=== PATIENT | female | born 1960 | race American Indian/Alaskan Native ===

== ENCOUNTER 2021-11-01 02:38 | Inpatient (IN) | payer MEDICARE ==
[2021-11-01] MEDS ORDERED: HEPARIN 10,000 UNITS/10 ML VIAL IV ONE (02:45)
--- NOTE | 2021-11-01 02:57 | Emergency Department Report ---
ED Chest Pain HPI - General Chief Complaint: Chest Pain Stated Complaint: CHEST PAIN STEMI PUI?: No Time Seen by Provider: 11/01/21 02:45 Source: patient, EMS Mode of arrival: Stretcher Limitations: No Limitations - History of Present Illness Initial Comments: Chief complaint: Chest pain HPI: This is a 60-year-old female with a history of hypertension, tobacco dependence, extensive family history of cardiac disease, HIV on ART, hepatitis C, GERD who presents with severe 10 out of 10 sudden onset of chest pain while watching TV 30 minutes prior to arrival. Her daughter called 911. [facility] informed charge nurse per phone that patient had ST elevation on cardiac tracing. Prior to patient's arrival I requested code STEMI Acetone Button Paster activation. Dr. Alfaro called prior to patient's arrival to obtain information. Upon the patient's arrival EMS cardiac tracing did indeed reveal 3 mm to [address] elevation in anterior leads. Patient received aspirin and 2 nitroglycerin tablets prior to arrival. She does not have a history of cardiac disease. Her son and both parents both had history of cardiac disease. Her son is due to cardiovascular disease. Patient has tight pressure burning sensation substernal radiating to the left chest. She also has concomitant shortness of breath nausea vomiting. Patient receives primary care at [facility], [place]. Complaint: chest pain -: Sudden, minutes(s) (30 minutes prior to arrival) Onset: during rest Pain Location: substernal Pain Radiation: other (Left chest) Severity: severe Severity scale (0 -10): 10 Quality: tightness, pressure, other (Burning) Consistency: constant Improves With: nothing Worsens With: nothing re: nausea, vomting, dyspnea Treatments Prior to Arrival: aspirin, nitroglycerin, other (No relief with aspirin or nitroglycerin patient received 324 mg of aspirin via EMS) - Related Data Allergies Allergy/AdvReac Type Severity Reaction Status Date / Time No Known Allergies Allergy Unverified 11/01/21 02:53 Heart Score - HEART Score History: Highly suspicious EKG: Significant ST-depression Age: 45-65 Risk factors: 1-2 risk factors Troponin: < normal limit HEART Score: 6 - EKG Read Time Time EKG Completed: 02:42 EKG Read Time: 02:42 - Critical Actions Critical Actions: 4-6 pts:12-16.6% risk of adverse cardiac event. Should be admitted ED Review of Systems ROS: Stated complaint: CHEST PAIN STEMI Other details as noted in HPI Comment: All other systems reviewed and negative Constitutional: denies: chills, fever, malaise Respiratory: shortness of breath. denies: cough, wheezing Cardiovascular: chest pain Gastrointestinal: nausea, vomiting ED Past Medical Hx - Past Medical History Previous Medical History?: Yes Hx Hypertension: Yes Hx GERD: Yes Hx Psychiatric Treatment: Yes (Depression) Hx HIV: Yes Additional medical history: Hep C - Surgical History Past Surgical History?: Yes Additional Surgical History: Hysterectomy. Knee replacement - Family History Family history: vascular disease - Social History Smoking Status: Current Every Day Smoker Substance Use Type: None ED Physical Exam - General Limitations: No Limitations General appearance: alert, anxious, other (Appears in severe pain appears uncomfortable slightly anxious) - Head Head exam: Present: atraumatic, normocephalic - Eye Eye exam: Present: normal appearance - ENT ENT exam: Present: mucous membranes moist - Neck Neck exam: Present: normal inspection, full ROM - Respiratory Respiratory exam: Present: normal lung sounds bilaterally. Absent: respiratory distress, wheezes, rales, rhonchi - Cardiovascular Cardiovascular Exam: Present: regular rate, normal rhythm. Absent: systolic murmur, diastolic murmur, rubs, gallop - GI/Abdominal GI/Abdominal exam: Present: soft, normal bowel sounds - Extremities Exam Extremities exam: Present: normal inspection - Neurological Exam Neurological exam: Present: alert, oriented X3 - Psychiatric Psychiatric exam: Present: normal affect, anxious - Skin Skin exam: Present: warm, dry, intact, normal color. Absent: rash ED Course Vital Signs 11/01/21 02:40 Temperature 98.3 F Pulse Rate 70 Respiratory 14 Rate Blood Pressure 126/71 Blood Pressure 126/71 [Right] O2 Sat by Pulse 100 Oximetry ED Medical Decision Making - Lab Data Result diagrams: 11/01/21 02:53 11/01/21 02:53 - EKG Data -: EKG Interpreted by Me EKG shows normal: sinus rhythm Rate: normal - EKG Data 11/01/21 03:01 EKG obtained 0242 EKG interpreted by me Rate 70 bpm normal sinus rhythm normal axis prolonged IL interval normal QTC ST elevation 2 to 4 mm V1 through V5. - Medical Decision Making Acute anterolateral [place]. Code STEMI activation prior to patient's arrival after receiving verbal report from EMS. Patient has equal blood pressure in both arms. Patient treated with heparin bolus and nitroglycerin infusion. With severe pain despite nitroglycerin infusion, patient received IV morphine. Work-up notable for leukocytosis nonspecific, PT PTT within normal limits chemistry revealed troponin value within normal range, Critical Care Time: Yes Critical care time in (mins) excluding proc time.: 40 Critical care attestation.: If time is entered above; I have spent that time in minutes in the direct care of this critically ill patient, excluding procedure time. 40 minutes of critical care time excluding procedures were used in the care of the patient. I discussed case with department secretary and charge nurse. I requested STEMI alert and Acetone Button Paster activation. I came immediately to the bedside upon patient's arrival. I obtained history from EMS at the bedside. I discussed treatment plan with the nursing team members. I reviewed electronic record. P atient required multiple interventions and reassessments. Spoke with python consultant Dr. Alfaro prior to patient's arrival and upon her arrival. I spoke with hospitalist who came immediately to the bedside to evaluate patient for admission. ED Disposition Clinical Impression: Acute anterolateral myocardial infarction, ST elevation myocardial infarction (STEMI) Disposition: ADMITTED INPATIENT Is pt being admited?: Yes Does the pt Need Aspirin: No Condition: Fair
[2021-11-01] MEDS: NITROGLYCERIN DRIP 50 MG/250 ML BOTTLE IV SCH ×2 (03:02→04:57)
[2021-11-01] MEDS ORDERED: MORPHINE 4 MG/1 ML INJ IV ONE (03:04)
[2021-11-01] MEDS ORDERED: MORPHINE 4 MG/1 ML INJ ONE (03:05)
[2021-11-01] MEDS ORDERED: MORPHINE 2 MG/1 ML INJ IV PRN (03:07)
[2021-11-01] MEDS ORDERED: HYDROmorphone 1 MG/1 ML INJ IV PRN (03:07)
[2021-11-01] MEDS ORDERED: ONDANSETRON 4 MG/2 ML INJ IV PRN (03:07)
[2021-11-01] MEDS ORDERED: NITROGLYCERIN 0.4 MG TAB SUBL SL PRN (03:07)
[2021-11-01] MEDS ORDERED: ALBUTEROL 2.5 MG/3 ML NEBU IH PRN (03:07)
[2021-11-01] MEDS ORDERED: SODIUM CHLORIDE 0.9% 1000 ML 1,000 ML IV SCH (03:15)
--- NOTE | 2021-11-01 03:16 | History and Physical Report ---
History of Present Illness Date of examination: 11/01/21 Date of admission: 11/01/21 Chief complaint: Chest pain History of present illness: 60-year-old female with a history of hypertension, tobacco dependence, extensive family history of cardiac disease, HIV on ART, hepatitis C, GERD was brought to the emergency room because of chest pain which is sharp 10/10, while watching TV 30 minutes prior to arrival. Patient has tight pressure burning sensation substernal radiating to the left chest. She also has concomitant shortness of breath nausea vomiting. Her daughter called 911. [facility] informed charge nurse per phone that patient had ST elevation on cardiac tracing. Prior to patient's arrival I requested code STEMI Spray Gun Striper activation. Dr. Alfaro called prior to patient's arrival to obtain information. Upon the patient's arrival EMS cardiac tracing did indeed reveal 3 mm [place] [address] elevation in anterior leads. Patient received aspirin and 2 nitroglycerin tablets prior to arrival. She does not have a history of cardiac disease. Her son and both parents both had history of cardiac disease. Her son is due to cardiovascular disease. In the emergency room patient is found to have ST elevation [place]. Subsequently case discussed with on-call alarm field technician and patient is going to the Spray Gun Striper for further intervention. All labs are pending Past History Past Medical History: GERD, hepatitis, hypertension, other (Tube okay abuse, HIV, hepatitis C) Medications and Allergies Allergies Allergy/AdvReac Type Severity Reaction Status Date / Time No Known Allergies Allergy Unverified 11/01/21 02:53 Active Meds: Active Medications Nitroglycerin/Dextrose (Tridil Drip 50mg/250ml) 50 mg in 250 mls @ 3 mls/hr IV TITR SIMBA; Protocol Last Admin: 11/01/21 03:02 Dose: 10 mcg/min, 3 mls/hr Review of Systems All systems: negative Cardiovascular: chest pain, lightheadedness, shortness of breath, dyspnea on exertion Exam - Constitutional Vitals: Temp Pulse Resp BP Pulse Ox 98.3 F 70 14 126/71 100 11/01/21 02:40 11/01/21 02:40 11/01/21 02:40 11/01/21 02:40 11/01/21 02:40 General appearance: Present: severe distress - EENT Eyes: Present: PERRL ENT: hearing intact, clear oral mucosa - Neck Neck: Present: supple, normal ROM - Respiratory Respiratory effort: normal Respiratory: bilateral: diminished - Cardiovascular Heart Sounds: Present: S1 & S2. Absent: rub, click - Extremities Extremities: pulses symmetrical, No edema Peripheral Pulses: within normal limits - Abdominal General gastrointestinal: Present: soft, non-tender, non-distended, normal bowel sounds Female genitourinary: Present: normal - Integumentary Integumentary: Present: clear, warm, dry - Musculoskeletal Musculoskeletal: gait normal, strength equal bilaterally - Psychiatric Psychiatric: appropriate mood/affect, intact judgment & insight - Neurologic Neurologic: CNII-XII intact, moves all extremities HEART Score - HEART Score EKG: Significant ST-depression Age: 45-65 Risk factors: 1-2 risk factors Troponin: < normal limit - Critical Actions Critical Actions: 4-6 pts:12-16.6% risk of adverse cardiac event. Should be admitted Assessment and Plan VTE prophylaxis?: Chemical Plan of care discussed with patient/family: Yes - Patient Problems (1) ST elevation myocardial infarction (STEMI) Status: Acute Plan to address problem: Admit the patient to the ICU. Aspirin 325 mg p.o. daily. Lipitor 80 mg p.o. daily. Nitroglycerin. Morphine 2 mg IV every 4 hours as needed. We consult on-call alarm field technician for cardiac cath and patient is going to the cardiac cath for further intervention. Serial cardiac enzyme. Echocardiogram (2) Acute anterolateral myocardial infarction Status: Acute Plan to address problem: Aspirin 325 mg p.o. daily. Lipitor 80 mg p.o. daily. Nitroglycerin. Morphine 2 mg IV every 4 hours as needed. We consult on-call alarm field technician for cardiac cath and patient is going to the cardiac cath for further intervention. Serial cardiac enzyme. Echocardiogram (3) HTN (hypertension) Status: Acute Plan to address problem: Hydralazine 10 mg IV every 6 hours as needed. Cardiology evaluation. Continue home medication (4) HIV (human immunodeficiency virus infection) Status: Acute Plan to address problem: Patient is on ART. Outpatient follow-up with infectious disease (5) Tobacco abuse Status: Acute Plan to address problem: Patient counseled regarding quitting smoking. We will put the patient on nicotine patch 14 mg to the skin daily (6) Hepatitis C Status: Acute Plan to address problem: Stable. Continue home medication (7) GERD (gastroesophageal reflux disease) Status: Acute Plan to address problem: Pepcid 20 mg IV every 12 hours for GI prophylaxis (8) DVT prophylaxis Status: Acute Plan to address problem: Anticoagulation as per interventional cardiology. Pepcid 20 mg IV every 12 hours for GI prophylaxis. Patient is a full code
[2021-11-01] MEDS ORDERED: HEPARIN/NS 5000 UNIT/500ML 1,000 ML IR ONE (03:18)
[2021-11-01] MEDS ORDERED: VERAPAMIL 5 MG/2 ML INJ ONE (03:18)
[2021-11-01] MEDS ORDERED: HEPARIN 10,000 UNITS/10 ML VIAL ONE ×2 (03:18→03:47)
[2021-11-01] MEDS ORDERED: NITROGLYCERIN SYRINGE 3 ML ONE (03:19)
[2021-11-01] MEDS ORDERED: LIDOCAINE (2%) 20 MG/1 ML VIAL 20 ML MDV INFILTRATI ONE (03:19)
[2021-11-01] MEDS ORDERED: hydrALAZINE 20 MG/1 ML INJ IV PRN (03:20)
[2021-11-01 03:22] LABS: INR 0.91 (0.87-1.13)
[2021-11-01 03:23] LABS: Partial Thromboplastin Time 31.1 Sec. (24.2-36.6)
[2021-11-01 03:28] LABS: Alanine Aminotransferase 11 units/L (7-56); Albumin 3.5 g/dL (3.9-5); BUN/Creatinine Ratio 15; Blood Urea Nitrogen 23 mg/dL (7-17); Calcium 8.8 mg/dL (8.4-10.2); Hemolysis Index 4
[2021-11-01 03:37] LABS: Hematocrit 34.5 % (30.3-42.9); Hemoglobin 10.8 gm/dl (10.1-14.3); Mean Corpuscular HGB Conc 31 % (30-34); Mean Corpuscular Volume 96 fl (79-97); Platelet Count 378 K/mm3 (140-440); Red Blood Count 3.61 M/mm3 (3.65-5.03); Red Cell Distribution Width 15.9 % (13.2-15.2)
[2021-11-01] MEDS: MIDAZOLAM 2 MG/2 ML INJ ONE ×2 (03:42→03:56)
[2021-11-01] MEDS: fentaNYL 100 MCG/2 ML INJ ONE ×2 (03:43→03:55)
[2021-11-01] MEDS ORDERED: SODIUM CHLORIDE 0.9% 1000 ML 1,000 ML ONE (03:49)
[2021-11-01] MEDS ORDERED: TIROFIBAN/NS 12,500 MCG/250 ML BAG IV ONE (04:07)
[2021-11-01 04:15] LABS: RBC Morphology Normal; Total Cells Counted 100
[2021-11-01] MEDS ORDERED: TICAGRELOR 90 MG TAB ONE ×2 (04:16→11:55)
[2021-11-01] MEDS ORDERED: NITROGLYCERIN DRIP 50 MG/250 ML BOTTLE IV ONE (04:23)
--- NOTE | 2021-11-01 04:35 | Consultation ---
History of Present Illness Consult date: 11/01/21 Requesting physician: ROSA WATT Consult reason: chest pain History of present illness: Patient is a 60 with no prior cardiac history. She has a history of HIV, hepatitis C smoking and a family history of coronary artery disease. She presented by EMS after she experienced spontaneous onset of chest pain while wa tching TV. Pain radiating to her left shoulder. No particular aggravating factors no particular relieving factors associated with mild diaphoresis. EMT noticed that patient had significant ST-T wave changes and code STEMI was called in the field. On arrival to the ER patient's chest pain had significantly improved. EKG revealed anterolateral ST elevation [place]. Patient was emergently taken to the [facility] and underwent primary PCI of the LAD. Post PCI patient is doing well currently chest pain-free and is being admitted to the ICU for further post OK care. Past History Past Medical History: GERD, hepatitis, hypertension, other (Tube okay abuse, HIV , hepatitis C) Social history: smoking Family history: CAD Medications and Allergies Allergies Allergy/AdvReac Type Severity Reaction Status Date / Time No Known Allergies Allergy Unverified 11/01/21 02:53 Active Meds: Active Medications Acetaminophen (Acetaminophen 325 Mg Tab) 650 mg PO Q4H PRN PRN Reason: Pain MILD(1-3)/Fever >100.5/HOLL[place] Albuterol (Albuterol 2.5 Mg/3 Ml Nebu) 2.5 mg IH Q4HRT PRN PRN Reason: Shortness Of Breath Albuterol/Ipratropium (Ipratropium/Albuterol Sulfate 3 Ml Ampul.Neb) 1 ampul IH Q6HRT [facility] Aspirin (Aspirin Ec 325 Mg Tab) 325 mg PO QDAY SIMBA Atorvastatin Calcium (Atorvastatin 40 Mg Tab) 80 mg PO QHS SIMBA Hydralazine HCl (Hydralazine 20 Mg/1 Ml Inj) 10 mg IV Q6H PRN PRN Reason: Blood Pressure Hydromorphone HCl (Hydromorphone 1 Mg/1 Ml Inj) 0.5 mg IV Q3H PRN PRN Reason: Pain , Severe (7-10) Nitroglycerin/Dextrose (Tridil Drip 50mg/250ml) 50 mg in 250 mls @ 3 mls/hr IV TITR SIMBA; Protocol Last Titration: 11/01/21 03:15 Dose: 15 mcg/min, 4.5 mls/hr Sodium Chloride (Nacl 0.9% 1000 Ml) 1,000 mls @ 100 mls/hr IV DIRECT SIMBA Morphine Sulfate (Morphine 2 Mg/1 Ml Inj) 2 mg IV Q4H PRN PRN Reason: Pain, Moderate (4-6) Nitroglycerin (Nitroglycerin 0.4 Mg Tab Subl) 0.4 mg SL .Q5MIN PRN PRN Reason: Chest Pain Ondansetron HCl (Ondansetron 4 Mg/2 Ml Inj) 4 mg IV Q8H PRN PRN Reason: Nausea And Vomiting Sodium Chloride (Sodium Chloride 0.9% 10 Ml Flush Syringe) 10 ml IV BID SIMBA Sodium Chloride (Sodium Chloride 0.9% 10 Ml Flush Syringe) 10 ml IV PRN PRN PRN Reason: LINE FLUSH Review of Systems All systems: negative (As mentioned above) Physical Examination Vital Signs Temp Pulse Resp BP Pulse Ox 98.3 F 70 14 126/71 100 11/01/21 02:40 11/01/21 02:40 11/01/21 02:40 11/01/21 02:40 11/01/21 02:40 General appearance: no acute distress, obese HEENT: Positive: Normocephaly Neck: Positive: neck supple Cardiac: Positive: Reg Rate and Rhythm Lungs: Positive: clear to auscultation Neuro: Positive: Grossly Intact Abdomen: Positive: Unremarkable Female genitourinary: deferred Extremities: Present: normal Results 11/01/21 02:53 11/01/21 02:53 Cardiac Enzymes 11/01/21 Range/Units 02:53 AST 12 (5-40) units/L Coagulation 11/01/21 Range/Units 02:53 PT 13.3 (12.2-14.9) Sec. INR 0.91 (0.87-1.13) APTT 31.1 (24.2-36.6) Sec. CBC 11/01/21 Range/Units 02:53 WBC 17.7 H (4.5-11.0) K/mm3 RBC 3.61 L (3.65-5.03) M/mm3 Hgb 10.8 (10.1-14.3) gm/dl Hct 34.5 (30.3-42.9) % Plt Count 378 (140-440) K/mm3 Lymph # (Auto) Driver Courier Comprehensive Metabolic Panel 11/01/21 Range/Units 02:53 Sodium 135 L (137-145) mmol/L Potassium 4.2 (3.6-5.0) mmol/L Chloride 100.8 (98-107) mmol/L Carbon Dioxide 21 L (22-30) mmol/L BUN 23 H (7-17) mg/dL Creatinine 1.5 H (0.6-1.2) mg/dL Glucose 123 H (65-100) mg/dL Calcium 8.8 (8.4-10.2) mg/dL AST 12 (5-40) units/L ALT 11 (7-56) units/L Alkaline Phosphatase 199 H (35-129) units/L Total Protein 7.3 (6.3-8.2) g/dL Albumin 3.5 L (3.9-5) g/dL EKG interpretations - Telemetry EKG Rhythm: Sinus Rhythm (With acute anterolateral ST elevation minimal reciprocal ST depressions) Assessment and Plan Impression 1. Chest pain secondary to acute ST elevation [place] 2. Acute ST elevation [place] status post primary PCI of the LAD 3. Ischemic cardiomyopathy with a EF around 40% and anterior wall hypokinesis 4. Essential hypertension currently controlled on IV nitroglycerin 5. Acute renal failure 6. HIV on retroviral therapy 7. History of hepatitis C 8. Tobacco abuse 9. Obesity Plan 1. Aspirin Brilinta beta-blockers and high intensity statins 2. In view of the elevated LVEDP continue IV nitroglycerin and her blood pressure stable slowly wean off once blood pressure is stable. 3. Low-dose IV diuretics in view of the significantly elevated LVEDP and mild cardiomyopathy 4. Aggrastat for 12 5. Gentle IV hydration monitor renal function 6. Routine post OK care 7. Rest per primary team 8. Smoking cessation
[2021-11-01] MEDS ORDERED: TIROFIBAN/NS 12,500 MCG/250 ML BAG IV SCH (05:00)
[2021-11-01] MEDS: FUROSEMIDE 20 MG/2 ML INJ IV SCH ×2 (05:44→18:13)
--- NOTE | 2021-11-01 05:55 | XRay Report ---
CHEST 1 VIEW INDICATION: chest pain. COMPARISON: None FINDINGS: SUPPORT DEVICES: None. HEART: Mild diffuse interstitial prominence as could be seen with interstitial edema. No effusion. Ot herwise clear lungs. LUNGS/PLEURA: No acute air space or interstitial disease. ADDITIONAL FINDINGS: None. IMPRESSION: 1. Lung findings as above. Signer Name: Rafael Marroquin MD Signed: 11/01/2021 5:50 AM Workstation Name: [id number]
[2021-11-01 07:57] LABS: Chol/HDL Ratio 1.9 %
[2021-11-01] MEDS ORDERED: IPRATROPIUM/ALBUTEROL SULFATE 3 ML AMPUL.NEB IH SCH (08:00)
[2021-11-01] MEDS: PANTOPRAZOLE 40 MG TAB PO SCH (09:35)
[2021-11-01] MEDS: ASPIRIN 81 MG TAB CHEW PO SCH (09:37)
[2021-11-01] MEDS ORDERED: carvediloL 6.25 MG TAB PO SCH (10:00)
[2021-11-01] MEDS ORDERED: ASPIRIN EC 325 MG TAB PO SCH (10:00)
[2021-11-01] MEDS ORDERED: amLODIPine 5 MG TAB PO SCH (10:00)
--- NOTE | 2021-11-01 10:03 | Progress Note ---
Assessment and Plan - Patient Problems (1) Acute anterolateral myocardial infarction Current Visit: No Status: Acute Plan to address problem: Status post primary PCI of the mid LAD. LV systolic function was mildly to moderately impaired on LV angiography. Patient is on Aggrastat therapy. We will discontinue intravenous nitroglycerin, and switch to Imdur. Additional medicines including atorvastatin, metoprolol, baby aspirin and Brilinta. For afterload reduction, I will hold off ROBERTO or ARB due to the finding of elevated creatinine on presentation, and instead use hydralazine 50 mg 3 times daily. Procardia XL 60 mg for hypertension. Patient is stable for transfer to stepdown or telemetry. Anticipate discharge tomorrow if she remains clinically stable. Subjective Date of service: 11/01/21 Principal diagnosis: Acute myocardial infarction Interval history: Patient is comfortable, alert and oriented x3, no chest pain, following primary PCI of the mid LAD for acute STEMI. Objective Vital Signs Temp Pulse Resp BP BP Pulse Ox 11/01/21 09:36 86 153/98 11/01/21 09:34 75 153/98 11/01/21 09:31 87 17 153/98 99 11/01/21 09:21 74 18 162/88 100 11/01/21 09:11 89 21 167/98 100 11/01/21 09:01 93 H 27 H 167/98 100 11/01/21 08:51 94 H 20 164/83 100 11/01/21 08:41 81 24 161/80 100 11/01/21 08:31 78 23 161/80 100 11/01/21 08:21 92 H 15 171/86 100 11/01/21 08:11 89 20 168/130 100 11/01/21 08:01 92 H 16 168/130 100 11/01/21 07:51 101 H 17 168/130 100 11/01/21 07:43 98.0 F 11/01/21 07:41 74 20 164/96 100 11/01/21 07:30 85 18 164/96 100 11/01/21 07:21 145/85 100 11/01/21 07:11 102/68 100 11/01/21 07:05 99 11/01/21 07:01 89 19 102/68 100 11/01/21 07:00 99 11/01/21 06:51 98 H 21 102/68 100 11/01/21 06:41 98 H 21 168/90 100 11/01/21 06:31 90 15 168/90 100 11/01/21 06:21 85 21 182/86 91 11/01/21 06:11 90 24 127/94 99 11/01/21 06:01 79 21 127/94 89 11/01/21 06:00 98.1 F 11/01/21 05:51 81 20 127/94 97 11/01/21 05:41 83 19 128/87 99 11/01/21 05:31 83 20 128/87 97 11/01/21 05:21 76 29 H 128/87 97 11/01/21 05:11 86 18 11/01/21 05:09 81 11/01/21 02:40 98.3 F 70 14 126/71 126/71 100 - Physical Examination General: No Apparent Distress HEENT: Positive: Normocephaly Neck: Positive: neck supple Cardiac: Positive: Reg Rate and Rhythm Lungs: Positive: clear to auscultation Neuro: Positive: Grossly Intact Abdomen: Positive: Soft Skin: Positive: Clear Extremities: Absent: edema - Labs and Meds Cardiac Enzymes 11/01/21 Range/Units 02:53 AST 12 (5-40) units/L Coagulation 11/01/21 Range/Units 02:53 PT 13.3 (12.2-14.9) Sec. INR 0.91 (0.87-1.13) APTT 31.1 (24.2-36.6) Sec. Lipids 11/01/21 Range/Units 05:29 Triglycerides 266 H (2-149) mg/dL Cholesterol 103 (50-199) mg/dL HDL Cholesterol 54 (40-59) mg/dL Cholesterol/HDL Ratio 1.90 % CBC 11/01/21 Range/Units 02:53 WBC 17.7 H (4.5-11.0) K/mm3 RBC 3.61 L (3.65-5.03) M/mm3 Hgb 10.8 (10.1-14.3) gm/dl Hct 34.5 (30.3-42.9) % Plt Count 378 (140-440) K/mm3 Lymph # (Auto) Radio Program Checker Comprehensive Metabolic Panel 11/01/21 Range/Units 02:53 Sodium 135 L (137-145) mmol/L Potassium 4.2 (3.6-5.0) mmol/L Chloride 100.8 (98-107) mmol/L Carbon Dioxide 21 L (22-30) mmol/L BUN 23 H (7-17) mg/dL Creatinine 1.5 H (0.6-1.2) mg/dL Glucose 123 H (65-100) mg/dL Calcium 8.8 (8.4-10.2) mg/dL AST 12 (5-40) units/L ALT 11 (7-56) units/L Alkaline Phosphatase 199 H (35-129) units/L Total Protein 7.3 (6.3-8.2) g/dL Albumin 3.5 L (3.9-5) g/dL
--- NOTE | 2021-11-01 10:17 | Electrocardiograph Report ---
[facility] Test Date: 2021-11-01 Test Time: 02:42:53 Pat Name: BEKA BELLO Department: Room: A254 Gender: F Business Development: ZARA : 1960 Requested By: CHAY WASHBURN Order Number: [id number] Reading MD: Brody Vizcaino Measurements Intervals [place] Rate: 69 P: -1 FL: 215 QRS: -3 QRSD: 93 T: 45 QT: 434 QTc: 467 Interpretive Statements Sinus rhythm Borderline prolonged [place] interval Anterior infarct, acute Lateral wall also involved No previous ECG available for comparison Electronically Signed On 11-01-2021 10:17:05 EST by Brody Vizcaino
--- NOTE | 2021-11-01 10:18 | Electrocardiograph Report ---
[facility] Test Date: 2021-11-01 Test Time: 05:51:35 Pat Name: BEKA BELLO Department: Room: A254 1 Gender: F Broommaker: RESP : 1960 Requested By: VICENTE LINARES Order Number: [id number] Reading MD: Brody Vizcaino Measurements Intervals [place] Rate: 82 P: 36 FL: 235 QRS: 13 QRSD: 92 T: 28 QT: 412 QTc: 483 Interpretive Statements Sinus rhythm Prolonged FL interval ST elevations in anterior bharath normalized. Electronically Signed On 11-01-2021 10:17:59 EST by Brody Vizcaino
[2021-11-01] MEDS: NIFEdipine XL 60 MG TAB PO SCH (11:28)
[2021-11-01] MEDS: hydrALAZINE 25 MG TAB PO SCH ×2 (11:31→21:04)
[2021-11-01] MEDS: METOPROLOL TARTRATE 50 MG TAB PO SCH ×2 (11:32→21:05)
[2021-11-01] MEDS: HYDROcodone/ACETAMINOPHEN 5-325 MG TAB PO PRN ×2 (14:22→20:55)
[2021-11-01 14:30] LABS: BUN/Creatinine Ratio 19; Blood Urea Nitrogen 21 mg/dL (7-17); Calcium 9.2 mg/dL (8.4-10.2); Hemolysis Index 5
[2021-11-01 14:47] LABS: Hematocrit 34.5 % (30.3-42.9); Hemoglobin 11.1 gm/dl (10.1-14.3); Mean Corpuscular HGB Conc 32 % (30-34); Mean Corpuscular Volume 95 fl (79-97); Platelet Count 329 K/mm3 (140-440); Red Blood Count 3.63 M/mm3 (3.65-5.03); Red Cell Distribution Width 15.6 % (13.2-15.2)
--- NOTE | 2021-11-01 15:14 | Event Note ---
<DEE ROBERSON - Last Filed: 11/01/21 16:34> Date: 11/01/21 This is a 60-year-old female with HTN, HIV on antiretroviral therapy, hepatitis C, GERD, depression and current tobacco (half a pack per day for 20 years) abuse who presented to the emergency department on 11/01 with complaints of sharp chest pain 10/10 with chest tightness and substernal burning sensation with radiation to left chest associated with shortness of breath, nausea and vomiting. Code STEMI was called when EMS informed charge nurse patient had ST elevation on ECG. EMS administered aspirin and nitroglycerin x2. Upon arrival to emergency department stating was comfortable throughout the ECG and she was taken to [facility] Engineer with cardiology where she underwent primary PCI of LAD with deployment of the stent. 11/01: Patient admitted to ICU postop with Aggrastat and nitroglycerin drip. Nitroglycerin drip weaned off and patient started on oral antihypertensives. Cleared to transfer to the floor. COVID PCR pending. This is a 60-year-old female with HTN, HIV, hepatitis C, depression, GERD and current tobacco abuse admitted with STEMI Neuro: h/o depression -Resume home antidepressant when obtained -Avoid delirium -Maintain sleep-wake cycle Cardio: STEMI, CAD, ischemic cardiomyopathy, h/o HTN -Cardiology consulted, appreciate recommendations -99% occlusion of LAD -S/p PCI to LAD with deployment of stent x1 -S/p nitroglycerin drip -Aggrastat drip for 12 hours -Statin -Beta-ness, aspirin 81 mg, Brilinta, hydralazine, Procardia -Blood pressure monitor protocol -LDL panel noted -IV Lasix -Echocardiogram pending -Intraprocedure noted with ischemic cardiomyopathy ejection fraction approximately 40% and anterior wall hypokinesis -Per cardiology avoid ACEi or ARB due to elevated creatinine presentation Respiratory: Acute Hypoxic Resp. failure, h/o tobacco abuse -Home medications include albuterol -Tobacco cessation education -Supplemental oxygenation as needed -SPO2 monitoring -Pulmonary hygiene -Need outpatient follow up with Pulm GI: h/o GERD, Hep C -Cardiac diet -Encouraged lifestyle and dietary modifications upon discharge -PPI -BR: Colace -24-hour -2282 ML : Acute kidney injury likely secondary to vasomotor nephropathy, hyponatremia (resolved), metabolic acidosis (resolving) -Presented with a BUN/creatinine of 1.5/23 -11/01 BUN/creatinine 1.11/10 -On IV diuretic with Lasix -Strict I&O -Trend BMP ID: h/o HIV -resume home antiretroviral therapy once obtained -followup with outpt HIV clinic -May need CD4 count -Monitor WBC and temp curve Heme: Leukocytosis -Presented with elevated WBC -Trend CBC -Transfuse for hbg<7 -SCDs to BLE while in bed Endo: NAD -Avoid hypoglycemia Dispo: Transfer to floor with tele (cleared by cardio) The high probability of a clinically significant, sudden or life threatening deterioration of the [cardio] system(s) required my full and direct attention, intervention and personal management. The aggregate critical care time was [] minutes. This time is in addition to time spent performing reported procedures but includes the following: [x] Data Review and interpretation [x] Patient assessment and monitoring of vital signs [x] Documentation [x] Medication orders and management <ERICK SMALL - Last Filed: 11/08/21 20:21> 60 min cct
[2021-11-01] MEDS: DOCUSATE SODIUM 100 MG CAP PO SCH (21:05)
[2021-11-01] MEDS: TICAGRELOR 90 MG TAB PO SCH (21:05)
[2021-11-01] MEDS ORDERED: ALPRAZolam 0.25 MG TAB PO ONE (22:47)
--- NOTE | 2021-11-02 01:35 | Operative Report ---
DATE OF SURGERY: 11/01/2021 CORONARY ANGIOGRAM AND PERCUTANEOUS INTERVENTION REPORT PROCEDURES PERFORMED: 1. Selective left and right coronary angiogram. 2. Left ventriculogram. 3. Successful percutaneous intervention of the proximal LAD with deployment of drug-eluting stent. INDICATION: Acute anterior ST-elevation WI. MODERATE SEDATION DETAILS: Moderate sedation was given under my direct supervision and continuous hemodynamic monitoring. Versed and fentanyl was given. Sedation start time 3:39 a.m., sedation end time 4:15 a.m. Total sedation time is 36 minutes. PROCEDURE DETAILS: 1. The patient was prepped and draped in a sterile fashion after informed consent. 2. The right radial site was anesthetized using local Lidocaine infiltration. 3. The right femoral radial was entered using the Seldinger technique, followed by the placement of a 6-Guatemalan sheath. 4. Selective left and right coronary angiography was performed using 6-[place]na catheters. Angiograms were done in multiple projections. 5. Selective left ventricular angiography was done using a 6-[place] pigtail catheter. Left ventricular angiography was performed in the right anterior oblique projection. 6. The catheters were withdrawn, the sheath removed, and hemostasis was achieved.Post procedure TR band sed for complete hemostasis. 7. The patient was transferred to the post cardiac catheterization unit in stable condition. There were no complications, equipment malfunction, or technical difficulties. FINDINGS: 1. Hemodynamics: AO 148/84, LV 148/30, LVEDP was 36. 2. Left ventriculogram done in 30-degree ACHARYA projection shows moderately reduced LV systolic function, EF around 40-45% with anterior wall hypokinesis. ANGIOGRAM DETAILS: 1. Left main is angiographically normal. 2. LAD is a large caliber vessel. A complex bifurcation proximal thrombotic 99% stenosis is noted. 3. The circumflex is a medium caliber vessel with significant tortuosity, but no significant stenosis. 4. Right coronary artery is a medium caliber dominant vessel with no significant stenosis. IMPRESSION: 1. Significant complex single vessel coronary artery disease including proximal bifurcating 90% thrombotic lesion of the LAD. 2. Significantly elevated left ventricular end-diastolic pressure. 3. Moderately reduced left ventricular systolic function. PLAN: Proceed with PCI of the LAD. PERCUTANEOUS INTERVENTION DETAILS: Intravenous heparin was used to maintain therapeutic ACT. Intravenous Aggrastat also initiated given the thrombotic nature of the stenosis. A Runthrough wire was advanced across the LAD. We had difficulty crossing the second wire into the diagonal. Once the BMW wire was advanced across the diagonal, initial predilatation of the lesion was done, following which a 3.5 x 15 mm Resolute drug-eluting stent was deployed across the stenosis. This was then serially postdilated with a 3.5 and then 4.0 balloon and later on a 4.5 balloon to high atmospheres. Repeat angiogram showed good results. There was some thrombus shift into the diagonal. The diagonal wire was withdrawn and re-crossed. Slight dottering was done using a compliant balloon. Angiogram repeated. No significant diagonal occlusion noted. The patient tolerated the procedure well. Guide and wire were removed. A 180 mg of Brilinta was given. IMPRESSION: Status post successful percutaneous intervention of a complex left anterior descending bifurcation using a 3.5 x 12 mm Resolute drug-eluting stent. PLAN: 1. Aspirin for life. 2. Brilinta for 1 year, preferably more. 3. Routine post WI adjuvant pharmacotherapy and care. 4. Aggrastat for 12 hours. 5. Note, the patient had a significant tortuous diagonal LAD bifurcation. We had significant difficulty in crossing wires into the bifurcation lesion. TID: [id number] RECEIPT: [id number] MARILIN/MARIAMA/GERBER ESQUIVEL
[2021-11-02] MEDS: HYDROcodone/ACETAMINOPHEN 5-325 MG TAB PO PRN ×3 (02:43→23:05)
[2021-11-02 05:36] LABS: Basophils % (Auto) 0.4 % (0.0-1.8); Eosinophils # (Auto) 0.1 K/mm3 (0.0-0.4); Eosinophils % (Auto) 0.7 % (0.0-4.3); Hematocrit 36.2 % (30.3-42.9); Hemoglobin 11.7 gm/dl (10.1-14.3); Lymphocytes # (Auto) 2.8 K/mm3 (1.2-5.4); Lymphocytes % (Auto) 30.9 % (13.4-35.0); Mean Corpuscular HGB Conc 32 % (30-34); Mean Corpuscular Volume 94 fl (79-97); Monocytes # (Auto) 0.4 K/mm3 (0.0-0.8); Monocytes % (Auto) 4.8 % (0.0-7.3); Platelet Count 352 K/mm3 (140-440); Red Blood Count 3.85 M/mm3 (3.65-5.03); Red Cell Distribution Width 15.7 % (13.2-15.2)
[2021-11-02 05:48] LABS: BUN/Creatinine Ratio 17; Blood Urea Nitrogen 19 mg/dL (7-17); Calcium 9.4 mg/dL (8.4-10.2); Hemolysis Index 17
[2021-11-02] MEDS: hydrALAZINE 25 MG TAB PO SCH ×3 (06:28→21:00)
[2021-11-02] MEDS: FUROSEMIDE 20 MG/2 ML INJ IV SCH ×2 (06:29→17:32)
--- NOTE | 2021-11-02 08:38 | XRay Report ---
CHEST - 1 VIEW 0723 hours INDICATION: post pci COMPARISON: Yesterday FINDINGS: Support devices: None Heart: Stable cardiomediastinal silhouette. Lungs/pleura: Poor inspiration. The lungs remain generally clear. No pneumothorax. Additional findings: None. IMPRESSION: Unchanged exam. No acute process noted. Signer Name: Ilir Mason Jr, MD Signed: 11/02/2021 8:34 AM Workstation Name: [id number]
--- NOTE | 2021-11-02 10:54 | Electrocardiograph Report ---
[facility] Test Date: 2021-11-01 Test Time: 10:09:11 Pat Name: BEKA BELLO Department: Room: A474 Gender: F Immigration Case Manager: TAYLOR : 1960 Requested By: ROSA WATT Order Number: [id number] Reading MD: Brody Vizcaino Measurements Intervals Carmine Rate: 69 P: 8 RI: 207 QRS: 2 QRSD: 88 T: 23 QT: 454 QTc: 485 Interpretive Statements Sinus rhythm Atrial premature complex Left ventricular hypertrophy Abnormal T, consider ischemia, anterior leads Compared to ECG 11/01/2021 05:51:35 Atrial premature complex(es) now present Changes of evolving anterior MInoted. Electronically Signed On 11-02-2021 10:54:01 EST by Brody Vizcaino
[2021-11-02] MEDS: NIFEdipine XL 60 MG TAB PO SCH (13:00)
--- NOTE | 2021-11-02 13:12 | Progress Note ---
Assessment and Plan - Patient Problems (1) Acute anterolateral myocardial infarction Current Visit: No Status: Inactive Plan to address problem: Status post primary PCI of the mid LAD. LV systolic function was mildly to moderately impaired on LV angiography. Patient is on guideline directed medical therapy. (2) Bradycardia Current Visit: Yes Status: Acute Plan to address problem: Patient demonstrates intermittent AV block with P waves and no AV conduction. We will discontinue metoprolol, hold anticipated discharge, and request electrophysiologic consultation. Subjective Date of service: 11/02/21 Principal diagnosis: Acute myocardial infarction Interval history: The patient is comfortable in no acute distress. No new cardiac complaints. On monitoring manager, she has been demonstrating intermittent, marked bradycardia. During the night, she was described with a 6-second pause consisting of P waves with no AV conduction. This morning, there has been intermittent episodes of similar but shorter pauses. Objective Vital Signs Temp Pulse Resp BP Pulse Ox 11/02/21 12:04 100 11/02/21 06:28 70 110/67 11/02/21 04:00 70 100 11/02/21 00:00 100 11/01/21 23:33 97.9 F 68 19 110/67 100 11/01/21 22:41 73 15 121/66 98 11/01/21 22:31 59 L 17 121/66 98 11/01/21 22:21 74 27 H 121/66 94 11/01/21 22:11 72 12 121/66 95 11/01/21 22:03 72 18 121/66 94 11/01/21 22:01 72 24 121/66 97 11/01/21 21:01 71 24 145/70 96 11/01/21 20:21 64 23 151/73 98 11/01/21 20:11 87 18 146/65 98 11/01/21 20:01 74 21 146/65 100 11/01/21 20:00 97.9 F 99 11/01/21 19:51 74 20 150/80 100 11/01/21 19:42 67 11/01/21 19:41 66 23 145/83 96 11/01/21 19:30 65 19 145/83 99 11/01/21 19:21 78 23 147/87 98 11/01/21 19:11 85 29 H 146/79 99 11/01/21 19:01 69 20 146/79 96 11/01/21 18:51 74 27 H 146/80 95 11/01/21 18:41 80 21 144/71 94 11/01/21 18:30 67 13 144/71 100 11/01/21 18:21 72 19 142/79 100 11/01/21 18:11 71 20 147/75 98 11/01/21 18:00 75 22 147/75 97 11/01/21 17:51 69 23 127/83 98 11/01/21 17:41 77 18 136/75 97 11/01/21 17:30 77 21 136/75 96 11/01/21 17:21 79 26 H 127/62 97 11/01/21 17:11 70 21 130/57 99 11/01/21 17:01 77 26 H 130/57 99 11/01/21 16:51 73 24 151/70 97 11/01/21 16:47 98.3 F 11/01/21 16:41 72 15 144/67 98 11/01/21 16:30 74 16 144/67 95 11/01/21 16:21 75 19 135/84 97 11/01/21 16:11 70 18 133/81 95 11/01/21 16:00 78 19 133/81 100 11/01/21 15:51 63 16 139/65 99 11/01/21 15:41 67 20 138/57 100 11/01/21 15:30 71 18 138/57 100 11/01/21 15:21 84 17 136/58 99 11/01/21 15:11 76 21 138/71 100 11/01/21 15:00 71 16 138/71 100 11/01/21 14:51 71 17 150/60 100 11/01/21 14:41 64 15 117/84 100 11/01/21 14:30 79 19 117/84 100 11/01/21 14:21 78 15 138/88 100 11/01/21 14:11 79 18 138/73 100 11/01/21 14:01 73 20 138/73 100 11/01/21 13:51 74 21 134/78 99 11/01/21 13:41 77 19 131/75 100 11/01/21 13:31 76 19 131/75 100 11/01/21 13:21 66 21 142/72 100 11/01/21 13:11 69 15 139/83 100 - Physical Examination General: No Apparent Distress HEENT: Positive: Normocephaly Neck: Positive: neck supple Cardiac: Positive: Reg Rate and Rhythm Lungs: Positive: Decreased Breath Sounds Neuro: Positive: Grossly Intact Abdomen: Positive: Soft Skin: Positive: Clear Extremities: Absent: edema - Labs and Meds CBC 11/01/21 11/02/21 Range/Units 13:55 04:17 WBC 10.7 9.0 (4.5-11.0) K/mm3 RBC 3.63 L 3.85 (3.65-5.03) M/mm3 Hgb 11.1 11.7 (10.1-14.3) gm/dl Hct 34.5 36.2 (30.3-42.9) % Plt Count 329 352 (140-440) K/mm3 Lymph # (Auto) 2.8 (1.2-5.4) K/mm3 Gillespie # (Auto) 0.4 (0.0-0.8) K/mm3 Eos # (Auto) 0.1 (0.0-0.4) K/mm3 Baso # (Auto) 0.0 (0.0-0.1) K/mm3 Comprehensive Metabolic Panel 11/01/21 11/02/21 Range/Units 13:55 04:17 Sodium 139 136 L (137-145) mmol/L Potassium 4.8 4.5 (3.6-5.0) mmol/L Chloride 104.8 100.8 (98-107) mmol/L Carbon Dioxide 22 22 (22-30) mmol/L BUN 21 H 19 H (7-17) mg/dL Creatinine 1.1 1.1 (0.6-1.2) mg/dL Glucose 96 103 H (65-100) mg/dL Calcium 9.2 9.4 (8.4-10.2) mg/dL
[2021-11-02] MEDS: ASPIRIN 81 MG TAB CHEW PO SCH (13:40)
[2021-11-02] MEDS: TICAGRELOR 90 MG TAB PO SCH ×2 (13:42→21:00)
[2021-11-02] MEDS: PANTOPRAZOLE 40 MG TAB PO SCH (13:42)
[2021-11-02] MEDS: DOCUSATE SODIUM 100 MG CAP PO SCH ×2 (13:42→21:00)
--- NOTE | 2021-11-02 15:27 | Consultation ---
History of Present Illness Consult date: 11/02/21 Consult reason: bradycardia History of present illness: 60-year-old female with past medical history of hepatitis C and HIV presented with anterior STEMI on 11/01/2021 for which she received proximal LAD stent. She has been also found to have ischemic cardiomyopathy with LVEF 35 to 40% per echo. Electrophysiology is consulted due to prolonged pauses and bradycardia concerning for AV block. Patient currently reports shortness of breath but no chest pain. She denies lightheadedness, dizziness, or syncope. Review of telemetry shows episodes of high-grade and Mobitz 2 AV block. She has been noted to have pauses up to 6 seconds, which occurred overnight. Her beta- ness therapy has been held, and currently heart rates are 80 bpm with one-to-one AV conduction and no further AV block or pauses noted. Past History Past Medical History: GERD, hepatitis, hypertension, other (Tube okay abuse, HIV, hepatitis C) Social history: smoking Family history: CAD Medications and Allergies Allergies Allergy/AdvReac Type Severity Reaction Status Date / Time No Known Allergies Allergy Verified 11/02/21 08:55 Home Medications Medication Instructions Recorded Confirmed Last Taken Type ARIPiprazole [Abilify TAB] 5 mg PO DAILY 11/02/21 11/02/21 2 Days Ago History ~10/31/21 Albuterol Mdi (or & Nicu Only) 2 puff IH QID PRN 11/02/21 11/02/21 2 Days Ago History [ProAir HFA Inhaler] ~10/31/21 AtorvaSTATin [Lipitor] 40 mg PO QHS 11/02/21 11/02/21 2 Days Ago History ~10/31/21 Bictegrav/Emtricit/Tenofov Ala 1 tab PO QDAY 11/02/21 11/02/21 2 Days Ago History [Biktarvy 50-200-25 mg Tablet] ~10/31/21 Budesonide/Formoterol Fumarate 2 puff IH QDAY PRN 11/02/21 11/02/21 2 Days Ago History [Symbicort 80-4.5 Mcg Inhaler] ~10/31/21 Candesartan (Nf) [Atacand (Nf)] 32 mg PO QDAY 11/02/21 11/02/21 2 Days Ago History ~10/31/21 Chlorthalidone 50 mg PO QDAY 11/02/21 11/02/21 2 Days Ago History ~10/31/21 Diclofenac 1% [Diclofenac 1% 2 - 4 gm TP QID PRN 11/02/21 11/02/21 2 Days Ago History topical gel] ~10/31/21 Esomeprazole Magnesium [NexIUM] 40 mg PO QDAY 11/02/21 11/02/21 2 Days Ago History ~10/31/21 HYDROcodone/APAP 5-325 [[place] 1 tab PO BID 11/02/21 11/02/21 2 Days Ago History 5/325] ~10/31/21 Trazodone HCl 100 mg PO QHS 11/02/21 11/02/21 2 Days Ago History ~10/31/21 Valacyclovir HCl [Valacyclovir] 1,000 mg PO QDAY 11/02/21 11/02/21 2 Days Ago History ~10/31/21 amLODIPine [Norvasc] 10 mg PO DAILY 11/02/21 11/02/21 2 Days Ago History ~10/31/21 carvediloL [Coreg] 25 mg PO BID 11/02/21 11/02/21 2 Days Ago History ~10/31/21 Active Meds: Active Medications Acetaminophen (Acetaminophen 325 Mg Tab) 650 mg PO Q4H PRN PRN Reason: Pain MILD(1-3)/Fever >100.5/[place] Hydrocodone Bitart/Acetaminophen (Hydrocodone/Acetaminophen 5-325 Mg Tab) 1 each PO Q6H PRN PRN Reason: Pain, Moderate (4-6) Last Admin: 11/02/21 02:43 Dose: 1 each Albuterol (Albuterol 2.5 Mg/3 Ml Nebu) 2.5 mg IH Q4HRT PRN PRN Reason: Shortness Of Breath Aspirin (Aspirin 81 Mg Tab Chew) 81 mg PO QDAY [facility] Last Admin: 11/02/21 13:40 Dose: 81 mg Atorvastatin Calcium (Atorvastatin 40 Mg Tab) 80 mg PO QHS [facility] Last Admin: 11/01/21 21:05 Dose: 80 mg Docusate Sodium (Docusate Sodium 100 Mg Cap) 100 mg PO BID [facility] Last Admin: 11/02/21 13:42 Dose: Not Given Furosemide (Furosemide 20 Mg/2 Ml Inj) 20 mg IV 0600,1800 [facility] Last Admin: 11/02/21 06:29 Dose: 20 mg Hydralazine HCl (Hydralazine 20 Mg/1 Ml Inj) 10 mg IV Q6H PRN PRN Reason: Blood Pressure Hydralazine HCl (Hydralazine 25 Mg Tab) 50 mg PO Q8HR [facility] Last Admin: 11/02/21 13:40 Dose: 50 mg Isosorbide Mononitrate (Isosorbide Mononitrate Er 30 Mg Tab) 30 mg PO QDAY [facility] Last Admin: 11/02/21 13:42 Dose: 30 mg Nifedipine (Nifedipine Xl 60 Mg Tab) 60 mg PO QDAY [facility] Last Admin: 11/02/21 13:00 Dose: 60 mg Nitroglycerin (Nitroglycerin 0.4 Mg Tab Subl) 0.4 mg SL .Q5MIN PRN PRN Reason: Chest Pain Ondansetron HCl (Ondansetron 4 Mg/2 Ml Inj) 4 mg IV Q8H PRN PRN Reason: Nausea And Vomiting Pantoprazole Sodium (Pantoprazole 40 Mg Tab) 40 mg PO QDAC [facility] Last Admin: 11/02/21 13:42 Dose: 40 mg Sodium Chloride (Sodium Chloride 0.9% 10 Ml Flush Syringe) 10 ml IV BID [facility] Last Admin: 11/02/21 13:41 Dose: 10 ml Sodium Chloride (Sodium Chloride 0.9% 10 Ml Flush Syringe) 10 ml IV PRN PRN PRN Reason: LINE FLUSH Ticagrelor (Ticagrelor 90 Mg Tab) 90 mg PO BID [facility] Last Admin: 11/02/21 13:42 Dose: 90 mg Physical Examination Vital Signs Temp Pulse Resp BP Pulse Ox 98.3 F 70 14 126/71 100 11/01/21 02:40 11/01/21 02:40 11/01/21 02:40 11/01/21 02:40 11/01/21 02:40 Narrative exam: Generalno acute distress, well-developed HEENTatraumatic, no scleral icterus CVregular rate and rhythm, no murmurs, no JVD LungsCTAB, no wheezing or crackles Abdomensoft, nontender, nondistended, obese Extremitiesno pedal edema Skinsoft, no rash noted Neuroalert and oriented, no facial droop, no focal deficits Psychaffect appropriate Results 11/02/21 04:17 11/02/21 04:17 CBC 11/02/21 Range/Units 04:17 WBC 9.0 (4.5-11.0) K/mm3 RBC 3.85 (3.65-5.03) M/mm3 Hgb 11.7 (10.1-14.3) gm/dl Hct 36.2 (30.3-42.9) % Plt Count 352 (140-440) K/mm3 Lymph # (Auto) 2.8 (1.2-5.4) K/mm3 Jones # (Auto) 0.4 (0.0-0.8) K/mm3 Eos # (Auto) 0.1 (0.0-0.4) K/mm3 Baso # (Auto) 0.0 (0.0-0.1) K/mm3 Comprehensive Metabolic Panel 11/02/21 Range/Units 04:17 Sodium 136 L (137-145) mmol/L Potassium 4.5 (3.6-5.0) mmol/L Chloride 100.8 (98-107) mmol/L Carbon Dioxide 22 (22-30) mmol/L BUN 19 H (7-17) mg/dL Creatinine 1.1 (0.6-1.2) mg/dL Glucose 103 H (65-100) mg/dL Calcium 9.4 (8.4-10.2) mg/dL 11/01/2021 at 2:42 AM EKGsinus rhythm, anterolateral ST elevations, first-degree AV block Assessment and Plan #Paroxysmal Mobitz 2 and high-grade AV block #CAD and STEMI status post proximal LAD stent 11/01/2021 #Ischemic cardiomyopathy #Hepatitis C #HIV Review of telemetry shows episodes of high-grade AV block and Mobitz 2 AV block. In setting of recent STEMI status post revascularization, AV block may resolve. Would continue to hold beta-ness and other AV philly blocking agents at this time. Check TSH/fT4. We will monitor for recurrence of AV block over the weekend and consider pacem bere implant on Saturday (if needed). Otherwise, if no further AV block is noted, patient would benefit from outpatient event monitor. Thank you for involving us in the care of this patient.
--- NOTE | 2021-11-02 19:49 | Progress Note ---
Assessment and Plan Assessment and plan: 60-year-old female with morbid obesity, HTN, HIV on antiretroviral therapy, hepatitis C, GERD, depression and current tobacco (half a pack per day for 20 years) abuse who presented to the emergency department on 11/01 with complaints of sharp chest pain 10/10 with chest tightness and substernal burning sensation with radiation to left chest associated with shortness of breath, nausea and vomiting. Code STEMI was called when EMS informed charge nurse patient had ST elevation on ECG. EMS administered aspirin and nitroglycerin x2. Upon arrival to emergency department stating was comfortable throughout the ECG and she was taken to [facility] with cardiology where she underwent primary PCI of LAD with deployment of the stent. Post cath, admitted to ICU postop with Aggrastat and nitroglycerin drip. Nitroglycerin drip weaned off and patient started on oral antihypertensives. Cleared to transfer to the floor. COVID PCR negative. Cardio: STEMI, CAD, ischemic cardiomyopathy, h/o HTN -Cardiology consulted, appreciate recommendations -99% occlusion of LAD -S/p PCI to LAD with deployment of stent x1 -Statin - aspirin 81 mg, Brilinta, hydralazine, Procardia -IV Lasix -Echo-borderline LV dilatation, mild to moderate LVH, LVEF 35 to 40%, RVSP 40 mm. -Intraprocedure noted with ischemic cardiomyopathy ejection fraction approximately 40% and anterior wall hypokinesis -Chest x-ray shows no evidence of CHF. -Per cardiology avoid ACEi or ARB due to elevated creatinine presentation High-grade intermittent AV block, Mobitz type II -Intermittent Mobitz type II blocks noted overnight and in today on telemetry -Intermittent pauses up to 6 secondsP waves without QRS complexes Cardiology as well as EP assisting. Beta-ness and AV philly blockers on hold/to be avoided -Electrolytespotassium and magnesium normal. TSH and free T4 normal. May resolved in the setting of STEMI with stent placement If persistent may need a pacemaker -Cardiology recommends close observation in the IMCU Acute Hypoxic Resp. Insufficiency, ongoing tobacco abuse, morbid obesity -Home medications include albuterol -Tobacco cessation education -Supplemental oxygenation as needed -Weaned to room air -Need outpatient follow up with Pulm -At high risk for ROSLYN, needs to be screened if not already done Hep C History of GERD Acute kidney injury -Presented with a BUN/creatinine of 1.5/23 -Resolving, creatinine 1.1 -On IV diuretic with Lasix -Continue to monitor renal function and electrolytes h/o HIV -resume home antiretroviral therapy once obtained Leukocytosis, resolved -Presented with elevated WBC -Resolved -Likely reactive Discussed with the patient and the nursing staff. History Interval history: Patient is alert and oriented. She is eager to go home. Patient reports some paroxysmal nocturnal dyspnea. Denies chest pains or palpitations. Complains some aches in the lower extremities. Telemetry continues to report pauses consisting of none condition of QRS complexes as well as episodes of Mobitz type II AV block since last night. Cardiology currently evaluating. Currently hemodynamically stable. Hospitalist Physical - Constitutional Vitals: Temp Pulse Resp BP Pulse Ox 97.8 F 84 20 144/73 99 11/02/21 15:20 11/02/21 15:20 11/02/21 15:20 11/02/21 15:20 11/02/21 15:20 General appearance: Present: no acute distress, obese - EENT Eyes: Present: PERRL, EOM intact ENT: hearing intact - Neck Neck: Present: supple - Respiratory Respiratory effort: normal Respiratory: bilateral: CTA - Cardiovascular Rhythm: regular - Extremities Extremities: No edema - Abdominal General gastrointestinal: soft, non-tender, other (Obese) - Integumentary Integumentary: Absent: rash - Psychiatric Psychiatric: appropriate mood/affect - Neurologic Neurologic: no focal deficits, moves all extremities HEART Score - HEART Score EKG: Significant ST-depression Age: 45-65 Risk factors: 1-2 risk factors Troponin: Troponin T 2.110 ng/mL (0.00-0.029) H* D 11/02/21 04:17 Troponin: < normal limit - Critical Actions Critical Actions: 4-6 pts:12-16.6% risk of adverse cardiac event. Should be admitted Results - Labs CBC & Chem 7: 11/02/21 04:17 11/02/21 04:17 Labs: Laboratory Last Values WBC 9.0 K/mm3 (4.5-11.0) 11/02/21 04:17 RBC 3.85 M/mm3 (3.65-5.03) 11/02/21 04:17 Hgb 11.7 gm/dl (10.1-14.3) 11/02/21 04:17 Hct 36.2 % (30.3-42.9) 11/02/21 04:17 MCV 94 fl (79-97) 11/02/21 04:17 MCH 30 pg (28-32) 11/02/21 04:17 MCHC 32 % (30-34) 11/02/21 04:17 RDW 15.7 % (13.2-15.2) H 11/02/21 04:17 Plt Count 352 K/mm3 (140-440) 11/02/21 04:17 Lymph % (Auto) 30.9 % (13.4-35.0) 11/02/21 04:17 [place] % (Auto) 4.8 % (0.0-7.3) 11/02/21 04:17 Eos % (Auto) 0.7 % (0.0-4.3) 11/02/21 04:17 Baso % (Auto) 0.4 % (0.0-1.8) 11/02/21 04:17 Lymph # (Auto) 2.8 K/mm3 (1.2-5.4) 11/02/21 04:17 [place] # (Auto) 0.4 K/mm3 (0.0-0.8) 11/02/21 04:17 Eos # (Auto) 0.1 K/mm3 (0.0-0.4) 11/02/21 04:17 Baso # (Auto) 0.0 K/mm3 (0.0-0.1) 11/02/21 04:17 Add Manual Diff Complete 11/01/21 02:53 Total Counted 100 11/01/21 02:53 Seg Neutrophils % 63.2 % (40.0-70.0) 11/02/21 04:17 Seg Neuts % (Manual) 44.0 % (40.0-70.0) 11/01/21 02:53 Band Neutrophils % 0 % 11/01/21 02:53 Lymphocytes % (Manual) 46.0 % (13.4-35.0) H 11/01/21 02:53 Reactive Lymphs % (Man) 0 % 11/01/21 02:53 Monocytes % (Manual) 7.0 % (0.0-7.3) 11/01/21 02:53 Eosinophils % (Manual) 2.0 % (0.0-4.3) 11/01/21 02:53 Basophils % (Manual) 1.0 % (0.0-1.8) 11/01/21 02:53 Metamyelocytes % 0 % 11/01/21 02:53 Myelocytes % 0 % 11/01/21 02:53 Promyelocytes % 0 % 11/01/21 02:53 Blast Cells % 0 % 11/01/21 02:53 Nucleated RBC % Not Reportable 11/01/21 02:53 Seg Neutrophils # 5.7 K/mm3 (1.8-7.7) 11/02/21 04:17 Seg Neutrophils # Man 7.8 K/mm3 (1.8-7.7) H 11/01/21 02:53 Band Neutrophils # 0.0 K/mm3 11/01/21 02:53 Lymphocytes # (Manual) 8.1 K/mm3 (1.2-5.4) H 11/01/21 02:53 Abs React Lymphs (Man) 0.0 K/mm3 11/01/21 02:53 Monocytes # (Manual) 1.2 K/mm3 (0.0-0.8) H 11/01/21 02:53 Eosinophils # (Manual) 0.4 K/mm3 (0.0-0.4) 11/01/21 02:53 Basophils # (Manual) 0.2 K/mm3 (0.0-0.1) H 11/01/21 02:53 Metamyelocytes # 0.0 K/mm3 11/01/21 02:53 Myelocytes # 0.0 K/mm3 11/01/21 02:53 Promyelocytes # 0.0 K/mm3 11/01/21 02:53 Blast Cells # 0.0 K/mm3 11/01/21 02:53 WBC Morphology Not Reportable 11/01/21 02:53 Hypersegmented Neuts Not Reportable 11/01/21 02:53 Hyposegmented Neuts Not Reportable 11/01/21 02:53 Hypogranular Neuts Not Reportable 11/01/21 02:53 Smudge Cells Not Reportable 11/01/21 02:53 Toxic Granulation Not Reportable 11/01/21 02:53 Toxic Vacuolation Not Reportable 11/01/21 02:53 Dohle Bodies Not Reportable 11/01/21 02:53 Pelger-Huet Anomaly Not Reportable 11/01/21 02:53 Jones Rods Not Reportable 11/01/21 02:53 Platelet Estimate Not Reportable 11/01/21 02:53 Clumped Platelets Not Reportable 11/01/21 02:53 Plt Clumps, EDTA Not Reportable 11/01/21 02:53 Large Platelets Not Reportable 11/01/21 02:53 Giant Platelets Not Reportable 11/01/21 02:53 Platelet Satelliting Not Reportable 11/01/21 02:53 Plt Morphology Comment Not Reportable 11/01/21 02:53 RBC Morphology Normal 11/01/21 02:53 Dimorphic RBCs Not Reportable 11/01/21 02:53 Polychromasia Not Reportable 11/01/21 02:53 Hypochromasia Not Reportable 11/01/21 02:53 Poikilocytosis Not Reportable 11/01/21 02:53 Anisocytosis Not Reportable 11/01/21 02:53 Microcytosis Not Reportable 11/01/21 02:53 Macrocytosis Not Reportable 11/01/21 02:53 Spherocytes Not Reportable 11/01/21 02:53 Pappenheimer Bodies Not Reportable 11/01/21 02:53 Sickle Cells Not Reportable 11/01/21 02:53 Target Cells Not Reportable 11/01/21 02:53 Tear Drop Cells Not Reportable 11/01/21 02:53 Ovalocytes Not Reportable 11/01/21 02:53 Helmet Cells Not Reportable 11/01/21 02:53 [place]aino[place] Bodies Not Reportable 11/01/21 02:53 [place] Rings Not Reportable 11/01/21 02:53 [place] Cells Not Reportable 11/01/21 02:53 Bite Cells Not Reportable 11/01/21 02:53 Crenated Cell Not Reportable 11/01/21 02:53 Elliptocytes Not Reportable 11/01/21 02:53 Acanthocytes (Spur) Not Reportable 11/01/21 02:53 Rouleaux Not Reportable 11/01/21 02:53 Hemoglobin C Crystals Not Reportable 11/01/21 02:53 Schistocytes Not Reportable 11/01/21 02:53 Malaria parasites Not Reportable 11/01/21 02:53 Tong Bodies Not Reportable 11/01/21 02:53 Hem Pathologist Commnt No 11/01/21 02:53 PT 13.3 Sec. (12.2-14.9) 11/01/21 02:53 INR 0.91 (0.87-1.13) 11/01/21 02:53 APTT 31.1 Sec. (24.2-36.6) 11/01/21 02:53 Sodium 136 mmol/L (137-145) L 11/02/21 04:17 Potassium 4.5 mmol/L (3.6-5.0) 11/02/21 04:17 Chloride 100.8 mmol/L (98-107) 11/02/21 04:17 Carbon Dioxide 22 mmol/L (22-30) 11/02/21 04:17 Anion Gap 18 mmol/L 11/02/21 04:17 BUN 19 mg/dL (7-17) H 11/02/21 04:17 Creatinine 1.1 mg/dL (0.6-1.2) 11/02/21 04:17 Estimated GFR > 60 ml/min 11/02/21 04:17 BUN/Creatinine Ratio 17 % 11/02/21 04:17 Glucose 103 mg/dL (65-100) H 11/02/21 04:17 Calcium 9.4 mg/dL (8.4-10.2) 11/02/21 04:17 Phosphorus 4.10 mg/dL (2.5-4.5) 11/01/21 13:55 Magnesium 1.80 mg/dL (1.7-2.3) 11/02/21 16:01 Total Bilirubin < 0.20 mg/dL (0.1-1.2) 11/01/21 02:53 AST 12 units/L (5-40) 11/01/21 02:53 ALT 11 units/L (7-56) 11/01/21 02:53 Alkaline Phosphatase 199 units/L (35-129) H 11/01/21 02:53 Troponin T 2.110 ng/mL (0.00-0.029) H* D 11/02/21 04:17 Total Protein 7.3 g/dL (6.3-8.2) 11/01/21 02:53 Albumin 3.5 g/dL (3.9-5) L 11/01/21 02:53 Albumin/Globulin Ratio 0.9 % 11/01/21 02:53 Triglycerides 266 mg/dL (2-149) H 11/01/21 05:29 Cholesterol 103 mg/dL (50-199) 11/01/21 05:29 LDL Cholesterol Direct 48 mg/dL (50-130) L 11/01/21 05:29 HDL Cholesterol 54 mg/dL (40-59) 11/01/21 05:29 Cholesterol/HDL Ratio 1.90 % 11/01/21 05:29 TSH 3.450 mlU/mL (0.270-4.200) 11/02/21 16:01 Free T4 1.15 ng/dL (0.76-1.46) 11/02/21 16:01 Coronavirus (PCR) Negative (Negative) 11/01/21 Unknown Blood Type B POSITIVE 11/01/21 02:53 Antibody Screen Negative 11/01/21 02:53 Active Medications - Current Medications Current Medications: Generic Name Dose Route Start Last Admin Trade Name Freq PRN Reason Stop Dose Admin Acetaminophen 650 mg 11/01/21 03:07 Acetaminophen 325 Mg Tab PO Q4H PRN Pain MILD(1-3)/Fever >100.5/[place] Hydrocodone Bitart/Acetaminophen 1 each 11/01/21 04:23 11/02/21 17:36 Hydrocodone/Acetaminophen 5-325 Mg Tab PO 1 each Q6H PRN Administration Pain, Moderate (4-6) Albuterol 2.5 mg 11/01/21 03:07 Albuterol 2.5 Mg/3 Ml Nebu IH Q4HRT PRN Shortness Of Breath Aspirin 81 mg 11/01/21 10:00 11/02/21 13:40 Aspirin 81 Mg Tab Chew PO 81 mg QDAY SIMBA Administration Atorvastatin Calcium 80 mg 11/01/21 22:00 11/01/21 21:05 Atorvastatin 40 Mg Tab PO 80 mg QHS SIMBA Administration Docusate Sodium 100 mg 11/01/21 22:00 11/02/21 13:42 Docusate Sodium 100 Mg Cap PO Not Given BID SIMBA Furosemide 20 mg 11/01/21 06:00 11/02/21 17:32 Furosemide 20 Mg/2 Ml Inj IV 20 mg 0600,1800 SIMBA Administration Hydralazine HCl 10 mg 11/01/21 03:20 Hydralazine 20 Mg/1 Ml Inj IV Q6H PRN Blood Pressure Hydralazine HCl 50 mg 11/01/21 11:00 11/02/21 13:40 Hydralazine 25 Mg Tab PO 50 mg Q8HR SIMBA Administration Isosorbide Mononitrate 30 mg 11/01/21 11:00 11/02/21 13:42 Isosorbide Mononitrate Er 30 Mg Tab PO 30 mg QDAY SIMBA Administration Nifedipine 60 mg 11/01/21 11:00 11/02/21 13:00 Nifedipine Xl 60 Mg Tab PO 60 mg QDAY SIMBA Administration Nitroglycerin 0.4 mg 11/01/21 03:07 Nitroglycerin 0.4 Mg Tab Subl SL .Q5MIN PRN Chest Pain Ondansetron HCl 4 mg 11/01/21 03:07 Ondansetron 4 Mg/2 Ml Inj IV Q8H PRN Nausea And Vomiting Pantoprazole Sodium 40 mg 11/01/21 07:30 11/02/21 13:42 Pantoprazole 40 Mg Tab PO 40 mg QDAC SIMBA Administration Sodium Chloride 10 ml 11/01/21 10:00 11/02/21 13:41 Sodium Chloride 0.9% 10 Ml Flush Syringe IV 10 ml BID SIMBA Administration Sodium Chloride 10 ml 11/01/21 03:07 Sodium Chloride 0.9% 10 Ml Flush Syringe IV PRN PRN LINE FLUSH Ticagrelor 90 mg 11/01/21 22:00 11/02/21 13:42 Ticagrelor 90 Mg Tab PO 90 mg BID SIMBA Administration
[2021-11-02] MEDS ORDERED: MAGNESIUM SULFATE 2 GM/50 ML BAG IV ONE (20:25)
[2021-11-03] MEDS: ACETAMINOPHEN 325 MG TAB PO PRN (03:04)
[2021-11-03] MEDS: HYDROcodone/ACETAMINOPHEN 5-325 MG TAB PO PRN ×3 (05:12→19:19)
[2021-11-03] MEDS: FUROSEMIDE 20 MG/2 ML INJ IV SCH ×2 (05:13→17:46)
[2021-11-03] MEDS: hydrALAZINE 25 MG TAB PO SCH ×3 (05:13→21:00)
[2021-11-03 06:08] LABS: Basophils % (Auto) 0.4 % (0.0-1.8); Eosinophils # (Auto) 0.1 K/mm3 (0.0-0.4); Eosinophils % (Auto) 0.8 % (0.0-4.3); Hematocrit 35.6 % (30.3-42.9); Hemoglobin 11.6 gm/dl (10.1-14.3); Lymphocytes # (Auto) 3.4 K/mm3 (1.2-5.4); Lymphocytes % (Auto) 37.7 % (13.4-35.0); Mean Corpuscular HGB Conc 33 % (30-34); Mean Corpuscular Volume 95 fl (79-97); Monocytes # (Auto) 0.6 K/mm3 (0.0-0.8); Monocytes % (Auto) 6.3 % (0.0-7.3); Platelet Count 366 K/mm3 (140-440); Red Blood Count 3.77 M/mm3 (3.65-5.03); Red Cell Distribution Width 15.6 % (13.2-15.2)
[2021-11-03 06:19] LABS: Albumin 3.4 g/dL (3.9-5); Calcium 9.3 mg/dL (8.4-10.2)
[2021-11-03] MEDS: DOCUSATE SODIUM 100 MG CAP PO SCH ×2 (09:29→21:01)
[2021-11-03] MEDS: TICAGRELOR 90 MG TAB PO SCH ×2 (09:29→21:01)
[2021-11-03] MEDS: ASPIRIN 81 MG TAB CHEW PO SCH (09:29)
[2021-11-03] MEDS: PANTOPRAZOLE 40 MG TAB PO SCH (09:29)
[2021-11-03] MEDS: NIFEdipine XL 60 MG TAB PO SCH (09:29)
--- NOTE | 2021-11-03 11:07 | Electrocardiograph Report ---
[facility] Test Date: 2021-11-02 Test Time: 14:53:48 Pat Name: BEKA BELLO Department: Room: A264 Gender: F Medical I D Sales: JOVAN : 1960 Requested By: BRI WHITE Order Number: [id number] Reading MD: Brody Vizcaino Measurements Intervals [place] Rate: 77 P: -18 TX: 159 QRS: 8 QRSD: 103 T: 92 QT: 491 QTc: 556 Interpretive Statements Sinus rhythm Left ventricular hypertrophy Abnrm T, probable ischemia, anterolateral lds Prolonged QT interval Compared to ECG 11/01/2021 10:09:11 Prolonged QT interval now present Changes of evolving anterior infarct noted. Electronically Signed On 11-03-2021 11:07:18 EST by Brody Vizcaino
--- NOTE | 2021-11-03 14:07 | Progress Note ---
Assessment and Plan - Patient Problems (1) Acute anterolateral myocardial infarction Current Visit: No Status: Inactive Plan to address problem: Status post primary PCI of the mid LAD. LV systolic function was mildly to moderately impaired on LV angiography. Patient is on guideline directed medical therapy. Beta-blockers on hold due to the patient's development of bradycardia and heart block. (2) Bradycardia Current Visit: Yes Status: Acute Plan to address problem: Patient demonstrates intermittent AV block with P waves and no AV conduction. We have metoprolol, and the patient is transferred to the CCU stepdown for close monitoring. Over the next 48 hours, we will determine further management including possible pacemaker therapy if bradycardia and heart block persists. Subjective Date of service: 11/03/21 Principal diagnosis: Acute myocardial infarction Interval history: The patient was transferred to the stepdown unit for further close monitoring of intermittent heart block. Currently she is in a stable sinus rhythm with one-t o-one conduction heart rate 84. Objective Vital Signs Temp Pulse Pulse Resp BP Pulse Ox 11/03/21 13:39 100 H 111/87 11/03/21 12:00 98.1 F 11/03/21 09:30 99 11/03/21 09:29 108 H 132/54 11/03/21 08:00 98.1 F 88 75 18 98 11/03/21 05:13 90 126/69 11/03/21 04:00 71 15 99 11/03/21 00:00 99 11/02/21 22:59 99.9 F H 84 16 103/57 99 11/02/21 21:00 84 103/57 11/02/21 20:10 98.9 F 82 16 105/64 99 11/02/21 16:00 100 11/02/21 15:20 97.8 F 84 20 144/73 99 - Physical Examination General: No Apparent Distress HEENT: Positive: Normocephaly Neck: Positive: neck supple Cardiac: Positive: Reg Rate and Rhythm Lungs: Positive: clear to auscultation Neuro: Positive: Grossly Intact Abdomen: Positive: Soft Skin: Positive: Clear Extremities: Absent: edema - Labs and Meds Cardiac Enzymes 11/03/21 Range/Units 05:08 AST 32 (5-40) units/L CBC 11/03/21 Range/Units 05:08 WBC 9.1 (4.5-11.0) K/mm3 RBC 3.77 (3.65-5.03) M/mm3 Hgb 11.6 (10.1-14.3) gm/dl Hct 35.6 (30.3-42.9) % Plt Count 366 (140-440) K/mm3 Lymph # (Auto) 3.4 (1.2-5.4) K/mm3 [place] # (Auto) 0.6 (0.0-0.8) K/mm3 Eos # (Auto) 0.1 (0.0-0.4) K/mm3 Baso # (Auto) 0.0 (0.0-0.1) K/mm3 Comprehensive Metabolic Panel 11/03/21 Range/Units 05:08 Sodium 138 (137-145) mmol/L Potassium 4.4 (3.6-5.0) mmol/L Chloride 101.6 (98-107) mmol/L Carbon Dioxide 22 (22-30) mmol/L BUN 30 H (7-17) mg/dL Creatinine 1.6 H (0.6-1.2) mg/dL Glucose 101 H (65-100) mg/dL Calcium 9.3 (8.4-10.2) mg/dL AST 32 (5-40) units/L ALT 17 (7-56) units/L Alkaline Phosphatase 197 H (35-129) units/L Total Protein 7.7 (6.3-8.2) g/dL Albumin 3.4 L (3.9-5) g/dL
--- NOTE | 2021-11-03 14:13 | Progress Note ---
Assessment and Plan Assessment and plan: Assessment and plan: 60-year-old female with morbid obesity, HTN, HIV on antiretroviral therapy, hepatitis C, GERD, depression and current tobacco (half a pack per day for 20 ye ars) abuse who presented to the emergency department on 11/01 with complaints of sharp chest pain 10/10 with chest tightness and substernal burning sensation with radiation to left chest associated with shortness of breath, nausea and vomiting. Code STEMI was called when EMS informed charge nurse patient had ST elevation on ECG. EMS administered aspirin and nitroglycerin x2. Upon arrival to emergency department stating was comfortable throughout the ECG and she was taken to [facility] with cardiology where she underwent primary PCI of LAD with deployment of the stent. Post cath, admitted to ICU postop with Aggrastat and nitroglycerin drip. Nitroglycerin drip weaned off and patient started on oral antihypertensives. Cleared to transfer to the floor. COVID PCR negative. Hospital Course 11/03/2021: D/w patient that she will be observed in ICU overweekend. Patient had recent of sister and would like to leave but I recommended against this. She was advised that if she wanted to leave she would have to leave AMA. Avoid philly blockers. will follow with cardiology for further recs. Potential PPM placement on saturday. D/w pharmacy, anti-retrovirals for HIV resumed. Assessment and Plan Cardio: STEMI, CAD, ischemic cardiomyopathy, h/o HTN -Cardiology consulted, appreciate recommendations -99% occlusion of LAD -S/p PCI to LAD with deployment of stent x1 -Statin - aspirin 81 mg, Brilinta, hydralazine, Procardia -IV Lasix -Echo-borderline LV dilatation, mild to moderate LVH, LVEF 35 to 40%, RVSP 40 mm. -Intraprocedure noted with ischemic cardiomyopathy ejection fraction approximately 40% and anterior wall hypokinesis -Chest x-ray shows no evidence of CHF. -Per cardiology avoid ACEi or ARB due to elevated creatinine presentation High-grade intermittent AV block, Mobitz type II -Intermittent Mobitz type II blocks noted overnight and in today on telemetry -Intermittent pauses up to 6 secondsP waves without QRS complexes Cardiology as well as EP assisting. Beta-ness and AV philly blockers on hold/to be avoided -Electrolytespotassium and magnesium normal. TSH and free T4 normal. May resolved in the setting of STEMI with stent placement If persistent may need a pacemaker -Cardiology recommends close observation in the IMCU Acute Hypoxic Resp. Insufficiency, ongoing tobacco abuse, morbid obesity -Home medications include albuterol -Tobacco cessation education -Supplemental oxygenation as needed -Weaned to room air -Need outpatient follow up with Pulm -At high risk for ROSLYN, needs to be screened if not already done Hep C History of GERD Acute kidney injury -Presented with a BUN/creatinine of 1.5/23 -Resolving, creatinine 1.1 -On IV diuretic with Lasix -Continue to monitor renal function and electrolytes h/o HIV -d/w pharmacy, ok to resume home antiretroviral therapy once obtained Leukocytosis, resolved -Presented with elevated WBC -Resolved -Likely reactive Discussed with the patient and the nursing staff. History Interval history: Doing well on encounter. Pulse rate was in 80's. rhythm is NSR on tele. No further episodes of pauses on my brief telemetry review. Hospitalist Physical - Physical exam Narrative exam: General appearance: Present: no acute distress, obese - EENT Eyes: Present: PERRL, EOM intact ENT: hearing intact - Neck Neck: Present: supple - Respiratory Respiratory effort: normal Respiratory: bilateral: CTA - Cardiovascular Rhythm: regular - Extremities Extremities: No edema - Abdominal General gastrointestinal: soft, non-tender, other (Obese) - Integumentary Integumentary: Absent: rash - Psychiatric Psychiatric: appropriate mood/affect - Neurologic Neurologic: no focal deficits, moves all extremities - Constitutional Vitals: Temp Pulse Resp BP Pulse Ox 98.1 F 100 H 18 111/87 99 11/03/21 12:00 11/03/21 13:39 11/03/21 08:00 11/03/21 13:39 11/03/21 09:30 General appearance: Present: no acute distress, obese HEART Score - HEART Score EKG: Significant ST-depression Age: 45-65 Risk factors: 1-2 risk factors Troponin: Troponin T 2.110 ng/mL (0.00-0.029) H* D 11/02/21 04:17 Troponin: < normal limit - Critical Actions Critical Actions: 4-6 pts:12-16.6% risk of adverse cardiac event. Should be admitted Results - Labs CBC & Chem 7: 11/03/21 05:08 11/03/21 05:08 Labs: Laboratory Last Values WBC 9.1 K/mm3 (4.5-11.0) 11/03/21 05:08 RBC 3.77 M/mm3 (3.65-5.03) 11/03/21 05:08 Hgb 11.6 gm/dl (10.1-14.3) 11/03/21 05:08 Hct 35.6 % (30.3-42.9) 11/03/21 05:08 MCV 95 fl (79-97) 11/03/21 05:08 MCH 31 pg (28-32) 11/03/21 05:08 MCHC 33 % (30-34) 11/03/21 05:08 RDW 15.6 % (13.2-15.2) H 11/03/21 05:08 Plt Count 366 K/mm3 (140-440) 11/03/21 05:08 Lymph % (Auto) 37.7 % (13.4-35.0) H 11/03/21 05:08 [place] % (Auto) 6.3 % (0.0-7.3) 11/03/21 05:08 Eos % (Auto) 0.8 % (0.0-4.3) 11/03/21 05:08 Baso % (Auto) 0.4 % (0.0-1.8) 11/03/21 05:08 Lymph # (Auto) 3.4 K/mm3 (1.2-5.4) 11/03/21 05:08 [place] # (Auto) 0.6 K/mm3 (0.0-0.8) 11/03/21 05:08 Eos # (Auto) 0.1 K/mm3 (0.0-0.4) 11/03/21 05:08 Baso # (Auto) 0.0 K/mm3 (0.0-0.1) 11/03/21 05:08 Add Manual Diff Complete 11/01/21 02:53 Total Counted 100 11/01/21 02:53 Seg Neutrophils % 54.8 % (40.0-70.0) 11/03/21 05:08 Seg Neuts % (Manual) 44.0 % (40.0-70.0) 11/01/21 02:53 Band Neutrophils % 0 % 11/01/21 02:53 Lymphocytes % (Manual) 46.0 % (13.4-35.0) H 11/01/21 02:53 Reactive Lymphs % (Man) 0 % 11/01/21 02:53 Monocytes % (Manual) 7.0 % (0.0-7.3) 11/01/21 02:53 Eosinophils % (Manual) 2.0 % (0.0-4.3) 11/01/21 02:53 Basophils % (Manual) 1.0 % (0.0-1.8) 11/01/21 02:53 Metamyelocytes % 0 % 11/01/21 02:53 Myelocytes % 0 % 11/01/21 02:53 Promyelocytes % 0 % 11/01/21 02:53 Blast Cells % 0 % 11/01/21 02:53 Nucleated RBC % Not Reportable 11/01/21 02:53 Seg Neutrophils # 5.0 K/mm3 (1.8-7.7) 11/03/21 05:08 Seg Neutrophils # Man 7.8 K/mm3 (1.8-7.7) H 11/01/21 02:53 Band Neutrophils # 0.0 K/mm3 11/01/21 02:53 Lymphocytes # (Manual) 8.1 K/mm3 (1.2-5.4) H 11/01/21 02:53 Abs React Lymphs (Man) 0.0 K/mm3 11/01/21 02:53 Monocytes # (Manual) 1.2 K/mm3 (0.0-0.8) H 11/01/21 02:53 Eosinophils # (Manual) 0.4 K/mm3 (0.0-0.4) 11/01/21 02:53 Basophils # (Manual) 0.2 K/mm3 (0.0-0.1) H 11/01/21 02:53 Metamyelocytes # 0.0 K/mm3 11/01/21 02:53 Myelocytes # 0.0 K/mm3 11/01/21 02:53 Promyelocytes # 0.0 K/mm3 11/01/21 02:53 Blast Cells # 0.0 K/mm3 11/01/21 02:53 WBC Morphology Not Reportable 11/01/21 02:53 Hypersegmented Neuts Not Reportable 11/01/21 02:53 Hyposegmented Neuts Not Reportable 11/01/21 02:53 Hypogranular Neuts Not Reportable 11/01/21 02:53 Smudge Cells Not Reportable 11/01/21 02:53 Toxic Granulation Not Reportable 11/01/21 02:53 Toxic Vacuolation Not Reportable 11/01/21 02:53 Dohle Bodies Not Reportable 11/01/21 02:53 Pelger-Huet Anomaly Not Reportable 11/01/21 02:53 Jones Rods Not Reportable 11/01/21 02:53 Platelet Estimate Not Reportable 11/01/21 02:53 Clumped Platelets Not Reportable 11/01/21 02:53 Plt Clumps, EDTA Not Reportable 11/01/21 02:53 Large Platelets Not Reportable 11/01/21 02:53 Giant Platelets Not Reportable 11/01/21 02:53 Platelet Satelliting Not Reportable 11/01/21 02:53 Plt Morphology Comment Not Reportable 11/01/21 02:53 RBC Morphology Normal 11/01/21 02:53 Dimorphic RBCs Not Reportable 11/01/21 02:53 Polychromasia Not Reportable 11/01/21 02:53 Hypochromasia Not Reportable 11/01/21 02:53 Poikilocytosis Not Reportable 11/01/21 02:53 Anisocytosis Not Reportable 11/01/21 02:53 Microcytosis Not Reportable 11/01/21 02:53 Macrocytosis Not Reportable 11/01/21 02:53 Spherocytes Not Reportable 11/01/21 02:53 Pappenheimer Bodies Not Reportable 11/01/21 02:53 Sickle Cells Not Reportable 11/01/21 02:53 Target Cells Not Reportable 11/01/21 02:53 Tear Drop Cells Not Reportable 11/01/21 02:53 Ovalocytes Not Reportable 11/01/21 02:53 Helmet Cells Not Reportable 11/01/21 02:53 [place] Bodies Not Reportable 11/01/21 02:53 [place] Rings Not Reportable 11/01/21 02:53 [place] Cells Not Reportable 11/01/21 02:53 Bite Cells Not Reportable 11/01/21 02:53 Crenated Cell Not Reportable 11/01/21 02:53 Elliptocytes Not Reportable 11/01/21 02:53 Acanthocytes (Spur) Not Reportable 11/01/21 02:53 Rouleaux Not Reportable 11/01/21 02:53 Hemoglobin C Crystals Not Reportable 11/01/21 02:53 Schistocytes Not Reportable 11/01/21 02:53 Malaria parasites Not Reportable 11/01/21 02:53 Tong Bodies Not Reportable 11/01/21 02:53 Hem Pathologist Commnt No 11/01/21 02:53 PT 13.3 Sec. (12.2-14.9) 11/01/21 02:53 INR 0.91 (0.87-1.13) 11/01/21 02:53 APTT 31.1 Sec. (24.2-36.6) 11/01/21 02:53 Sodium 138 mmol/L (137-145) 11/03/21 05:08 Potassium 4.4 mmol/L (3.6-5.0) 11/03/21 05:08 Chloride 101.6 mmol/L (98-107) 11/03/21 05:08 Carbon Dioxide 22 mmol/L (22-30) 11/03/21 05:08 Anion Gap 19 mmol/L 11/03/21 05:08 BUN 30 mg/dL (7-17) H 11/03/21 05:08 Creatinine 1.6 mg/dL (0.6-1.2) H 11/03/21 05:08 Estimated GFR 40 ml/min 11/03/21 05:08 BUN/Creatinine Ratio 19 % 11/03/21 05:08 Glucose 101 mg/dL (65-100) H 11/03/21 05:08 Calcium 9.3 mg/dL (8.4-10.2) 11/03/21 05:08 Phosphorus 4.10 mg/dL (2.5-4.5) 11/01/21 13:55 Magnesium 2.40 mg/dL (1.7-2.3) H 11/03/21 05:08 Total Bilirubin 0.30 mg/dL (0.1-1.2) 11/03/21 05:08 AST 32 units/L (5-40) 11/03/21 05:08 ALT 17 units/L (7-56) 11/03/21 05:08 Alkaline Phosphatase 197 units/L (35-129) H 11/03/21 05:08 Troponin T 2.110 ng/mL (0.00-0.029) H* D 11/02/21 04:17 Total Protein 7.7 g/dL (6.3-8.2) 11/03/21 05:08 Albumin 3.4 g/dL (3.9-5) L 11/03/21 05:08 Albumin/Globulin Ratio 0.8 % 11/03/21 05:08 Triglycerides 266 mg/dL (2-149) H 11/01/21 05:29 Cholesterol 103 mg/dL (50-199) 11/01/21 05:29 LDL Cholesterol Direct 48 mg/dL (50-130) L 11/01/21 05:29 HDL Cholesterol 54 mg/dL (40-59) 11/01/21 05:29 Cholesterol/HDL Ratio 1.90 % 11/01/21 05:29 TSH 3.450 mlU/mL (0.270-4.200) 11/02/21 16:01 Free T4 1.15 ng/dL (0.76-1.46) 11/02/21 16:01 Coronavirus (PCR) Negative (Negative) 11/01/21 Unknown Blood Type B POSITIVE 11/01/21 02:53 Antibody Screen Negative 11/01/21 02:53 Active Medications - Current Medications Current Medications: Generic Name Dose Route Start Last Admin Trade Name Freq PRN Reason Stop Dose Admin Acetaminophen 650 mg 11/01/21 03:07 11/03/21 03:04 Acetaminophen 325 Mg Tab PO 650 mg Q4H PRN Administration Pain MILD(1-3)/Fever >100.5/[place] Hydrocodone Bitart/Acetaminophen 1 each 11/01/21 04:23 11/03/21 12:09 Hydrocodone/Acetaminophen 5-325 Mg Tab PO 1 each Q6H PRN Administration Pain, Moderate (4-6) Albuterol 2.5 mg 11/01/21 03:07 Albuterol 2.5 Mg/3 Ml Nebu IH Q4HRT PRN Shortness Of Breath Aspirin 81 mg 11/01/21 10:00 11/03/21 09:29 Aspirin 81 Mg Tab Chew PO 81 mg QDAY SIMBA Administration Atorvastatin Calcium 80 mg 11/01/21 22:00 11/02/21 21:00 Atorvastatin 40 Mg Tab PO 80 mg QHS SIMBA Administration Docusate Sodium 100 mg 11/01/21 22:00 11/03/21 09:29 Docusate Sodium 100 Mg Cap PO 100 mg BID SIMBA Administration Furosemide 20 mg 11/01/21 06:00 11/03/21 05:13 Furosemide 20 Mg/2 Ml Inj IV 20 mg 0600,1800 SIMBA Administration Hydralazine HCl 10 mg 11/01/21 03:20 Hydralazine 20 Mg/1 Ml Inj IV Q6H PRN Blood Pressure Hydralazine HCl 50 mg 11/01/21 11:00 11/03/21 13:39 Hydralazine 25 Mg Tab PO 50 mg Q8HR SIMBA Administration Isosorbide Mononitrate 30 mg 11/01/21 11:00 11/03/21 09:29 Isosorbide Mononitrate Er 30 Mg Tab PO 30 mg QDAY SIMBA Administration Nifedipine 60 mg 11/01/21 11:00 11/03/21 09:29 Nifedipine Xl 60 Mg Tab PO 60 mg QDAY SIMBA Administration Nitroglycerin 0.4 mg 11/01/21 03:07 Nitroglycerin 0.4 Mg Tab Subl SL .Q5MIN PRN Chest Pain Ondansetron HCl 4 mg 11/01/21 03:07 Ondansetron 4 Mg/2 Ml Inj IV Q8H PRN Nausea And Vomiting Pantoprazole Sodium 40 mg 11/01/21 07:30 11/03/21 09:29 Pantoprazole 40 Mg Tab PO 40 mg QDAC SIMBA Administration Sodium Chloride 10 ml 11/01/21 10:00 11/03/21 09:30 Sodium Chloride 0.9% 10 Ml Flush Syringe IV 10 ml BID SIMBA Administration Sodium Chloride 10 ml 11/01/21 03:07 Sodium Chloride 0.9% 10 Ml Flush Syringe IV PRN PRN LINE FLUSH Ticagrelor 90 mg 11/01/21 22:00 11/03/21 09:29 Ticagrelor 90 Mg Tab PO 90 mg BID SIMBA Administration Zolpidem Tartrate 5 mg 11/02/21 22:41 Zolpidem 5 Mg Tab PO QHS PRN Sleep
[2021-11-03] MEDS: ZOLPIDEM 5 MG TAB PO PRN (23:11)
[2021-11-04] MEDS: HYDROcodone/ACETAMINOPHEN 5-325 MG TAB PO PRN ×3 (02:17→20:08)
[2021-11-04] MEDS: ACETAMINOPHEN 325 MG TAB PO PRN (06:10)
[2021-11-04] MEDS: FUROSEMIDE 20 MG/2 ML INJ IV SCH (06:10)
[2021-11-04] MEDS: hydrALAZINE 25 MG TAB PO SCH ×3 (06:10→21:09)
--- NOTE | 2021-11-04 09:09 | Progress Note ---
Assessment and Plan Assessment and plan: Assessment and plan: 60-year-old female with morbid obesity, HTN, HIV on antiretroviral therapy, hepatitis C, GERD, depression and current tobacco (half a pack per day for 20 ye ars) abuse who presented to the emergency department on 11/01 with complaints of sharp chest pain 10/10 with chest tightness and substernal burning sensation with radiation to left chest associated with shortness of breath, nausea and vomiting. Code STEMI was called when EMS informed charge nurse patient had ST elevation on ECG. EMS administered aspirin and nitroglycerin x2. Upon arrival to emergency department stating was comfortable throughout the ECG and she was taken to [facility] with cardiology where she underwent primary PCI of LAD with deployment of the stent. Post cath, admitted to ICU postop with Aggrastat and nitroglycerin drip. Nitroglycerin drip weaned off and patient started on oral antihypertensives. Cleared to transfer to the floor. COVID PCR negative. Hospital Course 11/03/2021: D/w patient that she will be observed in ICU overweekend. Patient had recent of sister and would like to leave but I recommended against this. She was advised that if she wanted to leave she would have to leave AMA. Avoid philly blockers. will follow with cardiology for further recs. Potential PPM placement on saturday. D/w pharmacy, anti-retrovirals for HIV resumed. 11/04/2021: Episodes of NSVT off BB per cardiology. Plan for PPM on saturday. Will remain in IMCU Assessment and Plan Cardio: STEMI, CAD, ischemic cardiomyopathy, h/o HTN -Cardiology consulted, appreciate recommendations -99% occlusion of LAD -S/p PCI to LAD with deployment of stent x1 -Statin - aspirin 81 mg, Brilinta, hydralazine, Procardia -IV Lasix -Echo-borderline LV dilatation, mild to moderate LVH, LVEF 35 to 40%, RVSP 40 mm. -Intraprocedure noted with ischemic cardiomyopathy ejection fraction approximate ly 40% and anterior wall hypokinesis -Chest x-ray shows no evidence of CHF. -Per cardiology avoid ACEi or ARB due to elevated creatinine presentation - holding BB at this time. High-grade intermittent AV block, Mobitz type II -Intermittent Mobitz type II blocks noted overnight and in today on telemetry -Intermittent pauses up to 6 secondsP waves without QRS complexes Cardiology as well as EP assisting. Beta-ness and AV philly blockers on hold/to be avoided -Electrolytespotassium and magnesium normal. TSH and free T4 normal. May resolved in the setting of STEMI with stent placement -Cardiology recommends close observation in the IMCU - plan for ppm saturday Acute Hypoxic Resp. Insufficiency, ongoing tobacco abuse, morbid obesity -Home medications include albuterol -Tobacco cessation education -Supplemental oxygenation as needed -Weaned to room air -Need outpatient follow up with Pulm -At high risk for ROSLYN, needs to be screened if not already done Hep C History of GERD Acute kidney injury -Presented with a BUN/creatinine of 1.5/ -Resolving, creatinine 1.1 -On IV diuretic with Lasix -Continue to monitor renal function and electrolytes h/o HIV -d/w pharmacy, ok to resume home antiretroviral therapy once obtained Leukocytosis, resolved -Presented with elevated WBC -Resolved -Likely reactive The high probability of a clinically significant, sudden or life threatening deterioration of the [cardiac] system(s) required my full and direct attention, intervention and personal management. The aggregate critical care time was [60] minutes. This time is in addition to time spent performing reported procedures but includes the following: [x] Data Review and interpretation [x] Patient assessment and monitoring of vital signs [x] Documentation [x] Medication orders and management History Interval history: Doing well on encounter. Pulse rate was in 80's. rhythm is NSR on tele. Hospitalist Physical - Physical exam Narrative exam: General appearance: Present: no acute distress, obese - EENT Eyes: Present: PERRL, EOM intact ENT: hearing intact - Neck Neck: Present: supple - Respiratory Respiratory effort: normal Respiratory: bilateral: CTA - Cardiovascular Rhythm: regular - Extremities Extremities: No edema - Abdominal General gastrointestinal: soft, non-tender, other (Obese) - Integumentary Integumentary: Absent: rash - Psychiatric Psychiatric: appropriate mood/affect - Neurologic Neurologic: no focal deficits, moves all extremities - Constitutional Vitals: Temp Pulse Resp BP Pulse Ox 97.6 F 85 18 118/66 95 11/04/21 00:00 11/04/21 06:10 11/04/21 04:00 11/04/21 06:10 11/04/21 07:58 General appearance: Present: no acute distress, obese HEART Score - HEART Score EKG: Significant ST-depression Age: 45-65 Risk factors: 1-2 risk factors Troponin: Troponin T 2.110 ng/mL (0.00-0.029) H* D 11/02/21 04:17 Troponin: < normal limit - Critical Actions Critical Actions: 4-6 pts:12-16.6% risk of adverse cardiac event. Should be admitted Results - Labs CBC & Chem 7: 11/03/21 05:08 11/03/21 05:08 Labs: Laboratory Last Values WBC 9.1 K/mm3 (4.5-11.0) 11/03/21 05:08 RBC 3.77 M/mm3 (3.65-5.03) 11/03/21 05:08 Hgb 11.6 gm/dl (10.1-14.3) 11/03/21 05:08 Hct 35.6 % (30.3-42.9) 11/03/21 05:08 MCV 95 fl (79-97) 11/03/21 05:08 MCH 31 pg (28-32) 11/03/21 05:08 MCHC 33 % (30-34) 11/03/21 05:08 RDW 15.6 % (13.2-15.2) H 11/03/21 05:08 Plt Count 366 K/mm3 (140-440) 11/03/21 05:08 Lymph % (Auto) 37.7 % (13.4-35.0) H 11/03/21 05:08 [place] % (Auto) 6.3 % (0.0-7.3) 11/03/21 05:08 Eos % (Auto) 0.8 % (0.0-4.3) 11/03/21 05:08 Baso % (Auto) 0.4 % (0.0-1.8) 11/03/21 05:08 Lymph # (Auto) 3.4 K/mm3 (1.2-5.4) 11/03/21 05:08 [place] # (Auto) 0.6 K/mm3 (0.0-0.8) 11/03/21 05:08 Eos # (Auto) 0.1 K/mm3 (0.0-0.4) 11/03/21 05:08 Baso # (Auto) 0.0 K/mm3 (0.0-0.1) 11/03/21 05:08 Add Manual Diff Complete 11/01/21 02:53 Total Counted 100 11/01/21 02:53 Seg Neutrophils % 54.8 % (40.0-70.0) 11/03/21 05:08 Seg Neuts % (Manual) 44.0 % (40.0-70.0) 11/01/21 02:53 Band Neutrophils % 0 % 11/01/21 02:53 Lymphocytes % (Manual) 46.0 % (13.4-35.0) H 11/01/21 02:53 Reactive Lymphs % (Man) 0 % 11/01/21 02:53 Monocytes % (Manual) 7.0 % (0.0-7.3) 11/01/21 02:53 Eosinophils % (Manual) 2.0 % (0.0-4.3) 11/01/21 02:53 Basophils % (Manual) 1.0 % (0.0-1.8) 11/01/21 02:53 Metamyelocytes % 0 % 11/01/21 02:53 Myelocytes % 0 % 11/01/21 02:53 Promyelocytes % 0 % 11/01/21 02:53 Blast Cells % 0 % 11/01/21 02:53 Nucleated RBC % Not Reportable 11/01/21 02:53 Seg Neutrophils # 5.0 K/mm3 (1.8-7.7) 11/03/21 05:08 Seg Neutrophils # Man 7.8 K/mm3 (1.8-7.7) H 11/01/21 02:53 Band Neutrophils # 0.0 K/mm3 11/01/21 02:53 Lymphocytes # (Manual) 8.1 K/mm3 (1.2-5.4) H 11/01/21 02:53 Abs React Lymphs (Man) 0.0 K/mm3 11/01/21 02:53 Monocytes # (Manual) 1.2 K/mm3 (0.0-0.8) H 11/01/21 02:53 Eosinophils # (Manual) 0.4 K/mm3 (0.0-0.4) 11/01/21 02:53 Basophils # (Manual) 0.2 K/mm3 (0.0-0.1) H 11/01/21 02:53 Metamyelocytes # 0.0 K/mm3 11/01/21 02:53 Myelocytes # 0.0 K/mm3 11/01/21 02:53 Promyelocytes # 0.0 K/mm3 11/01/21 02:53 Blast Cells # 0.0 K/mm3 11/01/21 02:53 WBC Morphology Not Reportable 11/01/21 02:53 Hypersegmented Neuts Not Reportable 11/01/21 02:53 Hyposegmented Neuts Not Reportable 11/01/21 02:53 Hypogranular Neuts Not Reportable 11/01/21 02:53 Smudge Cells Not Reportable 11/01/21 02:53 Toxic Granulation Not Reportable 11/01/21 02:53 Toxic Vacuolation Not Reportable 11/01/21 02:53 Dohle Bodies Not Reportable 11/01/21 02:53 Pelger-Huet Anomaly Not Reportable 11/01/21 02:53 Jones Rods Not Reportable 11/01/21 02:53 Platelet Estimate Not Reportable 11/01/21 02:53 Clumped Platelets Not Reportable 11/01/21 02:53 Plt Clumps, EDTA Not Reportable 11/01/21 02:53 Large Platelets Not Reportable 11/01/21 02:53 Giant Platelets Not Reportable 11/01/21 02:53 Platelet Satelliting Not Reportable 11/01/21 02:53 Plt Morphology Comment Not Reportable 11/01/21 02:53 RBC Morphology Normal 11/01/21 02:53 Dimorphic RBCs Not Reportable 11/01/21 02:53 Polychromasia Not Reportable 11/01/21 02:53 Hypochromasia Not Reportable 11/01/21 02:53 Poikilocytosis Not Reportable 11/01/21 02:53 Anisocytosis Not Reportable 11/01/21 02:53 Microcytosis Not Reportable 11/01/21 02:53 Macrocytosis Not Reportable 11/01/21 02:53 Spherocytes Not Reportable 11/01/21 02:53 Pappenheimer Bodies Not Reportable 11/01/21 02:53 Sickle Cells Not Reportable 11/01/21 02:53 Target Cells Not Reportable 11/01/21 02:53 Tear Drop Cells Not Reportable 11/01/21 02:53 Ovalocytes Not Reportable 11/01/21 02:53 Helmet Cells Not Reportable 11/01/21 02:53 V[place]o-[place] Bodies Not Reportable 11/01/21 02:53 Meyers Chuck Rings Not Reportable 11/01/21 02:53 Aubrey Cells Not Reportable 11/01/21 02:53 Bite Cells Not Reportable 11/01/21 02:53 Crenated Cell Not Reportable 11/01/21 02:53 Elliptocytes Not Reportable 11/01/21 02:53 Acanthocytes (Spur) Not Reportable 11/01/21 02:53 Rouleaux Not Reportable 11/01/21 02:53 Hemoglobin C Crystals Not Reportable 11/01/21 02:53 Schistocytes Not Reportable 11/01/21 02:53 Malaria parasites Not Reportable 11/01/21 02:53 Tong Bodies Not Reportable 11/01/21 02:53 Hem Pathologist Commnt No 11/01/21 02:53 PT 13.3 Sec. (12.2-14.9) 11/01/21 02:53 INR 0.91 (0.87-1.13) 11/01/21 02:53 APTT 31.1 Sec. (24.2-36.6) 11/01/21 02:53 Sodium 138 mmol/L (137-145) 11/03/21 05:08 Potassium 4.4 mmol/L (3.6-5.0) 11/03/21 05:08 Chloride 101.6 mmol/L (98-107) 11/03/21 05:08 Carbon Dioxide 22 mmol/L (22-30) 11/03/21 05:08 Anion Gap 19 mmol/L 11/03/21 05:08 BUN 30 mg/dL (7-17) H 11/03/21 05:08 Creatinine 1.6 mg/dL (0.6-1.2) H 11/03/21 05:08 Estimated GFR 40 ml/min 11/03/21 05:08 BUN/Creatinine Ratio 19 % 11/03/21 05:08 Glucose 101 mg/dL (65-100) H 11/03/21 05:08 Calcium 9.3 mg/dL (8.4-10.2) 11/03/21 05:08 Phosphorus 4.10 mg/dL (2.5-4.5) 11/01/21 13:55 Magnesium 2.40 mg/dL (1.7-2.3) H 11/03/21 05:08 Total Bilirubin 0.30 mg/dL (0.1-1.2) 11/03/21 05:08 AST 32 units/L (5-40) 11/03/21 05:08 ALT 17 units/L (7-56) 11/03/21 05:08 Alkaline Phosphatase 197 units/L (35-129) H 11/03/21 05:08 Troponin T 2.110 ng/mL (0.00-0.029) H* D 11/02/21 04:17 Total Protein 7.7 g/dL (6.3-8.2) 11/03/21 05:08 Albumin 3.4 g/dL (3.9-5) L 11/03/21 05:08 Albumin/Globulin Ratio 0.8 % 11/03/21 05:08 Triglycerides 266 mg/dL (2-149) H 11/01/21 05:29 Cholesterol 103 mg/dL (50-199) 11/01/21 05:29 LDL Cholesterol Direct 48 mg/dL (50-130) L 11/01/21 05:29 HDL Cholesterol 54 mg/dL (40-59) 11/01/21 05:29 Cholesterol/HDL Ratio 1.90 % 11/01/21 05:29 TSH 3.450 mlU/mL (0.270-4.200) 11/02/21 16:01 Free T4 1.15 ng/dL (0.76-1.46) 11/02/21 16:01 Coronavirus (PCR) Negative (Negative) 11/01/21 Unknown Blood Type B POSITIVE 11/01/21 02:53 Antibody Screen Negative 11/01/21 02:53 Active Medications - Current Medications Current Medications: Generic Name Dose Route Start Last Admin Trade Name Freq PRN Reason Stop Dose Admin Acetaminophen 650 mg 11/01/21 03:07 11/04/21 06:10 Acetaminophen 325 Mg Tab PO 650 mg Q4H PRN Administration Pain MILD(1-3)/Fever >100.5/HO[place] Hydrocodone Bitart/Acetaminophen 1 each 11/01/21 04:23 11/04/21 02:17 Hydrocodone/Acetaminophen 5-325 Mg Tab PO 1 each Q6H PRN Administration Pain, Moderate (4-6) Albuterol 2.5 mg 11/01/21 03:07 Albuterol 2.5 Mg/3 Ml Nebu IH Q4HRT PRN Shortness Of Breath Aspirin 81 mg 11/01/21 10:00 11/03/21 09:29 Aspirin 81 Mg Tab Chew PO 81 mg QDAY SIMBA Administration Atorvastatin Calcium 80 mg 11/01/21 22:00 11/03/21 21:01 Atorvastatin 40 Mg Tab PO 80 mg QHS SIMBA Administration Docusate Sodium 100 mg 11/01/21 22:00 11/03/21 21:01 Docusate Sodium 100 Mg Cap PO 100 mg BID SIMBA Administration Emtricitabine 200 mg 11/04/21 10:00 Emtricitabine 200 Mg Cap PO Q48HR SIMBA Furosemide 20 mg 11/01/21 06:00 11/04/21 06:10 Furosemide 20 Mg/2 Ml Inj IV 20 mg 0600,1800 SIMBA Administration Hydralazine HCl 10 mg 11/01/21 03:20 Hydralazine 20 Mg/1 Ml Inj IV Q6H PRN Blood Pressure Hydralazine HCl 50 mg 11/01/21 11:00 11/04/21 06:10 Hydralazine 25 Mg Tab PO 50 mg Q8HR SIMBA Administration Isosorbide Mononitrate 30 mg 11/01/21 11:00 11/03/21 09:29 Isosorbide Mononitrate Er 30 Mg Tab PO 30 mg QDAY SIMBA Administration Nifedipine 60 mg 11/01/21 11:00 11/03/21 09:29 Nifedipine Xl 60 Mg Tab PO 60 mg QDAY SIMBA Administration Nitroglycerin 0.4 mg 11/01/21 03:07 Nitroglycerin 0.4 Mg Tab Subl SL .Q5MIN PRN Chest Pain Ondansetron HCl 4 mg 11/01/21 03:07 Ondansetron 4 Mg/2 Ml Inj IV Q8H PRN Nausea And Vomiting Pantoprazole Sodium 40 mg 11/01/21 07:30 11/03/21 09:29 Pantoprazole 40 Mg Tab PO 40 mg QDAC SIMBA Administration Sodium Chloride 10 ml 11/01/21 10:00 11/03/21 22:10 Sodium Chloride 0.9% 10 Ml Flush Syringe IV 10 ml BID SIMBA Administration Sodium Chloride 10 ml 11/01/21 03:07 Sodium Chloride 0.9% 10 Ml Flush Syringe IV PRN PRN LINE FLUSH Tenofovir Disoproxil Fumarate 300 mg 11/04/21 10:00 Tenofovir 300 Mg Tab PO Q48HR SIMBA Ticagrelor 90 mg 11/01/21 22:00 11/03/21 21:01 Ticagrelor 90 Mg Tab PO 90 mg BID SIMBA Administration Zolpidem Tartrate 5 mg 11/02/21 22:41 11/03/21 23:11 Zolpidem 5 Mg Tab PO 5 mg QHS PRN Administration Sleep
[2021-11-04] MEDS: DOCUSATE SODIUM 100 MG CAP PO SCH ×2 (09:20→21:10)
[2021-11-04] MEDS: NIFEdipine XL 60 MG TAB PO SCH (09:20)
[2021-11-04] MEDS: ASPIRIN 81 MG TAB CHEW PO SCH (09:20)
[2021-11-04] MEDS: PANTOPRAZOLE 40 MG TAB PO SCH (09:21)
[2021-11-04] MEDS: DOLUTEGRAVIR 50 MG TAB PO SCH (09:22)
[2021-11-04] MEDS: TENOFOVIR 300 MG TAB PO SCH (09:22)
[2021-11-04] MEDS: EMTRICITABINE 200 MG CAP PO SCH (09:22)
[2021-11-04] MEDS: TICAGRELOR 90 MG TAB PO SCH ×2 (10:53→21:09)
--- NOTE | 2021-11-04 11:13 | Progress Note ---
Assessment and Plan Assessment and Plan STEMI, -S/p primary PCI of the LAD with drug-eluting stent. -Continue dual antiplatelet therapy. Continue high intensity statins. However due to high degree AV block patient currently off beta-blockers. Ischemic cardiomyopathy -New onset. Continue current therapy. Unfortunately creatinine is slightly elevated today. No ROBERTO inhibitor's or ARB for now. Discontinue Lasix and monitor creatinine. Patient does not appear to be in congestive heart failure currently. With aggressive medical therapy hopefully cardiomyopathy will improve post PCI. High-grade intermittent AV block, Mobitz type II -Intermittent Mobitz type II blocks noted overnight and in today on telemetry -Intermittent pauses up to 6 secondsP waves without QRS complexes Beta-ness was held. She continues to be bradycardic. Moreover when she is off beta-ness patient having episodes of nonsustained VT. -Patient will most definitely need a pacemaker given the ischemic cardiomyopathy, high degree AV block and nonsustained VT in the absence of beta- blockers. -Tentatively plan for Saturday Acute kidney injury -Presented with a BUN/creatinine of 1.5/23 -Resolving, creatinine 1.1 -Hold Lasix today. -Continue to monitor renal function and electrolytes h/o HIV -Primary team following Subjective Date of service: 11/04/21 Principal diagnosis: Acute myocardial infarction Interval history: Patient reports she is feeling very good. Wants to go home. No palpitations no further chest pain. Objective Vital Signs Temp Pulse Pulse Resp BP Pulse Ox 11/04/21 09:21 103 H 127/72 11/04/21 07:58 95 11/04/21 06:10 85 118/66 11/04/21 04:00 79 75 18 98 11/04/21 00:00 97.6 F 85 75 18 98 11/03/21 22:29 96 11/03/21 20:00 97.8 F 86 75 18 98 11/03/21 16:00 98.2 F 84 75 18 98 11/03/21 13:39 100 H 111/87 11/03/21 12:00 98.1 F 82 76 18 97 - Physical Examination General: No Apparent Distress, Other (Moderately obese) HEENT: Positive: Normocephaly Neck: Positive: neck supple, trachea midline Cardiac: Positive: Reg Rate and Rhythm Lungs: Positive: clear to auscultation Neuro: Positive: Grossly Intact Abdomen: Positive: Unremarkable, Soft Skin: Positive: Clear Extremities: Absent: edema
[2021-11-04] MEDS: HEPARIN 5,000 UNIT/1 ML VIAL SUB-Q SCH ×2 (13:55→21:11)
[2021-11-04] MEDS ORDERED: SODIUM CHLORIDE 0.9% 1000 ML 1,000 ML IV SCH (14:00)
[2021-11-04] MEDS: ZOLPIDEM 5 MG TAB PO PRN (22:32)
[2021-11-05] MEDS: HYDROcodone/ACETAMINOPHEN 5-325 MG TAB PO PRN ×4 (02:31→23:20)
[2021-11-05] MEDS: HEPARIN 5,000 UNIT/1 ML VIAL SUB-Q SCH ×3 (05:03→21:35)
[2021-11-05] MEDS: hydrALAZINE 25 MG TAB PO SCH ×3 (05:50→21:34)
[2021-11-05] MEDS: ACETAMINOPHEN 325 MG TAB PO PRN (05:51)
[2021-11-05 06:47] LABS: Basophils # (Auto) 0.1 K/mm3 (0.0-0.1); Basophils % (Auto) 0.7 % (0.0-1.8); Eosinophils # (Auto) 0.1 K/mm3 (0.0-0.4); Eosinophils % (Auto) 1.2 % (0.0-4.3); Hematocrit 36.8 % (30.3-42.9); Lymphocytes # (Auto) 3.4 K/mm3 (1.2-5.4); Lymphocytes % (Auto) 38.8 % (13.4-35.0); Mean Corpuscular HGB Conc 33 % (30-34); Mean Corpuscular Volume 94 fl (79-97); Monocytes # (Auto) 0.5 K/mm3 (0.0-0.8); Monocytes % (Auto) 6.2 % (0.0-7.3); Platelet Count 384 K/mm3 (140-440); Red Blood Count 3.91 M/mm3 (3.65-5.03); Red Cell Distribution Width 16.1 % (13.2-15.2)
[2021-11-05 07:12] LABS: Calcium 9.7 mg/dL (8.4-10.2)
--- NOTE | 2021-11-05 08:47 | Progress Note ---
Assessment and Plan Assessment and plan: Assessment and plan: 60-year-old female with morbid obesity, HTN, HIV on antiretroviral therapy, hepatitis C, GERD, depression and current tobacco (half a pack per day for 20 ye ars) abuse who presented to the emergency department on 11/01 with complaints of sharp chest pain 10/10 with chest tightness and substernal burning sensation with radiation to left chest associated with shortness of breath, nausea and vomiting. Code STEMI was called when EMS informed charge nurse patient had ST elevation on ECG. EMS administered aspirin and nitroglycerin x2. Upon arrival to emergency department stating was comfortable throughout the ECG and she was taken to [facility] with cardiology where she underwent primary PCI of LAD with deployment of the stent. Post cath, admitted to ICU postop with Aggrastat and nitroglycerin drip. Nitroglycerin drip weaned off and patient started on oral antihypertensives. Cleared to transfer to the floor. COVID PCR negative. Hospital Course 11/03/2021: D/w patient that she will be observed in ICU overweekend. Patient had recent of sister and would like to leave but I recommended against this. She was advised that if she wanted to leave she would have to leave AMA. Avoid philly blockers. will follow with cardiology for further recs. Potential PPM placement on saturday. D/w pharmacy, anti-retrovirals for HIV resumed. 11/04/2021: Episodes of NSVT off BB per cardiology. Plan for PPM on saturday. Will remain in IMCU 11/05/2021: Plan for PPM saturday. Will remain in IMCU for close monitoring. Assessment and Plan Cardio: STEMI, CAD, ischemic cardiomyopathy, h/o HTN -Cardiology consulted, appreciate recommendations -99% occlusion of LAD -S/p PCI to LAD with deployment of stent x1 -Statin - aspirin 81 mg, Brilinta, hydralazine, Procardia -IV Lasix -Echo-borderline LV dilatation, mild to moderate LVH, LVEF 35 to 40%, RVSP 40 mm. -Intraprocedure noted with ischemic cardiomyopathy ejection fraction approximately 40% and anterior wall hypokinesis -Chest x-ray shows no evidence of CHF. -Per cardiology avoid ACEi or ARB due to elevated creatinine presentation - holding BB at this time. High-grade intermittent AV block, Mobitz type II -Intermittent Mobitz type II blocks noted overnight and in today on telemetry -Intermittent pauses up to 6 secondsP waves without QRS complexes Cardiology as well as EP assisting. Beta-ness and AV philly blockers on hold/to be avoided -Electrolytespotassium and magnesium normal. TSH and free T4 normal. May resolved in the setting of STEMI with stent placement -Cardiology recommends close observation in the IMCU - plan for ppm saturday Acute Hypoxic Resp. Insufficiency, ongoing tobacco abuse, morbid obesity -Home medications include albuterol -Tobacco cessation education -Supplemental oxygenation as needed -Weaned to room air -Need outpatient follow up with Pulm -At high risk for ROSLYN, needs to be screened if not already done Hep C History of GERD Acute kidney injury -Presented with a BUN/creatinine of 1.5/23 -Resolving, creatinine 1.1 -On IV diuretic with Lasix -Continue to monitor renal function and electrolytes h/o HIV -d/w pharmacy, ok to resume home antiretroviral therapy once obtained Leukocytosis, resolved -Presented with elevated WBC -Resolved -Likely reactive The high probability of a clinically significant, sudden or life threatening deterioration of the [cardiac] system(s) required my full and direct attention, intervention and personal management. The aggregate critical care time was [60] minutes. This time is in addition to time spent performing reported procedures but includes the following: [x] Data Review and interpretation [x] Patient assessment and monitoring of vital signs [x] Documentation [x] Medication orders and management History Interval history: Doing well on encounter. Pulse rate was in 80's. rhythm is NSR on tele. Hospitalist Physical - Physical exam Narrative exam: General appearance: Present: no acute distress, obese - EENT Eyes: Present: PERRL, EOM intact ENT: hearing intact - Neck Neck: Present: supple - Respiratory Respiratory effort: normal Respiratory: bilateral: CTA - Cardiovascular Rhythm: regular - Extremities Extremities: No edema - Abdominal General gastrointestinal: soft, non-tender, other (Obese) - Integumentary Integumentary: Absent: rash - Psychiatric Psychiatric: appropriate mood/affect - Neurologic Neurologic: no focal deficits, moves all extremities - Constitutional Vitals: Temp Pulse Resp BP Pulse Ox 98.6 F 92 H 16 147/99 97 11/05/21 04:00 11/05/21 06:00 11/05/21 04:00 11/05/21 06:00 11/05/21 06:00 General appearance: Present: no acute distress, obese HEART Score - HEART Score EKG: Significant ST-depression Age: 45-65 Risk factors: 1-2 risk factors Troponin: Troponin T 2.110 ng/mL (0.00-0.029) H* D 11/02/21 04:17 Troponin: < normal limit - Critical Actions Critical Actions: 4-6 pts:12-16.6% risk of adverse cardiac event. Should be admitted Results - Labs CBC & Chem 7: 11/05/21 06:29 11/05/21 06:29 Labs: Laboratory Last Values WBC 8.8 K/mm3 (4.5-11.0) 11/05/21 06:29 RBC 3.91 M/mm3 (3.65-5.03) 11/05/21 06:29 Hgb 12.0 gm/dl (10.1-14.3) 11/05/21 06:29 Hct 36.8 % (30.3-42.9) 11/05/21 06:29 MCV 94 fl (79-97) 11/05/21 06:29 MCH 31 pg (28-32) 11/05/21 06:29 MCHC 33 % (30-34) 11/05/21 06:29 RDW 16.1 % (13.2-15.2) H 11/05/21 06:29 Plt Count 384 K/mm3 (140-440) 11/05/21 06:29 Lymph % (Auto) 38.8 % (13.4-35.0) H 11/05/21 06:29 [place] % (Auto) 6.2 % (0.0-7.3) 11/05/21 06:29 Eos % (Auto) 1.2 % (0.0-4.3) 11/05/21 06:29 Baso % (Auto) 0.7 % (0.0-1.8) 11/05/21 06:29 Lymph # (Auto) 3.4 K/mm3 (1.2-5.4) 11/05/21 06:29 [place] # (Auto) 0.5 K/mm3 (0.0-0.8) 11/05/21 06:29 Eos # (Auto) 0.1 K/mm3 (0.0-0.4) 11/05/21 06:29 Baso # (Auto) 0.1 K/mm3 (0.0-0.1) 11/05/21 06:29 Add Manual Diff Complete 11/01/21 02:53 Total Counted 100 11/01/21 02:53 Seg Neutrophils % 53.1 % (40.0-70.0) 11/05/21 06:29 Seg Neuts % (Manual) 44.0 % (40.0-70.0) 11/01/21 02:53 Band Neutrophils % 0 % 11/01/21 02:53 Lymphocytes % (Manual) 46.0 % (13.4-35.0) H 11/01/21 02:53 Reactive Lymphs % (Man) 0 % 11/01/21 02:53 Monocytes % (Manual) 7.0 % (0.0-7.3) 11/01/21 02:53 Eosinophils % (Manual) 2.0 % (0.0-4.3) 11/01/21 02:53 Basophils % (Manual) 1.0 % (0.0-1.8) 11/01/21 02:53 Metamyelocytes % 0 % 11/01/21 02:53 Myelocytes % 0 % 11/01/21 02:53 Promyelocytes % 0 % 11/01/21 02:53 Blast Cells % 0 % 11/01/21 02:53 Nucleated RBC % Not Reportable 11/01/21 02:53 Seg Neutrophils # 4.7 K/mm3 (1.8-7.7) 11/05/21 06:29 Seg Neutrophils # Man 7.8 K/mm3 (1.8-7.7) H 11/01/21 02:53 Band Neutrophils # 0.0 K/mm3 11/01/21 02:53 Lymphocytes # (Manual) 8.1 K/mm3 (1.2-5.4) H 11/01/21 02:53 Abs React Lymphs (Man) 0.0 K/mm3 11/01/21 02:53 Monocytes # (Manual) 1.2 K/mm3 (0.0-0.8) H 11/01/21 02:53 Eosinophils # (Manual) 0.4 K/mm3 (0.0-0.4) 11/01/21 02:53 Basophils # (Manual) 0.2 K/mm3 (0.0-0.1) H 11/01/21 02:53 Metamyelocytes # 0.0 K/mm3 11/01/21 02:53 Myelocytes # 0.0 K/mm3 11/01/21 02:53 Promyelocytes # 0.0 K/mm3 11/01/21 02:53 Blast Cells # 0.0 K/mm3 11/01/21 02:53 WBC Morphology Not Reportable 11/01/21 02:53 Hypersegmented Neuts Not Reportable 11/01/21 02:53 Hyposegmented Neuts Not Reportable 11/01/21 02:53 Hypogranular Neuts Not Reportable 11/01/21 02:53 Smudge Cells Not Reportable 11/01/21 02:53 Toxic Granulation Not Reportable 11/01/21 02:53 Toxic Vacuolation Not Reportable 11/01/21 02:53 Dohle Bodies Not Reportable 11/01/21 02:53 Pelger-Huet Anomaly Not Reportable 11/01/21 02:53 Jones Rods Not Reportable 11/01/21 02:53 Platelet Estimate Not Reportable 11/01/21 02:53 Clumped Platelets Not Reportable 11/01/21 02:53 Plt Clumps, EDTA Not Reportable 11/01/21 02:53 Large Platelets Not Reportable 11/01/21 02:53 Giant Platelets Not Reportable 11/01/21 02:53 Platelet Satelliting Not Reportable 11/01/21 02:53 Plt Morphology Comment Not Reportable 11/01/21 02:53 RBC Morphology Normal 11/01/21 02:53 Dimorphic RBCs Not Reportable 11/01/21 02:53 Polychromasia Not Reportable 11/01/21 02:53 Hypochromasia Not Reportable 11/01/21 02:53 Poikilocytosis Not Reportable 11/01/21 02:53 Anisocytosis Not Reportable 11/01/21 02:53 Microcytosis Not Reportable 11/01/21 02:53 Macrocytosis Not Reportable 11/01/21 02:53 Spherocytes Not Reportable 11/01/21 02:53 Pappenheimer Bodies Not Reportable 11/01/21 02:53 Sickle Cells Not Reportable 11/01/21 02:53 Target Cells Not Reportable 11/01/21 02:53 Tear Drop Cells Not Reportable 11/01/21 02:53 Ovalocytes Not Reportable 11/01/21 02:53 Helmet Cells Not Reportable 11/01/21 02:53 Vizcaino-[place] Bodies Not Reportable 11/01/21 02:53 Roland Rings Not Reportable 11/01/21 02:53 [place] Cells Not Reportable 11/01/21 02:53 Bite Cells Not Reportable 11/01/21 02:53 Crenated Cell Not Reportable 11/01/21 02:53 Elliptocytes Not Reportable 11/01/21 02:53 Acanthocytes (Spur) Not Reportable 11/01/21 02:53 Rouleaux Not Reportable 11/01/21 02:53 Hemoglobin C Crystals Not Reportable 11/01/21 02:53 Schistocytes Not Reportable 11/01/21 02:53 Malaria parasites Not Reportable 11/01/21 02:53 Tong Bodies Not Reportable 11/01/21 02:53 Hem Pathologist Commnt No 11/01/21 02:53 PT 13.3 Sec. (12.2-14.9) 11/01/21 02:53 INR 0.91 (0.87-1.13) 11/01/21 02:53 APTT 31.1 Sec. (24.2-36.6) 11/01/21 02:53 Sodium 137 mmol/L (137-145) 11/05/21 06:29 Potassium 4.6 mmol/L (3.6-5.0) 11/05/21 06:29 Chloride 102.4 mmol/L (98-107) 11/05/21 06:29 Carbon Dioxide 21 mmol/L (22-30) L 11/05/21 06:29 Anion Gap 18 mmol/L 11/05/21 06:29 BUN 35 mg/dL (7-17) H 11/05/21 06:29 Creatinine 1.7 mg/dL (0.6-1.2) H 11/05/21 06:29 Estimated GFR 37 ml/min 11/05/21 06:29 BUN/Creatinine Ratio 21 % 11/05/21 06:29 Glucose 105 mg/dL (65-100) H 11/05/21 06:29 Calcium 9.7 mg/dL (8.4-10.2) 11/05/21 06:29 Phosphorus 4.10 mg/dL (2.5-4.5) 11/01/21 13:55 Magnesium 2.40 mg/dL (1.7-2.3) H 11/03/21 05:08 Total Bilirubin 0.30 mg/dL (0.1-1.2) 11/03/21 05:08 AST 32 units/L (5-40) 11/03/21 05:08 ALT 17 units/L (7-56) 11/03/21 05:08 Alkaline Phosphatase 197 units/L (35-129) H 11/03/21 05:08 Troponin T 2.110 ng/mL (0.00-0.029) H* D 11/02/21 04:17 Total Protein 7.7 g/dL (6.3-8.2) 11/03/21 05:08 Albumin 3.4 g/dL (3.9-5) L 11/03/21 05:08 Albumin/Globulin Ratio 0.8 % 11/03/21 05:08 Triglycerides 266 mg/dL (2-149) H 11/01/21 05:29 Cholesterol 103 mg/dL (50-199) 11/01/21 05:29 LDL Cholesterol Direct 48 mg/dL (50-130) L 11/01/21 05:29 HDL Cholesterol 54 mg/dL (40-59) 11/01/21 05:29 Cholesterol/HDL Ratio 1.90 % 11/01/21 05:29 TSH 3.450 mlU/mL (0.270-4.200) 11/02/21 16:01 Free T4 1.15 ng/dL (0.76-1.46) 11/02/21 16:01 Coronavirus (PCR) Negative (Negative) 11/01/21 Unknown Blood Type B POSITIVE 11/01/21 02:53 Antibody Screen Negative 11/01/21 02:53 Active Medications - Current Medications Current Medications: Generic Name Dose Route Start Last Admin Trade Name Freq PRN Reason Stop Dose Admin Acetaminophen 650 mg 11/01/21 03:07 11/05/21 05:51 Acetaminophen 325 Mg Tab PO 650 mg Q4H PRN Administration Pain MILD(1-3)/Fever >100.5/[place] Hydrocodone Bitart/Acetaminophen 1 each 11/01/21 04:23 11/05/21 02:31 Hydrocodone/Acetaminophen 5-325 Mg Tab PO 1 each Q6H PRN Administration Pain, Moderate (4-6) Albuterol 2.5 mg 11/01/21 03:07 Albuterol 2.5 Mg/3 Ml Nebu IH Q4HRT PRN Shortness Of Breath Aspirin 81 mg 11/01/21 10:00 11/04/21 09:20 Aspirin 81 Mg Tab Chew PO 81 mg QDAY SIMBA Administration Atorvastatin Calcium 80 mg 11/01/21 22:00 11/04/21 21:11 Atorvastatin 40 Mg Tab PO 80 mg QHS SIMBA Administration Docusate Sodium 100 mg 11/01/21 22:00 11/04/21 21:10 Docusate Sodium 100 Mg Cap PO 100 mg BID SIMBA Administration Emtricitabine 200 mg 11/04/21 10:00 11/04/21 09:22 Emtricitabine 200 Mg Cap PO 200 mg Q48HR SIMBA Administration Heparin Sodium (Porcine) 5,000 unit 11/04/21 14:00 11/05/21 05:03 Heparin 5,000 Unit/1 Ml Vial SUB-Q 5,000 unit Q8HR SIMBA Administration Hydralazine HCl 10 mg 11/01/21 03:20 Hydralazine 20 Mg/1 Ml Inj IV Q6H PRN Blood Pressure Hydralazine HCl 50 mg 11/01/21 11:00 11/05/21 05:50 Hydralazine 25 Mg Tab PO 50 mg Q8HR SIMBA Administration Isosorbide Mononitrate 30 mg 11/01/21 11:00 11/04/21 09:21 Isosorbide Mononitrate Er 30 Mg Tab PO 30 mg QDAY SIMBA Administration Nifedipine 60 mg 11/01/21 11:00 11/04/21 09:20 Nifedipine Xl 60 Mg Tab PO 60 mg QDAY SIMBA Administration Nitroglycerin 0.4 mg 11/01/21 03:07 Nitroglycerin 0.4 Mg Tab Subl SL .Q5MIN PRN Chest Pain Ondansetron HCl 4 mg 11/01/21 03:07 Ondansetron 4 Mg/2 Ml Inj IV Q8H PRN Nausea And Vomiting Pantoprazole Sodium 40 mg 11/01/21 07:30 11/04/21 09:21 Pantoprazole 40 Mg Tab PO 40 mg QDAC SIMBA Administration Sodium Chloride 10 ml 11/01/21 10:00 11/04/21 21:11 Sodium Chloride 0.9% 10 Ml Flush Syringe IV 10 ml BID SIMBA Administration Sodium Chloride 10 ml 11/01/21 03:07 Sodium Chloride 0.9% 10 Ml Flush Syringe IV PRN PRN LINE FLUSH Tenofovir Disoproxil Fumarate 300 mg 11/04/21 10:00 11/04/21 09:22 Tenofovir 300 Mg Tab PO 300 mg Q48HR SIMBA Administration Ticagrelor 90 mg 11/01/21 22:00 11/04/21 21:09 Ticagrelor 90 Mg Tab PO 90 mg BID SIMBA Administration Zolpidem Tartrate 5 mg 11/02/21 22:41 11/04/21 22:32 Zolpidem 5 Mg Tab PO 5 mg QHS PRN Administration Sleep
[2021-11-05] MEDS: PANTOPRAZOLE 40 MG TAB PO SCH (09:11)
[2021-11-05] MEDS: TICAGRELOR 90 MG TAB PO SCH ×2 (09:11→21:35)
[2021-11-05] MEDS: NIFEdipine XL 60 MG TAB PO SCH (09:11)
[2021-11-05] MEDS: DOLUTEGRAVIR 50 MG TAB PO SCH (09:11)
[2021-11-05] MEDS: DOCUSATE SODIUM 100 MG CAP PO SCH ×2 (09:11→21:35)
[2021-11-05] MEDS: ASPIRIN 81 MG TAB CHEW PO SCH (09:11)
--- NOTE | 2021-11-05 09:51 | Progress Note ---
Assessment and Plan Assessment and Plan STEMI, -S/p primary PCI of the LAD with drug-eluting stent. -Continue dual antiplatelet therapy. Continue high intensity statins. However due to high degree AV block patient currently off beta-blockers. Ischemic cardiomyopathy -New onset. Continue current therapy. Unfortunately creatinine is slightly elevated again today.. No ROBERTO inhibitor's or ARB for now. Continue to hold Lasix and monitor creatinine. Patient does not appear to be in congestive heart failure currently. With aggressive medical therapy hopefully cardiomyopathy will improve post PCI. High-grade intermittent AV block, Mobitz type II -Intermittent Mobitz type II blocks noted overnight on telemetry. Patient also having episodes of nonsustained VT. Patient asymptomatic. -Intermittent pauses up to 6 secondsP waves without QRS complexes noted previously. Beta-ness was held. She continues to be bradycardic. Moreover when she is off beta-ness patient having episodes of nonsustained VT. -Patient will most definitely need a pacemaker given the ischemic cardiomyopathy, high degree AV block and nonsustained VT in the absence of beta- blockers. -Discussed with patient. Discussed with the EP service. Pacemaker planned for tomorrow. Keep patient NPO. However she can receive her morning dose of Brilinta. Acute kidney injury -Presented with a BUN/creatinine of 1.5/ -Resolving, creatinine 1.1 -Hold Lasix today. -Continue to monitor renal function and electrolytes h/o HIV -Primary team following Subjective Date of service: 11/05/21 Principal diagnosis: Acute myocardial infarction Interval history: Patient reports she is feeling very good. Wants to go home. No palpitations no further chest pain. Objective Vital Signs Temp Pulse Pulse Resp BP Pulse Ox 11/05/21 09:11 102 H 177/64 11/05/21 06:00 92 H 147/99 97 11/05/21 05:01 102 H 125/91 96 11/05/21 04:01 96 H 125/91 88 11/05/21 04:00 98.6 F 94 H 16 99 11/05/21 03:01 79 125/91 100 11/05/21 02:01 93 H 125/91 98 11/05/21 01:00 96 H 125/91 81 L 11/05/21 00:01 79 124/85 76 L 11/05/21 00:00 97.6 F 103 H 94 H 16 99 11/04/21 23:31 98 H 138/75 96 11/04/21 23:00 95 H 138/75 94 11/04/21 22:00 91 H 162/79 99 11/04/21 21:48 95 H 122/67 99 11/04/21 21:00 88 162/79 97 11/04/21 20:00 98.9 F 95 H 94 H 16 158/84 96 11/04/21 19:21 88 151/75 98 11/04/21 19:11 90 151/75 100 11/04/21 19:00 85 151/75 96 11/04/21 18:51 87 137/96 96 11/04/21 18:41 91 H 137/96 97 11/04/21 18:31 112 H 137/96 96 11/04/21 18:21 88 137/96 96 11/04/21 18:11 89 137/96 98 11/04/21 18:00 86 137/96 97 11/04/21 17:51 93 H 138/92 97 11/04/21 17:41 88 138/92 98 11/04/21 17:31 89 138/92 96 11/04/21 17:21 138/92 99 11/04/21 17:11 138/92 97 11/04/21 17:00 138/92 99 11/04/21 16:51 132/82 99 11/04/21 16:41 132/82 98 11/04/21 16:31 132/82 97 11/04/21 16:21 91 H 132/82 99 11/04/21 16:11 96 H 132/82 98 11/04/21 16:00 88 84 18 132/82 97 11/04/21 15:51 93 H 119/83 100 11/04/21 15:41 86 119/83 86 11/04/21 15:31 96 H 119/83 97 11/04/21 15:21 82 119/83 100 11/04/21 15:11 66 119/83 92 11/04/21 15:00 75 119/83 87 11/04/21 14:51 92 H 137/85 98 11/04/21 14:41 92 H 137/85 98 11/04/21 14:31 91 H 137/85 99 11/04/21 14:21 90 137/85 97 11/04/21 14:11 91 H 137/85 100 11/04/21 14:00 88 137/85 11/04/21 13:55 91 H 119/61 11/04/21 13:51 90 119/61 98 11/04/21 13:41 90 119/61 98 11/04/21 13:31 87 119/61 100 11/04/21 13:21 93 H 119/61 100 11/04/21 13:11 97 H 119/61 98 11/04/21 13:01 95 H 119/61 95 11/04/21 12:51 100 H 122/67 98 11/04/21 12:41 101 H 122/67 99 11/04/21 12:31 93 H 122/67 100 11/04/21 12:21 102 H 122/67 98 11/04/21 12:11 100 H 135/74 98 11/04/21 12:00 83 80 18 135/74 99 11/04/21 11:50 88 135/74 97 11/04/21 11:40 92 H 135/74 97 11/04/21 11:30 81 135/74 95 11/04/21 11:20 88 135/74 100 11/04/21 11:10 93 H 135/74 98 - Physical Examination General: No Apparent Distress, Other (Moderately obese) HEENT: Positive: Normocephaly Neck: Positive: neck supple, trachea midline Cardiac: Positive: Reg Rate and Rhythm Lungs: Positive: clear to auscultation Neuro: Positive: Grossly Intact Abdomen: Positive: Unremarkable, Soft Skin: Positive: Clear Extremities: Absent: edema - Labs and Meds CBC 11/05/21 Range/Units 06:29 WBC 8.8 (4.5-11.0) K/mm3 RBC 3.91 (3.65-5.03) M/mm3 Hgb 12.0 (10.1-14.3) gm/dl Hct 36.8 (30.3-42.9) % Plt Count 384 (140-440) K/mm3 Lymph # (Auto) 3.4 (1.2-5.4) K/mm3 [place] # (Auto) 0.5 (0.0-0.8) K/mm3 Eos # (Auto) 0.1 (0.0-0.4) K/mm3 Baso # (Auto) 0.1 (0.0-0.1) K/mm3 Comprehensive Metabolic Panel 11/05/21 Range/Units 06:29 Sodium 137 (137-145) mmol/L Potassium 4.6 (3.6-5.0) mmol/L Chloride 102.4 (98-107) mmol/L Carbon Dioxide 21 L (22-30) mmol/L BUN 35 H (7-17) mg/dL Creatinine 1.7 H (0.6-1.2) mg/dL Glucose 105 H (65-100) mg/dL Calcium 9.7 (8.4-10.2) mg/dL
[2021-11-05] MEDS: ZOLPIDEM 5 MG TAB PO PRN (21:35)
[2021-11-06] MEDS: ACETAMINOPHEN 325 MG TAB PO PRN ×3 (03:01→22:25)
[2021-11-06] MEDS: HYDROcodone/ACETAMINOPHEN 5-325 MG TAB PO PRN ×2 (05:24→19:19)
[2021-11-06] MEDS: hydrALAZINE 25 MG TAB PO SCH ×3 (05:24→22:23)
[2021-11-06] MEDS: HEPARIN 5,000 UNIT/1 ML VIAL SUB-Q SCH ×3 (05:24→22:26)
[2021-11-06] MEDS: ASPIRIN 81 MG TAB CHEW PO SCH (10:16)
[2021-11-06] MEDS: NIFEdipine XL 60 MG TAB PO SCH (10:16)
[2021-11-06] MEDS: TENOFOVIR 300 MG TAB PO SCH (10:16)
[2021-11-06] MEDS: TICAGRELOR 90 MG TAB PO SCH ×2 (10:17→22:24)
[2021-11-06] MEDS: DOCUSATE SODIUM 100 MG CAP PO SCH ×2 (10:17→22:24)
[2021-11-06] MEDS: EMTRICITABINE 200 MG CAP PO SCH (10:17)
[2021-11-06] MEDS: PANTOPRAZOLE 40 MG TAB PO SCH (10:20)
[2021-11-06] MEDS ORDERED: SODIUM CHLORIDE 0.9% 500 ML 500 ML IV SCH (12:00)
--- NOTE | 2021-11-06 13:11 | Progress Note ---
Assessment and Plan Assessment and plan: Assessment and plan: 60-year-old female with morbid obesity, HTN, HIV on antiretroviral therapy, hepatitis C, GERD, depression and current tobacco (half a pack per day for 20 ye ars) abuse who presented to the emergency department on 11/01 with complaints of sharp chest pain 10/10 with chest tightness and substernal burning sensation with radiation to left chest associated with shortness of breath, nausea and vomiting. Code STEMI was called when EMS informed charge nurse patient had ST elevation on ECG. EMS administered aspirin and nitroglycerin x2. Upon arrival to emergency department stating was comfortable throughout the ECG and she was taken to Gastroenterology Physician with cardiology where she underwent primary PCI of LAD with deployment of the stent. Post cath, admitted to ICU postop with Aggrastat and nitroglycerin drip. Nitroglycerin drip weaned off and patient started on oral antihypertensives. Cleared to transfer to the floor. COVID PCR negative. Hospital Course 11/03/2021: D/w patient that she will be observed in ICU overweekend. Patient had recent of sister and would like to leave but I recommended against this. She was advised that if she wanted to leave she would have to leave AMA. Avoid philly blockers. will follow with cardiology for further recs. Potential PPM placement on saturday. D/w pharmacy, anti-retrovirals for HIV resumed. 11/04/2021: Episodes of NSVT off BB per cardiology. Plan for PPM on saturday. Will remain in IMCU 11/05/2021: Plan for PPM saturday. Will remain in IMCU for close monitoring. 11/06/2021: PPM today. Anticipate discharge in next 24hrs per cardiology discretion. Assessment and Plan Cardio: STEMI, CAD, ischemic cardiomyopathy, h/o HTN -Cardiology consulted, appreciate recommendations -99% occlusion of LAD -S/p PCI to LAD with deployment of stent x1 -Statin - aspirin 81 mg, Brilinta, hydralazine, Procardia -IV Lasix -Echo-borderline LV dilatation, mild to moderate LVH, LVEF 35 to 40%, RVSP 40 mm. -Intraprocedure noted with ischemic cardiomyopathy ejection fraction approximately 40% and anterior wall hypokinesis -Chest x-ray shows no evidence of CHF. -Per cardiology avoid ACEi or ARB due to elevated creatinine presentation - holding BB at this time. High-grade intermittent AV block, Mobitz type II -Intermittent Mobitz type II blocks noted overnight and in today on telemetry -Intermittent pauses up to 6 secondsP waves without QRS complexes Cardiology as well as EP assisting. Beta-ness and AV philly blockers on hold/to be avoided -Electrolytespotassium and magnesium normal. TSH and free T4 normal. May resolved in the setting of STEMI with stent placement -Cardiology recommends close observation in the IMCU - plan for ppm saturday Acute Hypoxic Resp. Insufficiency, ongoing tobacco abuse, morbid obesity -Home medications include albuterol -Tobacco cessation education -Supplemental oxygenation as needed -Weaned to room air -Need outpatient follow up with Pulm -At high risk for ROSLYN, needs to be screened if not already done Hep C History of GERD Acute kidney injury -Presented with a BUN/creatinine of 1.5/23 -Resolving, creatinine 1.1 -On IV diuretic with Lasix -Continue to monitor renal function and electrolytes h/o HIV -d/w pharmacy, ok to resume home antiretroviral therapy once obtained Leukocytosis, resolved -Presented with elevated WBC -Resolved -Likely reactive The high probability of a clinically significant, sudden or life threatening deterioration of the [cardiac] system(s) required my full and direct attention, intervention and personal management. The aggregate critical care time was [60] minutes. This time is in addition to time spent performing reported procedures but includes the following: [x] Data Review and interpretation [x] Patient assessment and monitoring of vital signs [x] Documentation [x] Medication orders and management History Interval history: No complaints this AM. Patient to recieve PPM from cardiology at 1pm today. Will follow up post op. Hospitalist Physical - Physical exam Narrative exam: General appearance: Present: no acute distress, obese - EENT Eyes: Present: PERRL, EOM intact ENT: hearing intact - Neck Neck: Present: supple - Respiratory Respiratory effort: normal Respiratory: bilateral: CTA - Cardiovascular Rhythm: regular - Extremities Extremities: No edema - Abdominal General gastrointestinal: soft, non-tender, other (Obese) - Integumentary Integumentary: Absent: rash - Psychiatric Psychiatric: appropriate mood/affect - Neurologic Neurologic: no focal deficits, moves all extremities - Constitutional Vitals: Temp Pulse Resp BP Pulse Ox 98.8 F 89 20 121/71 97 11/06/21 12:05 11/06/21 11:00 11/06/21 08:00 11/06/21 11:00 11/06/21 11:00 General appearance: Present: no acute distress, obese HEART Score - HEART Score EKG: Significant ST-depression Age: 45-65 Risk factors: 1-2 risk factors Troponin: Troponin T 2.110 ng/mL (0.00-0.029) H* D 11/02/21 04:17 Troponin: < normal limit - Critical Actions Critical Actions: 4-6 pts:12-16.6% risk of adverse cardiac event. Should be admitted Results - Labs CBC & Chem 7: 11/05/21 06:29 11/05/21 06:29 Labs: Laboratory Last Values WBC 8.8 K/mm3 (4.5-11.0) 11/05/21 06:29 RBC 3.91 M/mm3 (3.65-5.03) 11/05/21 06:29 Hgb 12.0 gm/dl (10.1-14.3) 11/05/21 06:29 Hct 36.8 % (30.3-42.9) 11/05/21 06:29 MCV 94 fl (79-97) 11/05/21 06:29 MCH 31 pg (28-32) 11/05/21 06:29 MCHC 33 % (30-34) 11/05/21 06:29 RDW 16.1 % (13.2-15.2) H 11/05/21 06:29 Plt Count 384 K/mm3 (140-440) 11/05/21 06:29 Lymph % (Auto) 38.8 % (13.4-35.0) H 11/05/21 06:29 [place] % (Auto) 6.2 % (0.0-7.3) 11/05/21 06:29 Eos % (Auto) 1.2 % (0.0-4.3) 11/05/21 06:29 Baso % (Auto) 0.7 % (0.0-1.8) 11/05/21 06:29 Lymph # (Auto) 3.4 K/mm3 (1.2-5.4) 11/05/21 06:29 [place] # (Auto) 0.5 K/mm3 (0.0-0.8) 11/05/21 06:29 Eos # (Auto) 0.1 K/mm3 (0.0-0.4) 11/05/21 06:29 Baso # (Auto) 0.1 K/mm3 (0.0-0.1) 11/05/21 06:29 Add Manual Diff Complete 11/01/21 02:53 Total Counted 100 11/01/21 02:53 Seg Neutrophils % 53.1 % (40.0-70.0) 11/05/21 06:29 Seg Neuts % (Manual) 44.0 % (40.0-70.0) 11/01/21 02:53 Band Neutrophils % 0 % 11/01/21 02:53 Lymphocytes % (Manual) 46.0 % (13.4-35.0) H 11/01/21 02:53 Reactive Lymphs % (Man) 0 % 11/01/21 02:53 Monocytes % (Manual) 7.0 % (0.0-7.3) 11/01/21 02:53 Eosinophils % (Manual) 2.0 % (0.0-4.3) 11/01/21 02:53 Basophils % (Manual) 1.0 % (0.0-1.8) 11/01/21 02:53 Metamyelocytes % 0 % 11/01/21 02:53 Myelocytes % 0 % 11/01/21 02:53 Promyelocytes % 0 % 11/01/21 02:53 Blast Cells % 0 % 11/01/21 02:53 Nucleated RBC % Not Reportable 11/01/21 02:53 Seg Neutrophils # 4.7 K/mm3 (1.8-7.7) 11/05/21 06:29 Seg Neutrophils # Man 7.8 K/mm3 (1.8-7.7) H 11/01/21 02:53 Band Neutrophils # 0.0 K/mm3 11/01/21 02:53 Lymphocytes # (Manual) 8.1 K/mm3 (1.2-5.4) H 11/01/21 02:53 Abs React Lymphs (Man) 0.0 K/mm3 11/01/21 02:53 Monocytes # (Manual) 1.2 K/mm3 (0.0-0.8) H 11/01/21 02:53 Eosinophils # (Manual) 0.4 K/mm3 (0.0-0.4) 11/01/21 02:53 Basophils # (Manual) 0.2 K/mm3 (0.0-0.1) H 11/01/21 02:53 Metamyelocytes # 0.0 K/mm3 11/01/21 02:53 Myelocytes # 0.0 K/mm3 11/01/21 02:53 Promyelocytes # 0.0 K/mm3 11/01/21 02:53 Blast Cells # 0.0 K/mm3 11/01/21 02:53 WBC Morphology Not Reportable 11/01/21 02:53 Hypersegmented Neuts Not Reportable 11/01/21 02:53 Hyposegmented Neuts Not Reportable 11/01/21 02:53 Hypogranular Neuts Not Reportable 11/01/21 02:53 Smudge Cells Not Reportable 11/01/21 02:53 Toxic Granulation Not Reportable 11/01/21 02:53 Toxic Vacuolation Not Reportable 11/01/21 02:53 Dohle Bodies Not Reportable 11/01/21 02:53 Pelger-Huet Anomaly Not Reportable 11/01/21 02:53 Jones Rods Not Reportable 11/01/21 02:53 Platelet Estimate Not Reportable 11/01/21 02:53 Clumped Platelets Not Reportable 11/01/21 02:53 Plt Clumps, EDTA Not Reportable 11/01/21 02:53 Large Platelets Not Reportable 11/01/21 02:53 Giant Platelets Not Reportable 11/01/21 02:53 Platelet Satelliting Not Reportable 11/01/21 02:53 Plt Morphology Comment Not Reportable 11/01/21 02:53 RBC Morphology Normal 11/01/21 02:53 Dimorphic RBCs Not Reportable 11/01/21 02:53 Polychromasia Not Reportable 11/01/21 02:53 Hypochromasia Not Reportable 11/01/21 02:53 Poikilocytosis Not Reportable 11/01/21 02:53 Anisocytosis Not Reportable 11/01/21 02:53 Microcytosis Not Reportable 11/01/21 02:53 Macrocytosis Not Reportable 11/01/21 02:53 Spherocytes Not Reportable 11/01/21 02:53 Pappenheimer Bodies Not Reportable 11/01/21 02:53 Sickle Cells Not Reportable 11/01/21 02:53 Target Cells Not Reportable 11/01/21 02:53 Tear Drop Cells Not Reportable 11/01/21 02:53 Ovalocytes Not Reportable 11/01/21 02:53 Helmet Cells Not Reportable 11/01/21 02:53 [place] Bodies Not Reportable 11/01/21 02:53 Kennedy Rings Not Reportable 11/01/21 02:53 Aubrey Cells Not Reportable 11/01/21 02:53 Bite Cells Not Reportable 11/01/21 02:53 Crenated Cell Not Reportable 11/01/21 02:53 Elliptocytes Not Reportable 11/01/21 02:53 Acanthocytes (Spur) Not Reportable 11/01/21 02:53 Rouleaux Not Reportable 11/01/21 02:53 Hemoglobin C Crystals Not Reportable 11/01/21 02:53 Schistocytes Not Reportable 11/01/21 02:53 Malaria parasites Not Reportable 11/01/21 02:53 Tong Bodies Not Reportable 11/01/21 02:53 Hem Pathologist Commnt No 11/01/21 02:53 PT 13.3 Sec. (12.2-14.9) 11/01/21 02:53 INR 0.91 (0.87-1.13) 11/01/21 02:53 APTT 31.1 Sec. (24.2-36.6) 11/01/21 02:53 Sodium 137 mmol/L (137-145) 11/05/21 06:29 Potassium 4.6 mmol/L (3.6-5.0) 11/05/21 06:29 Chloride 102.4 mmol/L (98-107) 11/05/21 06:29 Carbon Dioxide 21 mmol/L (22-30) L 11/05/21 06:29 Anion Gap 18 mmol/L 11/05/21 06:29 BUN 35 mg/dL (7-17) H 11/05/21 06:29 Creatinine 1.7 mg/dL (0.6-1.2) H 11/05/21 06:29 Estimated GFR 37 ml/min 11/05/21 06:29 BUN/Creatinine Ratio 21 % 11/05/21 06:29 Glucose 105 mg/dL (65-100) H 11/05/21 06:29 POC Glucose 103 mg/dL (70-105) 11/06/21 11:06 Calcium 9.7 mg/dL (8.4-10.2) 11/05/21 06:29 Phosphorus 4.10 mg/dL (2.5-4.5) 11/01/21 13:55 Magnesium 2.40 mg/dL (1.7-2.3) H 11/03/21 05:08 Total Bilirubin 0.30 mg/dL (0.1-1.2) 11/03/21 05:08 AST 32 units/L (5-40) 11/03/21 05:08 ALT 17 units/L (7-56) 11/03/21 05:08 Alkaline Phosphatase 197 units/L (35-129) H 11/03/21 05:08 Troponin T 2.110 ng/mL (0.00-0.029) H* D 11/02/21 04:17 Total Protein 7.7 g/dL (6.3-8.2) 11/03/21 05:08 Albumin 3.4 g/dL (3.9-5) L 11/03/21 05:08 Albumin/Globulin Ratio 0.8 % 11/03/21 05:08 Triglycerides 266 mg/dL (2-149) H 11/01/21 05:29 Cholesterol 103 mg/dL (50-199) 11/01/21 05:29 LDL Cholesterol Direct 48 mg/dL (50-130) L 11/01/21 05:29 HDL Cholesterol 54 mg/dL (40-59) 11/01/21 05:29 Cholesterol/HDL Ratio 1.90 % 11/01/21 05:29 TSH 3.450 mlU/mL (0.270-4.200) 11/02/21 16:01 Free T4 1.15 ng/dL (0.76-1.46) 11/02/21 16:01 Coronavirus (PCR) Negative (Negative) 11/01/21 Unknown Blood Type B POSITIVE 11/01/21 02:53 Antibody Screen Negative 11/01/21 02:53 Active Medications - Current Medications Current Medications: Generic Name Dose Route Start Last Admin Trade Name Freq PRN Reason Stop Dose Admin Acetaminophen 650 mg 11/01/21 03:07 11/06/21 10:17 Acetaminophen 325 Mg Tab PO 650 mg Q4H PRN Administration Pain MILD(1-3)/Fever >100.5/HO[place] Hydrocodone Bitart/Acetaminophen 1 each 11/01/21 04:23 11/06/21 05:24 Hydrocodone/Acetaminophen 5-325 Mg Tab PO 1 each Q6H PRN Administration Pain, Moderate (4-6) Albuterol 2.5 mg 11/01/21 03:07 Albuterol 2.5 Mg/3 Ml Nebu IH Q4HRT PRN Shortness Of Breath Aspirin 81 mg 11/01/21 10:00 11/06/21 10:16 Aspirin 81 Mg Tab Chew PO 81 mg QDAY SIMBA Administration Atorvastatin Calcium 80 mg 11/01/21 22:00 11/05/21 21:35 Atorvastatin 40 Mg Tab PO 80 mg QHS SIMBA Administration Docusate Sodium 100 mg 11/01/21 22:00 11/06/21 10:17 Docusate Sodium 100 Mg Cap PO 100 mg BID SIMBA Administration Emtricitabine 200 mg 11/04/21 10:00 11/06/21 10:17 Emtricitabine 200 Mg Cap PO 200 mg Q48HR SIMBA Administration Heparin Sodium (Porcine) 5,000 unit 11/04/21 14:00 11/06/21 05:24 Heparin 5,000 Unit/1 Ml Vial SUB-Q 5,000 unit Q8HR SIMBA Administration Hydralazine HCl 10 mg 11/01/21 03:20 Hydralazine 20 Mg/1 Ml Inj IV Q6H PRN Blood Pressure Hydralazine HCl 50 mg 11/01/21 11:00 11/06/21 05:24 Hydralazine 25 Mg Tab PO 50 mg Q8HR SIMBA Administration Sodium Chloride 500 mls @ 50 mls/hr 11/06/21 12:00 Nacl 0.9% 500 Ml IV 11/06/21 21:59 DIRECT SIMBA Isosorbide Mononitrate 30 mg 11/01/21 11:00 11/06/21 10:17 Isosorbide Mononitrate Er 30 Mg Tab PO 30 mg QDAY SIMBA Administration Nifedipine 60 mg 11/01/21 11:00 11/06/21 10:16 Nifedipine Xl 60 Mg Tab PO 60 mg QDAY SIMBA Administration Nitroglycerin 0.4 mg 11/01/21 03:07 Nitroglycerin 0.4 Mg Tab Subl SL .Q5MIN PRN Chest Pain Ondansetron HCl 4 mg 11/01/21 03:07 Ondansetron 4 Mg/2 Ml Inj IV Q8H PRN Nausea And Vomiting Pantoprazole Sodium 40 mg 11/01/21 07:30 11/06/21 10:20 Pantoprazole 40 Mg Tab PO 40 mg QDAC SIMBA Administration Sodium Chloride 10 ml 11/01/21 10:00 11/06/21 10:19 Sodium Chloride 0.9% 10 Ml Flush Syringe IV 10 ml BID SIMBA Administration Sodium Chloride 10 ml 11/01/21 03:07 Sodium Chloride 0.9% 10 Ml Flush Syringe IV PRN PRN LINE FLUSH Tenofovir Disoproxil Fumarate 300 mg 11/04/21 10:00 11/06/21 10:16 Tenofovir 300 Mg Tab PO 300 mg Q48HR SIMBA Administration Ticagrelor 90 mg 11/01/21 22:00 11/06/21 10:17 Ticagrelor 90 Mg Tab PO 90 mg BID SIMBA Administration Zolpidem Tartrate 5 mg 11/02/21 22:41 11/05/21 21:35 Zolpidem 5 Mg Tab PO 5 mg QHS PRN Administration Sleep
[2021-11-06] MEDS: DOLUTEGRAVIR 50 MG TAB PO SCH (14:12)
[2021-11-06] MEDS ORDERED: BUPIVACAINE/PF (0.5%) 5 MG/1 ML 10 ML VIAL INFILTRATI ONE (14:48)
[2021-11-06] MEDS ORDERED: LIDOCAINE (2%) 20 MG/1 ML VIAL 20 ML MDV INFILTRATI ONE (14:48)
[2021-11-06] MEDS ORDERED: SODIUM CHLORIDE 0.9% 1000 ML 1,000 ML ONE ×2 (14:48→16:43)
[2021-11-06] MEDS ORDERED: SODIUM CHLORIDE IRRI 1000 ML 1,000 ML, .VANCOMYCIN VIAL 1,000 MG IR NR (16:00)
--- NOTE | 2021-11-06 16:16 | Anesthesia Day of Surgery ---
Anesthesia Day of Surgery - Day of Surgery Patient Examined: Yes Patient H&P Reviewed: Yes Patient is NPO: Yes Cardiac Clearance: Yes
[2021-11-06] MEDS ORDERED: KETAMINE/STERILE WATER 50 MG/ML SYRINGE ONE ×2 (16:17→19:13)
[2021-11-06] MEDS ORDERED: ePHEDrine SULFATE 50 MG/1 ML INJ ONE (16:17)
--- NOTE | 2021-11-06 16:20 | Anesthesia Consultation ---
Anesthesia Consult and Med Hx Date of service: 11/06/21 - Airway Anesthetic Teeth Evaluation: Good (Mostly all missing) ROM Head & Neck: Adequate Mental/Hyoid Distance: Adequate Mallampati Class: Class II Intubation Access Assessment: Good - Pre-Operative Health Status ASA Pre-Surgery Classification: ASA3 Proposed Anesthetic Plan: MAC (GA if needed) - Pulmonary Hx Smoking: Yes Hx Asthma: No Hx Respiratory Symptoms: Yes SOB: Yes COPD: No Hx Pneumonia: No - Cardiovascular System Hx Hypertension: Yes Hx Heart Attack/AMI: Yes (On admission; stent) Hx Cardia Arrhythmia: Yes (For PPM) - Central Nervous System Hx Psychiatric Problems: Yes (depression) - Gastrointestinal Hx Gastroesophageal Reflux Disease: Yes - Endocrine Hx Renal Disease: Yes Hx End Stage Renal Disease: No Hx Liver Disease: Yes (Hep C) - Hematic Hx Sickle Cell Disease: No - Other Systems Hx Obesity: Yes - Additional Comments Anesthesia Medical History Comments: HIV+
[2021-11-06] MEDS ORDERED: ceFAZolin/Water 2 GM/20 ML 2 GM/20 ML SYRINGE IV ONE (16:26)
--- NOTE | 2021-11-06 16:56 | Event Note ---
Date: 11/06/21 Discussed dual chamber pacemaker implant for management of intermittent high grade AV block / Mobitz 2 AV block. She also has ischemic cardiomyopathy and NSVT for which she will need beta ness therapy (essential medical therapy). Risks, benefits, and alternatives were reviewed, and she agrees to proceed. Consent in chart.
[2021-11-06] MEDS ORDERED: ACETAMINOPHEN 325 MG TAB PO PRN (18:40)
--- NOTE | 2021-11-06 18:45 | Event Note ---
Date: 11/06/21 Patient underwent PM implant without apparent complications. Monitor overnight. May be discharged tomorrow from EP stand point if no issues. CXR tonight. Device check tomorrow. Prescription for pain med in chart. F/u 1 week for WC.
--- NOTE | 2021-11-06 19:05 | Post Anesthesia Evaluation ---
- Post Anesthesia Evaluation Patient Participated: Yes Airway Patent: Yes Stable Respiratory Function: Yes Nausea/Vomiting: No Temp > 96.8F: Yes Pain Manageable: Yes Adequeate Hydration: Yes Anesthesia Complications: No Block Receding Appropriately: Not Applicable Patient on Ventilator: No
[2021-11-06] MEDS ORDERED: HYDROmorphone 1 MG/1 ML INJ ONE (19:12)
[2021-11-06] MEDS ORDERED: propofoL 200 MG/20 ML VIAL IV ONE ×2 (19:12)
[2021-11-06] MEDS: ZOLPIDEM 5 MG TAB PO PRN (22:24)
[2021-11-07] MEDS: HYDROcodone/ACETAMINOPHEN 5-325 MG TAB PO PRN ×2 (00:23→06:08)
[2021-11-07] MEDS ORDERED: MORPHINE 2 MG/1 ML INJ IV ONE (03:08)
[2021-11-07] MEDS: ACETAMINOPHEN 325 MG TAB PO PRN (06:09)
[2021-11-07] MEDS: hydrALAZINE 25 MG TAB PO SCH (06:10)
[2021-11-07] MEDS: HEPARIN 5,000 UNIT/1 ML VIAL SUB-Q SCH (06:13)
--- NOTE | 2021-11-07 08:23 | Discharge Summary ---
Providers - Providers Date of Admission: 11/01/21 03:07 Date of discharge: 11/07/21 Attending physician: ERICK SMALL MD 11/01/21 Consult to Cardiac Rehabilitation [CONS] Routine Reason For Exam: Phase 1 Consult to Cardiac Rehabilitation [CONS] Routine Reason For Exam: post pci 11/01/21 02:59 Consult to Physician [CONS] Stat Comment: Consulting Provider: VICENTE LINARES Physician Instructions: Reason For Exam: STEMI 11/01/21 03:07 Consult to Cardiology [CONS] Routine Consulting Provider: VICENTE LINARES Reason For Exam: stemi 11/06/21 18:43 Consult to Cardiac Rehabilitation [CONS] Routine Reason For Exam: Cardiac Rehab Evaluation Primary care physician: SHEET METAL SUPERINTENDENT Hospitalization Reason for admission: chest pain Condition: Fair Hospital course: Assessment and plan: 60-year-old female with morbid obesity, HTN, HIV on antiretroviral therapy, hepatitis C, GERD, depression and current tobacco (half a pack per day for 20 years) abuse who presented to the emergency department on 11/01 with complaints of sharp chest pain 10/10 with chest tightness and substernal burning sensation with radiation to left chest associated with shortness of breath, nausea and vomiting. Code STEMI was called when EMS informed charge nurse patient had ST elevation on ECG. EMS administered aspirin and nitroglycerin x2. Upon arrival to emergency department stating was comfortable throughout the ECG and she was taken to Cell [facility] with cardiology where she underwent primary PCI of LAD with deployment of the stent. Post cath, admitted to ICU postop with Aggrastat and nitroglycerin drip. Nitroglycerin drip weaned off and patient started on oral antihypertensives. Cleared to transfer to the floor. COVID PCR negative. Hospital Course 11/03/2021: D/w patient that she will be observed in ICU overweekend. Patient had recent of sister and would like to leave but I recommended against this. She was advised that if she wanted to leave she would have to leave AMA. Avoid philly blockers. will follow with cardiology for further recs. Potential PPM placement on saturday. D/w pharmacy, anti-retrovirals for HIV resumed. 11/04/2021: Episodes of NSVT off BB per cardiology. Plan for PPM on saturday. Will remain in IMCU 11/05/2021: Plan for PPM saturday. Will remain in IMCU for close monitoring. 11/06/2021: PPM today. Anticipate discharge in next 24hrs per cardiology discretion. 11/07/2021: S/p ppm. tolerated placement well. all vital signs stable. ok from EP perspective for dc. Assessment and Plan Cardio: STEMI, CAD, ischemic cardiomyopathy, h/o HTN -Cardiology consulted, appreciate recommendations -99% occlusion of LAD -S/p PCI to LAD with deployment of stent x1 -Statin - aspirin 81 mg, Brilinta, hydralazine, Procardia -IV Lasix -Echo-borderline LV dilatation, mild to moderate LVH, LVEF 35 to 40%, RVSP 40 mm. -Intraprocedure noted with ischemic cardiomyopathy ejection fraction approximately 40% and anterior wall hypokinesis -Chest x-ray shows no evidence of CHF. -Per cardiology avoid ACEi or ARB due to elevated creatinine presentation - holding BB at this time. High-grade intermittent AV block, Mobitz type II -Intermittent Mobitz type II blocks noted overnight and in today on telemetry -Intermittent pauses up to 6 secondsP waves without QRS complexes Cardiology as well as EP assisting. Beta-ness and AV philly blockers on hold/to be avoided -Electrolytespotassium and magnesium normal. TSH and free T4 normal. May resolved in the setting of STEMI with stent placement -Cardiology recommends close observation in the IMCU - plan for ppm saturday Acute Hypoxic Resp. Insufficiency, ongoing tobacco abuse, morbid obesity -Home medications include albuterol -Tobacco cessation education -Supplemental oxygenation as needed -Weaned to room air -Need outpatient follow up with Pulm -At high risk for ROSLYN, needs to be screened if not already done Hep C History of GERD Acute kidney injury -Presented with a BUN/creatinine of 1.5/23 -Resolving, creatinine 1.1 -On IV diuretic with Lasix -Continue to monitor renal function and electrolytes h/o HIV -d/w pharmacy, ok to resume home antiretroviral therapy once obtained Leukocytosis, resolved -Presented with elevated WBC -Resolved -Likely reactive The high probability of a clinically significant, sudden or life threatening deterioration of the [cardiac] system(s) required my full and direct attention, intervention and personal management. The aggregate critical care time was [60] minutes. This time is in addition to time spent performing reported procedures but includes the following: [x] Data Review and interpretation [x] Patient assessment and monitoring of vital signs [x] Documentation [x] Medication orders and management Disposition: HOME / SELF CARE / HOMELESS Final Discharge Diagnosis (Prints w/discharge instructions): STEMI Time spent for discharge: 35 Core Measure Documentation - Palliative Care Palliative Care/ Comfort Measures: Not Applicable - Core Measures Any of the following diagnoses?: acute NE - Acute NE Discharge Requirements Aspirin at discharge: Yes ROBERTO/ARB for LVSD if EF <40%: Yes Beta ness at discharge: Yes Statin for LDL = or >100 mg/dl on DC: Yes Exam - Physical Exam Narrative exam: General appearance: Present: no acute distress, obese, left sided ppm implant on chest wall. - EENT Eyes: Present: PERRL, EOM intact ENT: hearing intact - Neck Neck: Present: supple - Respiratory Respiratory effort: normal Respiratory: bilateral: CTA - Cardiovascular Rhythm: regular - Extremities Extremities: No edema - Abdominal General gastrointestinal: soft, non-tender, other (Obese) - Integumentary Integumentary: Absent: rash - Psychiatric Psychiatric: appropriate mood/affect - Neurologic Neurologic: no focal deficits, moves all extremities - Constitutional Vitals: Temp Pulse Resp BP Pulse Ox 98.9 F 89 16 123/70 96 11/07/21 04:00 11/07/21 07:00 11/07/21 07:08 11/07/21 07:00 11/07/21 07:00 Plan Plan of Treatment: Hernan Jo. You were admitted for a heart attack, or STEMI. Your vice president [employer] insights placed a stent in your left anterior descending artery. You were initiated on medications to prevent blood clots from forming in your coronary arteries, medications to control your blood pressure, medications for your cholesterol, and medications to prevent chest pain. During her hospital stay will be here, your heart rate demonstrated pauses and fluctuated between low and high heart rates. A woodworking machinist placed a pacemaker in your heart to c ontrol your heart rate. You will be discharged home with prescriptions for aspirin 81 mg p.o. daily, atorvastatin 80 mg p.o. nightly, Brilinta 90 mg p.o. twice daily, isosorbide mononitrate 30 mg p.o. daily nifedipine XL 60 mg p.o. daily, Protonix 40 mg p.o. daily. He will also be discharged with a [place] to be taken every 6 hours as needed for pain. You were advised to follow-up with the computer graphic designer that saw you here at the hospital their contact information has been provided in this discharge summary. You are also advised to follow-up with your primary care doctor. Follow up with: PRIMARY MD DIPIKA [Primary Care Provider] - 7 Days VICENTE LINARES MD [Staff Physician] - 7 Days ARACELI ALEMAN MD [Staff Physician] - 7 Days Prescriptions: AtorvaSTATin [Lipitor] 80 mg PO QHS 30 Days #30 tablet Aspirin [Aspirin BABY CHEW TAB] 81 mg PO QDAY 30 Days #30 tab.chew Ticagrelor [Brilinta] 90 mg PO BID 30 Days #60 tablet ISOSORBIDE MONOnitrate [Imdur ER] 30 mg PO QDAY 30 Days #30 tablet HYDROcodone/APAP 5-325 [[place] 5-325 mg TAB] 1 each PO Q6H PRN 2 Days #8 tablet PRN Reason: Pain, Moderate (4-6) NIFEdipine XL [Procardia Xl] 60 mg PO QDAY 30 Days #30 tablet Pantoprazole [Protonix TAB] 40 mg PO QDAC 30 Days #30 tablet
[2021-11-07] MEDS: NIFEdipine XL 60 MG TAB PO SCH (09:31)
[2021-11-07] MEDS: ASPIRIN 81 MG TAB CHEW PO SCH (09:32)
[2021-11-07] MEDS: TICAGRELOR 90 MG TAB PO SCH (09:32)
[2021-11-07] MEDS: DOCUSATE SODIUM 100 MG CAP PO SCH (09:32)
[2021-11-07] MEDS: PANTOPRAZOLE 40 MG TAB PO SCH (09:35)
[2021-11-07] MEDS: DOLUTEGRAVIR 50 MG TAB PO SCH (09:36)
[2021-11-07] MEDS: EMTRICITABINE 200 MG CAP PO SCH (10:38)
--- NOTE | 2021-11-07 11:44 | Progress Note ---
Assessment and Plan - Patient Problems (1) Acute anterolateral myocardial infarction Current Visit: No Status: Inactive Plan to address problem: Status post primary PCI of the mid LAD. LV systolic function was mildly to moderately impaired on LV angiography. Patient is on guideline directed medical therapy. Beta-blockers on hold due to the patient's development of bradycardia and heart block. With the presence of pacemaker, we can start the patient on low-dose metoprolol for coronary disease. Continue dual antiplatelet therapy with baby aspirin and Brilinta. (2) Bradycardia Current Visit: Yes Status: Acute Plan to address problem: Patient demonstrates intermittent AV block with P waves and no AV conduction. She is status post pacemaker implant, however will resume low-dose metoprolol. Subjective Date of service: 11/07/21 Principal diagnosis: Acute myocardial infarction Interval history: Patient is comfortable, status post pacemaker implant. On utility accounts director today, she has a red devil sinus rhythm at 91. Blood pressure is stable. The pac emaker generator site in the left upper chest is well-healed, no hematoma. Objective Vital Signs Temp Pulse Pulse Resp Resp Resp BP 11/07/21 09:31 95 H 132/76 11/07/21 08:00 98.9 F 11/07/21 07:08 16 11/07/21 07:00 89 123/70 11/07/21 06:30 85 154/74 11/07/21 06:10 83 154/74 11/07/21 06:09 16 11/07/21 06:08 16 11/07/21 06:00 91 H 108/56 11/07/21 05:30 94 H 129/77 11/07/21 05:00 78 129/77 11/07/21 04:30 77 151/67 11/07/21 04:00 98.9 F 81 151/67 11/07/21 03:56 16 11/07/21 03:30 87 95/58 11/07/21 03:26 20 11/07/21 03:00 91 H 143/61 11/07/21 02:30 76 143/61 11/07/21 02:00 83 143/61 11/07/21 01:30 84 134/60 11/07/21 01:23 16 11/07/21 01:15 88 11/07/21 01:00 78 134/60 11/07/21 00:30 77 166/65 11/07/21 00:23 16 11/07/21 00:15 16 16 11/07/21 00:00 97.6 F 79 16 166/65 11/06/21 23:30 92 H 136/87 11/06/21 23:25 16 11/06/21 23:06 11/06/21 23:00 82 136/87 11/06/21 22:30 84 155/91 11/06/21 22:25 16 11/06/21 22:23 84 155/91 11/06/21 22:00 77 155/91 11/06/21 21:30 77 140/87 11/06/21 21:26 74 140/87 11/06/21 21:20 81 140/87 11/06/21 21:16 82 217/77 11/06/21 21:10 69 217/77 11/06/21 21:06 80 217/77 11/06/21 21:05 74 11/06/21 21:00 66 217/77 11/06/21 20:56 80 160/89 11/06/21 20:50 71 160/89 11/06/21 20:46 70 160/89 11/06/21 20:40 69 160/89 11/06/21 20:36 77 160/89 11/06/21 20:30 70 160/89 11/06/21 20:26 84 160/89 11/06/21 20:20 73 160/89 11/06/21 20:19 20 11/06/21 20:16 74 160/89 11/06/21 20:10 80 160/89 11/06/21 20:06 76 160/89 11/06/21 20:00 97.6 F 81 160/89 11/06/21 19:56 85 169/79 11/06/21 19:50 78 169/79 11/06/21 19:49 76 169/82 11/06/21 15:00 94 H 169/82 11/06/21 14:11 80 169/77 11/06/21 14:00 169/77 11/06/21 13:00 144/76 11/06/21 12:05 98.8 F 11/06/21 12:00 84 84 18 123/75 Pulse Ox 11/07/21 09:31 11/07/21 08:00 11/07/21 07:08 11/07/21 07:00 96 11/07/21 06:30 99 11/07/21 06:10 11/07/21 06:09 11/07/21 06:08 11/07/21 06:00 97 11/07/21 05:30 91 11/07/21 05:00 94 11/07/21 04:30 100 11/07/21 04:00 99 11/07/21 03:56 11/07/21 03:30 97 11/07/21 03:26 11/07/21 03:00 100 11/07/21 02:30 97 11/07/21 02:00 99 11/07/21 01:30 93 11/07/21 01:23 11/07/21 01:15 11/07/21 01:00 99 11/07/21 00:30 99 11/07/21 00:23 11/07/21 00:15 11/07/21 00:00 99 11/06/21 23:30 96 11/06/21 23:25 11/06/21 23:06 97 11/06/21 23:00 99 11/06/21 22:30 100 11/06/21 22:25 11/06/21 22:23 11/06/21 22:00 99 11/06/21 21:30 100 11/06/21 21:26 95 11/06/21 21:20 100 11/06/21 21:16 92 11/06/21 21:10 99 11/06/21 21:06 97 11/06/21 21:05 11/06/21 21:00 99 11/06/21 20:56 100 11/06/21 20:50 95 11/06/21 20:46 99 11/06/21 20:40 96 11/06/21 20:36 100 11/06/21 20:30 96 11/06/21 20:26 99 11/06/21 20:20 100 11/06/21 20:19 11/06/21 20:16 99 11/06/21 20:10 98 11/06/21 20:06 96 11/06/21 20:00 97 11/06/21 19:56 11/06/21 19:50 11/06/21 19:49 11/06/21 15:00 98 11/06/21 14:11 11/06/21 14:00 95 11/06/21 13:00 99 11/06/21 12:05 11/06/21 12:00 94 - Physical Examination General: No Apparent Distress, Other (Moderately obese) HEENT: Positive: Normocephaly Neck: Positive: neck supple, trachea midline Cardiac: Positive: Reg Rate and Rhythm Lungs: Positive: Decreased Breath Sounds Neuro: Positive: Grossly Intact Abdomen: Positive: Unremarkable, Soft Skin: Positive: Clear Extremities: Absent: edema
[2021-11-07] MEDS ORDERED: METOPROLOL TARTRATE 25 MG TAB PO SCH (12:00)
[2021-11-07 12:09] VITALS: BP 133/57
--- NOTE | 2021-11-07 15:55 | Operative Report ---
Operative Report Operative Report: INSERTION OF DUAL CHAMBER PACEMAKER PATIENT NAME: Hernan Jo : 1960 MR#: [id number] DATE OF PROCEDURE: 11/06/2021 [facility]OSPITAL: [facility] LICENSED VOCATIONAL NURSE: Nahun Pierre M.D. Pre Operative Diagnosis: High Grade AV block Post Operative Diagnosis: High Grade AV block s/p dual chamber pacemaker COMPLICATIONS: None PROCEDURE: The risks, benefits, and alternatives were explained to the patient. The patient was prepped and draped in standard fashion for implantable pacemaker insertion following sterile preparation of the left pectoral region. Local anesthesia was obtained by infiltration with 1% Lidocaine. Two left axillary venous access were obtained using ultrasound guidance (images were saved for the medical record). A 4 cm incision was made in the infraclavicular region. At this point point, further dissection was carried out by blunt dissection and electrocautery. A pocket was created, and the wires were harvested into the pocket. Using a peel away introducer, the ventricular lead was advanced to the RV and positioned to the apical septum The helix was extended and endocardial measurements were made. Using a second peel away introducer in the axillary vein, the atrial lead was advanced to the level of the right atrial appendage. The helix was extended and endocardial measurements were made. After the attainment of acceptable endocardial values, both leads were sutured over their suture sleeves to the underlying tissue. Inspection was performed to rule out any bleeding. The pocket was irrigated with antibiotic solution. The pulse generator was then connected to the leads and the setscrews tightened appropriately. The pulse generator was placed in the newly formed pocket and connections were verified. The wound was closed using 2-0 and 4-0 Vicryl. A clean sterile dressing was placed over the wound. The patient was returned to the room in stable condition without complication or sequelae. FINDINGS: The following endocardial parameters were obtained: Mixing Machine Operator Model# Serial # Sensing Threshold Impedance RA Medtronic [id number] 2.5mV 0.5V @ 0.4ms 494ohms RV Medtronic 5076 [id number] >24mV 0.625V @ 0.4ms 836ohms PROGRAMMING: The implanted Medtronic generator (Model # Araseli S DR, Serial #[id number]) was programmed: Mode Lower Rate Maximum Rate AV/PV delay AAI/DDD 60 bpm 130 bpm 180 msec/ 160 msec Pulse Amplitude Pulse Width Sensitivity RA 3.5Volts 0.4msec Automatic RV 3.5Volts 0.4msec Automatic CONCLUSIONS: Successful Dual Chamber Pacemaker Implant Estimated Blood Loss: <10 cc PLAN: Routine post op orders, CXR, F/u as OP, Enroll in remote monitoring Nahun Pierre M.D. cc: [place] [address]
== END 2021-11-07 13:00 | disposition home or self-care (01) | DRG 242 ==
LOC: ED 02:38 → CC1 03:07 → 4A 23:34 → IMCU 11-03 02:49
PROVIDERS: ADMIT Hospitalist; ATTEND Internal Medicine
PROC: 027034Z Dilation of Coronary Artery, One Artery with Drug-eluting Intraluminal Device, Percutaneous Approach (ICD-10-PCS; 2021-11-01)
PROC: 4A023N7 Measurement of Cardiac Sampling and Pressure, Left Heart, Percutaneous Approach (ICD-10-PCS; 2021-11-01)
PROC: B2111ZZ Fluoroscopy of Multiple Coronary Arteries using Low Osmolar Contrast (ICD-10-PCS; 2021-11-01)
PROC: B2151ZZ Fluoroscopy of Left Heart using Low Osmolar Contrast (ICD-10-PCS; 2021-11-01)
PROC: 0JH606Z Insertion of Pacemaker, Dual Chamber into Chest Subcutaneous Tissue and Fascia, Open Approach (ICD-10-PCS; principal; 2021-11-07)
PROC: 02HK3JZ Insertion of Pacemaker Lead into Right Ventricle, Percutaneous Approach (ICD-10-PCS; 2021-11-07)
PROC: 02H63JZ Insertion of Pacemaker Lead into Right Atrium, Percutaneous Approach (ICD-10-PCS; 2021-11-07)
DX: I44.1 Atrioventricular block, second degree (principal); I21.09 ST elevation (STEMI) myocardial infarction involving other coronary artery of anterior wall; J96.01 Acute respiratory failure with hypoxia; N17.0 Acute kidney failure with tubular necrosis; Z68.42 Body mass index [BMI] 45.0-49.9, adult; I10 Essential (primary) hypertension; K21.9 Gastro-esophageal reflux disease without esophagitis; B18.2 Chronic viral hepatitis C; I25.5 Ischemic cardiomyopathy; Z82.49 Family history of ischemic heart disease and other diseases of the circulatory system; E66.01 Morbid (severe) obesity due to excess calories; Z20.822 Contact with and (suspected) exposure to COVID-19; Z21 Asymptomatic human immunodeficiency virus [HIV] infection status
CPT/HCPCS: 33208; 36415; 71045; 80048; 80053; 80061; 82962; 83735; 84100; 84439; 84443; 84484; 85007; 85025; 85027; 85610; 85730; 86850; 86900; 86901; 92941; 93005; 93306; 93458; 94760; 99406; G0378; J1815; J3490; J7120; J7121; Q0162; C1725; C1769; C1785; C1874; C1887; C1892; C1894; C1898; C9606; J0690; J1170; J1644; J1940; J2250; J2270; J2704; J3010; J3246; J3475; J7030; Q9967; U0003

== ENCOUNTER 2022-02-20 14:14 | Emergency (ER) | payer MEDICARE ==
[2022-02-20 14:51] VITALS: BP 117/68
[2022-02-20 15:36] LABS: Basophils % (Auto) 0.5 % (0.0-1.8); Eosinophils # (Auto) 0.1 K/mm3 (0.0-0.4); Eosinophils % (Auto) 1.5 % (0.0-4.3); Hematocrit 34.1 % (30.3-42.9); Hemoglobin 11.2 gm/dl (10.1-14.3); Lymphocytes # (Auto) 3.3 K/mm3 (1.2-5.4); Lymphocytes % (Auto) 39.2 % (13.4-35.0); Mean Corpuscular HGB Conc 33 % (30-34); Mean Corpuscular Volume 99 fl (79-97); Monocytes # (Auto) 0.6 K/mm3 (0.0-0.8); Monocytes % (Auto) 7.1 % (0.0-7.3); Platelet Count 297 K/mm3 (140-440); Red Blood Count 3.44 M/mm3 (3.65-5.03); Red Cell Distribution Width 15.7 % (13.2-15.2)
[2022-02-20 15:58] LABS: Alanine Aminotransferase 10 units/L (7-56); BUN/Creatinine Ratio 15; Blood Urea Nitrogen 24 mg/dL (7-17); Calcium 9.3 mg/dL (8.4-10.2); Hemolysis Index 15
--- NOTE | 2022-02-20 16:33 | Emergency Department Report ---
ED Chest Pain HPI - General Chief Complaint: Chest Pain Stated Complaint: t PUI?: No Time Seen by Provider: 02/20/22 15:54 Source: patient Mode of arrival: Ambulatory Limitations: No Limitations - History of Present Illness Initial Comments: Patient is a 61-year-old -[place] female with a long complicated medical history who comes to the ER with chest pain. She states that it is substernal it is both sharp and dull. She has some nausea. No diaphoresis. Nothing seems to make it better or worse. She takes an aspirin daily. She does have a cardiac history. She has a pacemaker. Her twelve-lead was unremarkable in triage. Although she states her pain is atypical and not like with her NM is concerning given her risk factors. She denies shortness of breath. Denies fever or chills. Denies swelling of her extremities. She states that she does follow-up with cardiology outpatient. Patient denies cough. She does continue to smoke. MD Complaint: chest pain -: Gradual, hour(s) Onset: during rest, during exertion Pain Location: substernal, left chest Pain Radiation: none Severity: mild Quality: dull Consistency: intermittent Improves With: nothing Worsens With: nothing re: nausea. denies: vomting, diaphoresis, dyspnea, sense of impending doom Other Symptoms: denies: cough, fever, syncope, rash, acid taste in mouth, leg swelling, palpitations Treatments Prior to Arrival: none Aspirin use within the Past 7 Days: (1) Yes - Related Data Home Medications Medication Instructions Recorded Confirmed Last Taken ARIPiprazole [Abilify TAB] 5 mg PO DAILY 11/02/21 02/20/22 1 Day Ago ~02/19/22 Albuterol Mdi (or & Nicu Only) 2 puff IH QID PRN 11/02/21 02/20/22 1 Day Ago [ProAir HFA Inhaler] ~02/19/22 AtorvaSTATin [Lipitor] 40 mg PO QHS 11/02/21 02/20/22 1 Day Ago ~02/19/22 Bictegrav/Emtricit/Tenofov Ala 1 tab PO QDAY 11/02/21 02/20/22 1 Day Ago [Biktarvy 50-200-25 mg Tablet] ~02/19/22 Budesonide/Formoterol Fumarate 2 puff IH QDAY PRN 11/02/21 02/20/22 1 Day Ago [Symbicort 80-4.5 Mcg Inhaler] ~02/19/22 Candesartan (Nf) [Atacand (Nf)] 32 mg PO QDAY 11/02/21 02/20/22 1 Day Ago ~02/19/22 Diclofenac 1% [Diclofenac 1% 2 - 4 gm TP QID PRN 11/02/21 02/20/22 1 Day Ago topical gel] ~02/19/22 Valacyclovir HCl [Valacyclovir] 1,000 mg PO QDAY 11/02/21 02/20/22 1 Day Ago ~02/19/22 Previous Rx's Medication Instructions Recorded Last Taken Type Aspirin [Aspirin BABY CHEW TAB] 81 mg PO QDAY 30 Days #30 tab.chew 11/07/21 1 Day Ago Rx ~02/19/22 Dolutegravir [Tivicay] 50 mg PO DAILY tablet 11/07/21 1 Day Ago Rx ~02/19/22 Emtricitabine [Emtriva] 200 mg PO Q48HR capsule 11/07/21 1 Day Ago Rx ~02/19/22 ISOSORBIDE MONOnitrate [Imdur ER] 30 mg PO QDAY 30 Days #30 tablet 11/07/21 1 Day Ago Rx ~02/19/22 NIFEdipine XL [Procardia Xl] 60 mg PO QDAY 30 Days #30 tablet 11/07/21 1 Day Ago Rx ~02/19/22 Pantoprazole [Protonix TAB] 40 mg PO QDAC 30 Days #30 tablet 11/07/21 1 Day Ago Rx ~02/19/22 Tenofovir [Viread] 300 mg PO Q48HR tablet 11/07/21 1 Day Ago Rx ~02/19/22 Ticagrelor [Brilinta] 90 mg PO BID 30 Days #60 tablet 11/07/21 1 Day Ago Rx ~02/19/22 Allergies Allergy/AdvReac Type Severity Reaction Status Date / Time No Known Allergies Allergy Verified 02/20/22 15:25 Heart Score - HEART Score History: Slightly suspicious EKG: Non-specific Age: > 65 Risk factors: > 3 risk factors or hx of atherosclerotic disease Troponin: < normal limit HEART Score: 5 - EKG Read Time Time EKG Completed: 13:00 EKG Read Time: 13:00 - Critical Actions Critical Actions: 4-6 pts:12-16.6% risk of adverse cardiac event. Should be admitted ED Review of Systems ROS: Stated complaint: t Other details as noted in HPI Comment: All other systems reviewed and negative ED Past Medical Hx - Past Medical History Previous Medical History?: Yes Hx Hypertension: Yes Hx Heart Attack/AMI: Yes (On admission; stent) Hx Congestive Heart Failure: No Hx Diabetes: No Hx GERD: Yes Hx Liver Disease: Yes (Hep C) Hx Renal Disease: Yes Hx Sickle Cell Disease: No Hx Psychiatric Treatment: Yes (Depression) Hx Asthma: No Hx COPD: No Hx Tuberculosis: No Hx Dementia: No Hx HIV: Yes Additional medical history: Hep C - Surgical History Past Surgical History?: Yes Additional Surgical History: Hysterectomy. Knee replacement. pacemaker - Family History Family history: no significant - Social History Smoking Status: Current Every Day Smoker Substance Use Type: Alcohol - Medications Home Medications: Home Medications Medication Instructions Recorded Confirmed Last Taken Type ARIPiprazole [Abilify TAB] 5 mg PO DAILY 11/02/21 02/20/22 1 Day Ago History ~02/19/22 Albuterol Mdi (or & Nicu Only) 2 puff IH QID PRN 11/02/21 02/20/22 1 Day Ago History [ProAir HFA Inhaler] ~02/19/22 AtorvaSTATin [Lipitor] 40 mg PO QHS 11/02/21 02/20/22 1 Day Ago History ~02/19/22 Bictegrav/Emtricit/Tenofov Ala 1 tab PO QDAY 11/02/21 02/20/22 1 Day Ago History [Biktarvy 50-200-25 mg Tablet] ~02/19/22 Budesonide/Formoterol Fumarate 2 puff IH QDAY PRN 11/02/21 02/20/22 1 Day Ago History [Symbicort 80-4.5 Mcg Inhaler] ~02/19/22 Candesartan (Nf) [Atacand (Nf)] 32 mg PO QDAY 11/02/21 02/20/22 1 Day Ago History ~02/19/22 Diclofenac 1% [Diclofenac 1% 2 - 4 gm TP QID PRN 11/02/21 02/20/22 1 Day Ago History topical gel] ~02/19/22 Valacyclovir HCl [Valacyclovir] 1,000 mg PO QDAY 11/02/21 02/20/22 1 Day Ago History ~02/19/22 Aspirin [Aspirin BABY CHEW TAB] 81 mg PO QDAY 30 Days #30 tab.chew 11/07/21 02/20/22 1 Day Ago Rx ~02/19/22 Dolutegravir [Tivicay] 50 mg PO DAILY tablet 11/07/21 02/20/22 1 Day Ago Rx ~02/19/22 Emtricitabine [Emtriva] 200 mg PO Q48HR capsule 11/07/21 02/20/22 1 Day Ago Rx ~02/19/22 ISOSORBIDE MONOnitrate [Imdur ER] 30 mg PO QDAY 30 Days #30 tablet 11/07/21 02/20/22 1 Day Ago Rx ~02/19/22 NIFEdipine XL [Procardia Xl] 60 mg PO QDAY 30 Days #30 tablet 11/07/21 02/20/22 1 Day Ago Rx ~02/19/22 Pantoprazole [Protonix TAB] 40 mg PO QDAC 30 Days #30 tablet 11/07/21 02/20/22 1 Day Ago Rx ~02/19/22 Tenofovir [Viread] 300 mg PO Q48HR tablet 11/07/21 02/20/22 1 Day Ago Rx ~02/19/22 Ticagrelor [Brilinta] 90 mg PO BID 30 Days #60 tablet 11/07/21 02/20/22 1 Day Ago Rx ~02/19/22 ED Physical Exam - General Limitations: No Limitations General appearance: alert, in no apparent distress - Head Head exam: Present: atraumatic, normocephalic - Eye Eye exam: Present: normal appearance - ENT ENT exam: Present: mucous membranes moist - Neck Neck exam: Present: normal inspection - Respiratory Respiratory exam: Present: normal lung sounds bilaterally. Absent: respiratory distress - Cardiovascular Cardiovascular Exam: Present: regular rate, normal rhythm. Absent: systolic murmur, diastolic murmur, rubs, gallop - GI/Abdominal GI/Abdominal exam: Present: soft, normal bowel sounds - Extremities Exam Extremities exam: Present: normal inspection - Back Exam Back exam: Present: normal inspection - Neurological Exam Neurological exam: Present: alert, oriented X3 - Psychiatric Psychiatric exam: Present: normal affect, normal mood - Skin Skin exam: Present: warm, dry, intact, normal color, other (edema ble ). Absent: rash ED Course Vital Signs 02/20/22 02/20/22 14:44 17:00 Temperature 97.9 F Pulse Rate 60 Respiratory 20 18 Rate Blood Pressure 117/68 O2 Sat by Pulse 98 Oximetry GEORGI score - Georgi Score Age > 65: (1) Yes Aspirin use within the Past 7 Days: (1) Yes 3 or more CAD Risk Factors: (1) Yes 2 or more Angina events in past 24 hrs: (1) Yes Known CAD with more than 50% Stenosis: (0) No Elevated Cardiac Markers: (0) No ST Deviation Greater than 0.5mm: (0) No GEORGI Score: 4 ED Medical Decision Making - Lab Data Result diagrams: 02/20/22 15:12 02/20/22 15:12 - EKG Data -: EKG Interpreted by Ny EKG shows normal: sinus rhythm Rate: normal - EKG Data When compared to previous EKG there are: no significant change Interpretation: no acute changes - Radiology Data Radiology results: report reviewed, image reviewed nap - Medical Decision Making Lab Results 02/20/22 02/20/22 Range/Units 15:12 15:12 WBC 8.5 (4.5-11.0) K/mm3 RBC 3.44 L (3.65-5.03) M/mm3 Hgb 11.2 (10.1-14.3) gm/dl Hct 34.1 (30.3-42.9) % MCV 99 H (79-97) fl MCH 33 H (28-32) pg MCHC 33 (30-34) % RDW 15.7 H (13.2-15.2) % Plt Count 297 (140-440) K/mm3 Lymph % (Auto) 39.2 H (13.4-35.0) % [place] % (Auto) 7.1 (0.0-7.3) % Eos % (Auto) 1.5 (0.0-4.3) % Baso % (Auto) 0.5 (0.0-1.8) % Lymph # (Auto) 3.3 (1.2-5.4) K/mm3 [place] # (Auto) 0.6 (0.0-0.8) K/mm3 Eos # (Auto) 0.1 (0.0-0.4) K/mm3 Baso # (Auto) 0.0 (0.0-0.1) K/mm3 Seg Neutrophils % 51.7 (40.0-70.0) % Seg Neutrophils # 4.4 (1.8-7.7) K/mm3 Sodium 136 L (137-145) mmol/L Potassium 4.9 (3.6-5.0) mmol/L Chloride 102.0 (98-107) mmol/L Carbon Dioxide 21 L (22-30) mmol/L Anion Gap 18 mmol/L BUN 24 H (7-17) mg/dL Creatinine 1.6 H (0.6-1.2) mg/dL Estimated GFR 40 ml/min BUN/Creatinine Ratio 15 % Glucose 89 (65-100) mg/dL Calcium 9.3 (8.4-10.2) mg/dL Total Bilirubin 0.30 (0.1-1.2) mg/dL AST 17 (5-40) units/L ALT 10 (7-56) units/L Alkaline Phosphatase 197 H (35-129) units/L Troponin T < 0.010 (0.00-0.029) ng/mL Total Protein 7.6 (6.3-8.2) g/dL Albumin 4.0 (3.9-5) g/dL Albumin/Globulin Ratio 1.1 % Vital Signs 02/20/22 02/20/22 14:44 17:00 Temperature 97.9 F Pulse Rate 60 Respiratory 20 18 Rate Blood Pressure 117/68 O2 Sat by Pulse 98 Oximetry 1800 second troponin is pending. Patient did not want a wait. She states that she has something important to do at home. Patient signed AMA form. patient advised that this could be life-threatening given her cardiac history. He understands that she could walk out and . - Differential Diagnosis Rule out ACS, CHF Critical care attestation.: If time is entered above; I have spent that time in minutes in the direct care of this critically ill patient, excluding procedure time. ED Disposition Clinical Impression: Chest pain Disposition: 07 LEFT AGAINST MEDICAL ADVICE Is pt being admited?: No Does the pt Need Aspirin: No Condition: Stable Instructions: Nonspecific Chest Pain, Adult Forms: AMA Form Time of Disposition: 16:33
--- NOTE | 2022-02-20 16:45 | XRay Report ---
CHEST 2 VIEWS INDICATION / CLINICAL INFORMATION: Chest pain. COMPARISON: 11/02/2021 FINDINGS: SUPPORT DEVICES: Cardiac pacemaker leads appear well-positioned. HEART / MEDIASTINUM: No significant abnormality. LUNGS / PLEURA: No significant pulmonary or pleural abnormality. No pneumothorax. ADDITIONAL FINDINGS: No significant additional findings. IMPRESSION: 1. No acute findings. Signer Name: Artur Lowry MD Signed: 02/20/2022 4:40 PM Workstation Name: [id number]
[2022-02-20] MEDS ORDERED: traMADol 50 MG TAB PO ONE (16:49)
--- NOTE | 2022-02-22 10:46 | Electrocardiograph Report ---
[facility] Test Date: 2022-02-20 Test Time: 14:36:56 Pat Name: BEKA BELLO Department: Room: Gender: F Analytics Manager: CHAIM SEARSB: 1960 Requested By: FRANCES KARIMI Order Number: [id number] Reading MD: Victoriano Pretty Measurements Intervals [place] Rate: 60 P: [place]: 254 QRS: 7 QRSD: 91 T: 36 QT: 463 QTc: 463 Interpretive Statements Atrial-paced complexes Prolonged OH interval Probable anteroseptal infarct, old Compared to ECG 11/06/2021 13:13:19 First degree AV block now present Sinus rhythm no longer present Possible ischemia no longer present Myocardial infarct finding still present Electronically Signed On 02-22-2022 10:45:37 EDT by Victoriano Pretty
== END 2022-02-20 19:00 | disposition left against medical advice (07) ==
LOC: ED 14:14
DX: R07.9 Chest pain, unspecified (principal); F17.200 Nicotine dependence, unspecified, uncomplicated; F10.20 Alcohol dependence, uncomplicated
CPT/HCPCS: 36415; 71046; 80053; 84484; 85025; 93005; 99284

== ENCOUNTER 2022-03-26 17:24 | Emergency (ER) | payer MEDICARE ==
[2022-03-27] MEDS ORDERED: ASPIRIN 81 MG TAB CHEW PO ONE (00:53)
[2022-03-27] MEDS ORDERED: MORPHINE 4 MG/1 ML INJ IV ONE (00:53)
[2022-03-27] MEDS ORDERED: ONDANSETRON 4 MG/2 ML INJ IV ONE (00:53)
[2022-03-27 01:27] LABS: Basophils # (Auto) 0.1 K/mm3 (0.0-0.1); Basophils % (Auto) 0.6 % (0.0-1.8); Eosinophils # (Auto) 0.2 K/mm3 (0.0-0.4); Eosinophils % (Auto) 1.9 % (0.0-4.3); Hematocrit 32.9 % (30.3-42.9); Hemoglobin 11.3 gm/dl (10.1-14.3); Lymphocytes # (Auto) 3.6 K/mm3 (1.2-5.4); Lymphocytes % (Auto) 44.3 % (13.4-35.0); Mean Corpuscular HGB Conc 34 % (30-34); Mean Corpuscular Volume 99 fl (79-97); Monocytes # (Auto) 0.5 K/mm3 (0.0-0.8); Monocytes % (Auto) 6.7 % (0.0-7.3); Platelet Count 301 K/mm3 (140-440); Red Blood Count 3.34 M/mm3 (3.65-5.03); Red Cell Distribution Width 14.6 % (13.2-15.2)
--- NOTE | 2022-03-27 01:33 | XRay Report ---
CHEST 2 VIEWS INDICATION / CLINICAL INFORMATION: chest pain. COMPARISON: 02/20/2022 FINDINGS: SUPPORT DEVICES: Left subclavian pacemaker again noted. HEART / MEDIASTINUM: No significant abnormality. LUNGS / PLEURA: No significant pulmonary or pleural abnormality. No pneumothorax. ADDITIONAL FINDINGS: No significant additional findings. IMPRESSION: 1. No acute findings. Signer Name: Roshan Vega MD Signed: 03/27/2022 1:29 AM Workstation Name: [id number]
--- NOTE | 2022-03-27 01:36 | Emergency Department Report ---
Upper Extremity - HPI Chief Complaint: Extremity Injury, Upper Stated Complaint: LEFT ARM PAIN Time Seen by Provider: 03/27/22 01:22 Upper Extremity: Left Shoulder (lifting up worsen pain x the last 4 days ) Occurred When: 4 Days Mechanism: Unsure Severity: moderate Symptoms: Yes Pain with Movement, Yes Limited Range of Movement, No Deformity, No Numbness, No Weakness, No Swelling, No Bruising/Ecchymosis, No Laceration or Abrasion ED Review of Systems ROS: Stated complaint: LEFT ARM PAIN Other details as noted in HPI Comment: All other systems reviewed and negative Musculoskeletal: myalgia (left shoulder pain without warmth or erythema) ED Past Medical Hx - Past Medical History Hx Hypertension: Yes Hx Heart Attack/AMI: Yes (On admission; stent) Hx Congestive Heart Failure: No Hx Diabetes: No Hx GERD: Yes Hx Liver Disease: Yes (Hep C) Hx Renal Disease: Yes Hx Sickle Cell Disease: No Hx Psychiatric Treatment: Yes (Depression) Hx Asthma: No Hx COPD: No Hx Tuberculosis: No Hx Dementia: No Hx HIV: Yes Additional medical history: Hep C - Surgical History Additional Surgical History: Hysterectomy. Knee replacement. pacemaker - Social History Smoking Status: Current Every Day Smoker Substance Use Type: Alcohol - Medications Home Medications: Home Medications Medication Instructions Recorded Confirmed Last Taken Type ARIPiprazole [Abilify TAB] 5 mg PO DAILY 11/02/21 02/20/22 1 Day Ago History ~02/19/22 Albuterol Mdi (or & Nicu Only) 2 puff IH QID PRN 11/02/21 02/20/22 1 Day Ago History [ProAir HFA Inhaler] ~02/19/22 AtorvaSTATin [Lipitor] 40 mg PO QHS 11/02/21 02/20/22 1 Day Ago History ~02/19/22 Bictegrav/Emtricit/Tenofov Ala 1 tab PO QDAY 11/02/21 02/20/22 1 Day Ago History [Biktarvy 50-200-25 mg Tablet] ~02/19/22 Budesonide/Formoterol Fumarate 2 puff IH QDAY PRN 11/02/21 02/20/22 1 Day Ago History [Symbicort 80-4.5 Mcg Inhaler] ~02/19/22 Candesartan (Nf) [Atacand (Nf)] 32 mg PO QDAY 11/02/21 02/20/22 1 Day Ago History ~02/19/22 Diclofenac 1% [Diclofenac 1% 2 - 4 gm TP QID PRN 11/02/21 02/20/22 1 Day Ago History topical gel] ~02/19/22 Valacyclovir HCl [Valacyclovir] 1,000 mg PO QDAY 11/02/21 02/20/22 1 Day Ago History ~02/19/22 Aspirin [Aspirin BABY CHEW TAB] 81 mg PO QDAY 30 Days #30 tab.chew 11/07/21 02/20/22 1 Day Ago Rx ~02/19/22 Dolutegravir [Tivicay] 50 mg PO DAILY tablet 11/07/21 02/20/22 1 Day Ago Rx ~02/19/22 Emtricitabine [Emtriva] 200 mg PO Q48HR capsule 11/07/21 02/20/22 1 Day Ago Rx ~02/19/22 ISOSORBIDE MONOnitrate [Imdur ER] 30 mg PO QDAY 30 Days #30 tablet 11/07/21 02/20/22 1 Day Ago Rx ~02/19/22 NIFEdipine XL [Procardia Xl] 60 mg PO QDAY 30 Days #30 tablet 11/07/21 02/20/22 1 Day Ago Rx ~02/19/22 Pantoprazole [Protonix TAB] 40 mg PO QDAC 30 Days #30 tablet 11/07/21 02/20/22 1 Day Ago Rx ~02/19/22 Tenofovir [Viread] 300 mg PO Q48HR tablet 11/07/21 02/20/22 1 Day Ago Rx ~02/19/22 Ticagrelor [Brilinta] 90 mg PO BID 30 Days #60 tablet 11/07/21 02/20/22 1 Day Ago Rx ~02/19/22 Ketorolac [Toradol] 10 mg PO Q6H PRN 5 Days #20 tab NS 03/27/22 Unknown Rx hydrOXYzine PAMOATE [Vistaril] 25 mg PO Q6HR PRN 5 Days #15 03/27/22 Unknown Rx capsule NS Upper Extremity Exam - Exam General: Vital signs noted. No distress. Alert and acting appropriately. Head and Torso: No HEENT Abnormality, No Neck Tenderness, No Chest/Lungs Abnormality, No Abdominal Tenderness, No Back Tenderness Shoulder Exam: Yes Shoulder Tenderness (left anterior shoulder ), No Clavicle Tenderness, No Normal Range of Motion in Shoulder (reduced due to pain ), No Shoulder Deformity, No AC Joint Tenderness Arm Exam: No Arm/Humerus Tenderness, No Arm Deformity Elbow: Yes Normal Range of Motion in Elbow, No Elbow Tenderness, No Elbow Deformity Forearm: No Forearm Tenderness, No Forearm Deformity, No Pain with Pronation, No Pain with Supination Wrist: Yes Normal ROM in Wrist, No Wrist Tenderness, No Wrist Deformity, No Snuffbox Tenderness, No Pain with Axial Thumb Compression Hand: Yes Normal ROM in Digit(s), No Hand Tenderness, No Hand Deformity, No Digit Tenderness, No Digit(s) Deformity, No Tendon Dysfunction CMS Exam: Yes Normal Distal Pulses, Yes Normal Capillary Refill, Yes Normal Distal Sensation, No Broken Skin ED Course - Reevaluation(s) Reevaluation #1: 03/27/22 01:37 here with left shoulder pain and area of pacemaker with no erythema -- this is likely shoulder strain vs pacemaker muscle infection-- considering this patient age will check routine cardiopulmonary including troponin, bnp and routine labs including CBC, CMP and CXR-- and given Morphine for symptomatic treatment. 03/27/22 05:00 Noted with unremarkable work-up including EKG and troponin which supports the notion that this is noncardiac but muscular we will discharge patient home on pain medication with close follow-up with cardiology and primary doctor. ED Medical Decision Making - Lab Data Result diagrams: 03/27/22 01:11 03/27/22 01:11 - EKG Data -: EKG Interpreted by Me - EKG Data 03/27/22 04:59 Noted with atrial paced complexes at [address] elevation or depression noted in this patient with physical pacemaker. - Radiology Data Chest x-ray with no acute pulmonary findings - Medical Decision Making See progress note for detail - Differential Diagnosis See progress note for details Critical care attestation.: If time is entered above; I have spent that time in minutes in the direct care of this critically ill patient, excluding procedure time. ED Disposition Clinical Impression: Left anterior shoulder pain Left shoulder pain Qualifiers: Chronicity: unspecified Qualified Code(s): M25.512 - Pain in left shoulder Disposition: 01 HOME / SELF CARE / HOMELESS Is pt being admited?: No Does the pt Need Aspirin: No Condition: Stable Instructions: How to Use Cold Therapy, [id number], Shoulder Pain, [id number], Musculoskeletal Pain, How to Use Cold Therapy Additional Instructions: Follow the above printed instruction as advised to help your symptoms Please call and schedule follow-up with your primary doctor/cardiology in the next 3 to 5 days for progress Please do not hesitate to call or return to emergency room if your symptoms worsen Take your pain medication as prescribed to help your symptoms Prescriptions: Ketorolac [Toradol] 10 mg PO Q6H PRN 5 Days #20 tab NS PRN Reason: Pain hydrOXYzine PAMOATE [Vistaril] 25 mg PO Q6HR PRN 5 Days #15 capsule NS PRN Reason: Pain , Severe (7-10) Time of Disposition: 05:04
[2022-03-27 01:49] LABS: Alanine Aminotransferase 9 units/L (7-56); Albumin 3.6 g/dL (3.9-5); BUN/Creatinine Ratio 18; Blood Urea Nitrogen 25 mg/dL (7-17); Calcium 9.3 mg/dL (8.4-10.2); Hemolysis Index 17
[2022-03-27 06:16] VITALS: BP 160/80
--- NOTE | 2022-03-27 12:33 | Electrocardiograph Report ---
[facility] Test Date: 2022-03-27 Test Time: 02:37:13 Pat Name: BEKA BELLO Department: Room: Gender: F Hand Mica Plate Layer: [id number] : 1960 Requested By: PETRA DAVIDOSN Order Number: [id number] Reading MD: Kodi Chavez Measurements Intervals Hamer Rate: 60 P: TX: 252 QRS: 20 QRSD: 102 T: 49 QT: 438 QTc: 438 Interpretive Statements Atrial-paced complexes Prolonged TX interval Compared to ECG 02/20/2022 14:36:56 No significant change Electronically Signed On 03-27-2022 12:32:48 EDT by Kodi Chavez
== END 2022-03-27 06:16 | disposition home or self-care (01) ==
LOC: ED 17:24
DX: M25.512 Pain in left shoulder (principal); I12.9 Hypertensive chronic kidney disease with stage 1 through stage 4 chronic kidney disease, or unspecified chronic kidney disease; N18.9 Chronic kidney disease, unspecified; K21.9 Gastro-esophageal reflux disease without esophagitis; B19.20 Unspecified viral hepatitis C without hepatic coma; F32.9 Major depressive disorder, single episode, unspecified; Z21 Asymptomatic human immunodeficiency virus [HIV] infection status; Z90.710 Acquired absence of both cervix and uterus; Z98.890 Other specified postprocedural states; F17.290 Nicotine dependence, other tobacco product, uncomplicated
CPT/HCPCS: 36415; 71046; 80053; 84484; 85025; 93005; 96374; 96375; 99284; J2270; J2405

== ENCOUNTER 2022-07-20 09:49 | Outpatient (CLI) | payer MEDICARE ==
--- NOTE | 2022-07-20 10:44 | XRay Report ---
LEFT SHOULDER 3 VIEWS INDICATION: M25.512 PAIN IN LEFT SHOULDER. COMPARISON: None. IMPRESSION: Severe end-stage osteoarthritic changes are identified at the left glenohumeral joint. T here is joint space narrowing, articular surface sclerosis and numerous subchondral cysts. The AC yana nt is within normal limits. No evidence for fracture or bone lesion. The soft tissues are unremarkab le. BILATERAL KNEES STANDING, 2 VIEWS INDICATION: Bilateral knee pain. COMPARISON: None. IMPRESSION: Right knee replacement appears in good alignment without abnormality. There are severe tricompartmental osteoarthritic changes in the left knee. No evidence for fracture, bone lesion or ac leonor soft tissue abnormality. Signer Name: Ilir Mason Jr, MD Signed: 07/20/2022 10:39 AM Workstation Name: [id number]
== END 2022-07-20 09:50 | disposition home or self-care (01) ==
LOC: XRAY 09:49
PROVIDERS: ATTEND Orthopaedic Surgery
DX: M19.012 Primary osteoarthritis, left shoulder (principal); M16.12 Unilateral primary osteoarthritis, left hip
CPT/HCPCS: 73565